=== PATIENT | female | born 1945 | race Caucasian/White ===

== ENCOUNTER 2016-04-11 16:00 | Outpatient (CLI) | payer MEDICARE, MEDICAID | END 2016-04-11 16:01 | disposition home or self-care (01) | DX: J11.1 Influenza due to unidentified influenza virus with other respiratory manifestations (principal) ==

== ENCOUNTER 2016-06-29 13:26 | Outpatient (CLI) | payer MEDICARE, MEDICAID | END 2016-06-29 13:27 | disposition home or self-care (01) | DX: R94.6 Abnormal results of thyroid function studies (principal); R73.09 Other abnormal glucose ==

== ENCOUNTER 2016-12-01 08:00 | Outpatient (CLI) | payer MEDICARE, MEDICAID ==
[2016-12-02 00:13] LABS: HEMOGLOBIN A1C 0.77 g/dL
== END 2016-12-01 08:01 | disposition home or self-care (01) ==
LOC: LAB.R 08:00
DX: E11.9 Type 2 diabetes mellitus without complications (principal)
CPT/HCPCS: 83036

== ENCOUNTER 2016-12-13 06:20 | Outpatient (CLI) | payer MEDICARE, MEDICAID ==
[2016-12-13 19:57] LABS: CALCIUM 9.2 mg/dL (8.5-10.3); CREATININE 1.3 mg/dL (0.4-1.0); POTASSIUM 4.3 mmol/L (3.5-5.0)
== END 2016-12-13 06:21 | disposition home or self-care (01) ==
LOC: LAB.R 06:20
DX: E88.9 Metabolic disorder, unspecified (principal)
CPT/HCPCS: 80048

== ENCOUNTER 2017-04-06 09:50 | Outpatient (CLI) | payer MEDICARE, MEDICAID ==
[2017-04-06 10:34] LABS: CALCIUM 9.5 mg/dL (8.5-10.3); CREATININE 1.2 mg/dL (0.4-1.0)
[2017-04-06 10:51] LABS: HB2 TOTAL 10.7 g/dL; HEMOGLOBIN A1C 0.63 g/dL; HEMOGLOBIN A1C % 7.5 % (4.6-6.2)
== END 2017-04-06 09:51 | disposition home or self-care (01) ==
LOC: LAB.R 09:50
DX: E11.9 Type 2 diabetes mellitus without complications (principal); I43 Cardiomyopathy in diseases classified elsewhere; E03.9 Hypothyroidism, unspecified
CPT/HCPCS: 80048; 83036; 84443

== ENCOUNTER 2017-05-15 11:15 | Outpatient (CLI) | payer MEDICARE, MEDICAID ==
[2017-05-15 16:29] LABS: BILIRUBIN,URINE NEGATIVE (NEGATIVE); GLUCOSE, URINE (UA) NEGATIVE (NEGATIVE); KETONES,URINE (UA) NEGATIVE (NEGATIVE); LEUKOCYTE ESTERASE, URINE TRACE (NEGATIVE); NITRITE,URINE NEGATIVE (NEGATIVE); OCCULT BLOOD,URINE NEGATIVE (NEGATIVE); PROTEIN,URINE NEGATIVE (NEGATIVE); UROBILINOGEN,URINE 0.2 (NORMAL) E.U./dL (NORMAL)
[2017-05-15 16:30] LABS: CLARITY,URINE CLEAR (CLEAR)
[2017-05-15 16:47] LABS: BACTERIA,URINE Rare /HPF (None Seen); RBC,URINE None Seen /HPF (0-5); SQUAMOUS EPITHELIAL CELL,UR MOD Squamous (<= Few)
== END 2017-05-15 11:16 | disposition home or self-care (01) ==
LOC: LAB.R 11:15
DX: R30.0 Dysuria (principal)
CPT/HCPCS: 81001; 81003; 87086

== ENCOUNTER 2017-10-02 20:00 | Outpatient (CLI) | payer MEDICARE, MEDICAID ==
[2017-10-03 00:27] LABS: BASOPHILS # (AUTO) 0.2 10^3/uL (0.0-0.1); BASOPHILS % (AUTO) 1.9 %; EOSINOPHILS # (AUTO) 0.2 10^3/uL (0.0-0.7); EOSINOPHILS % (AUTO) 2.7 %; HGB - HEMOGLOBIN 11.5 g/dL (12.0-16.0); LYMPHOCYTES # (AUTO) 2.8 10^3/uL (1.5-3.5); LYMPHOCYTES % (AUTO) 34.3 %; MEAN CORPUSCULAR HGB CONC 33.7 g/dL (32.0-36.0); MEAN CORPUSCULAR VOLUME 91.8 fL (81.0-99.0); MEAN PLATELET VOLUME 8.5 fL (7.9-10.8); MONOCYTES # (AUTO) 0.4 10^3/uL (0.0-1.0); MONOCYTES % (AUTO) 5.3 %; NEUTROPHILS # (AUTO) 4.5 10^3/uL (1.5-6.6); NEUTROPHILS % (AUTO) 55.8 %; PLT - PLATELET COUNT 247 10^3/uL (130-450); RED CELL DISTRIBUTION WIDTH 14.3 % (12.0-15.0); WHITE BLOOD COUNT 8.1 x10^3/uL (4.8-10.8)
[2017-10-03 01:06] LABS: ALBUMIN 3.5 g/dL (3.2-5.5); ALBUMIN/GLOBULIN RATIO 1.1 (1.0-2.2); BILIRUBIN,TOTAL 0.3 mg/dL (0.2-1.0); CALCIUM 9.3 mg/dL (8.5-10.3); CREATININE 1.1 mg/dL (0.4-1.0); MAGNESIUM 1.7 mg/dL (1.7-2.8); TOTAL PROTEIN 6.7 g/dL (6.7-8.2)
[2017-10-03 02:06] LABS: HB2 TOTAL 12.3 g/dL; HEMOGLOBIN A1C 0.68 g/dL; HEMOGLOBIN A1C % 7.2 % (4.6-6.2)
== END 2017-10-02 20:01 | disposition home or self-care (01) ==
LOC: LAB.R 20:00
DX: R79.89 Other specified abnormal findings of blood chemistry (principal); R73.09 Other abnormal glucose; E61.2 Magnesium deficiency; R94.6 Abnormal results of thyroid function studies
CPT/HCPCS: 80053; 83036; 83735; 84443; 85025

== ENCOUNTER 2018-03-13 19:25 | Outpatient (CLI) | payer MEDICARE, MEDICAID ==
[2018-03-13 17:12] LABS: BASOPHILS % (AUTO) 0.4 %; EOSINOPHILS # (AUTO) 0.1 10^3/uL (0.0-0.7); EOSINOPHILS % (AUTO) 1.6 %; HGB - HEMOGLOBIN 11.5 g/dL (12.0-16.0); LYMPHOCYTES # (AUTO) 2.6 10^3/uL (1.5-3.5); LYMPHOCYTES % (AUTO) 31.4 %; MEAN CORPUSCULAR HEMOGLOBIN 29.9 pg (27.0-31.0); MEAN CORPUSCULAR HGB CONC 33.2 g/dL (32.0-36.0); MEAN PLATELET VOLUME 8.3 fL (7.9-10.8); MONOCYTES # (AUTO) 0.7 10^3/uL (0.0-1.0); MONOCYTES % (AUTO) 8.1 %; NEUTROPHILS # (AUTO) 4.8 10^3/uL (1.5-6.6); NEUTROPHILS % (AUTO) 58.5 %; PLT - PLATELET COUNT 264 10^3/uL (130-450); RED BLOOD COUNT 3.86 10^6/uL (4.20-5.40); WHITE BLOOD COUNT 8.3 x10^3/uL (4.8-10.8)
[2018-03-13 17:16] LABS: CALCIUM 9.3 mg/dL (8.5-10.3); CREATININE 1.1 mg/dL (0.4-1.0)
[2018-03-13 18:19] LABS: HEMOGLOBIN A1C 0.54 g/dL; HEMOGLOBIN A1C % 6.3 % (4.6-6.2)
== END 2018-03-13 23:59 | disposition home or self-care (01) ==
LOC: LAB.R 19:25
DX: D64.9 Anemia, unspecified (principal); E11.9 Type 2 diabetes mellitus without complications
CPT/HCPCS: 80048; 82728; 83036; 85025

== ENCOUNTER 2018-04-23 08:00 | Outpatient (CLI) | payer MEDICARE, MEDICAID ==
[2018-04-23 13:59] LABS: BILIRUBIN,URINE NEGATIVE (NEGATIVE); GLUCOSE, URINE (UA) NEGATIVE (NEGATIVE); KETONES,URINE (UA) NEGATIVE (NEGATIVE); LEUKOCYTE ESTERASE, URINE NEGATIVE (NEGATIVE); NITRITE,URINE NEGATIVE (NEGATIVE); OCCULT BLOOD,URINE NEGATIVE (NEGATIVE); PH,URINE 5.5 PH (5.0-7.5); PROTEIN,URINE NEGATIVE (NEGATIVE); UROBILINOGEN,URINE 0.2 (NORMAL) E.U./dL (NORMAL)
[2018-04-23 14:14] LABS: BACTERIA,URINE Rare /HPF (None Seen); CLARITY,URINE CLEAR (CLEAR); RBC,URINE 0-5 /HPF (0-5); SQUAMOUS EPITHELIAL CELL,UR FEW Squamous (<= Few)
== END 2018-04-23 23:59 | disposition home or self-care (01) ==
LOC: LAB.R 08:00
DX: E11.9 Type 2 diabetes mellitus without complications (principal)
CPT/HCPCS: 81001

== ENCOUNTER 2018-06-05 08:00 | Outpatient (CLI) | payer MEDICARE, MEDICAID ==
[2018-06-05 22:37] LABS: CALCIUM 9.6 mg/dL (8.5-10.3); CREATININE 1.1 mg/dL (0.4-1.0)
[2018-06-05 22:57] LABS: HB2 TOTAL 11.4 g/dL; HEMOGLOBIN A1C 0.66 g/dL; HEMOGLOBIN A1C % 7.4 % (4.6-6.2)
== END 2018-06-05 23:59 | disposition home or self-care (01) ==
LOC: LAB.R 08:00
PROVIDERS: ATTEND Family Medicine
DX: E11.9 Type 2 diabetes mellitus without complications (principal)
CPT/HCPCS: 80048; 83036

== ENCOUNTER 2018-06-19 20:30 | Outpatient (CLI) | payer MEDICARE, MEDICAID ==
[2018-06-19 21:27] LABS: BASOPHILS % (AUTO) 0.4 %; EOSINOPHILS # (AUTO) 0.2 10^3/uL (0.0-0.7); EOSINOPHILS % (AUTO) 1.7 %; HGB - HEMOGLOBIN 10.3 g/dL (12.0-16.0); LYMPHOCYTES # (AUTO) 3.3 10^3/uL (1.5-3.5); LYMPHOCYTES % (AUTO) 32.6 %; MEAN CORPUSCULAR HEMOGLOBIN 29.3 pg (27.0-31.0); MEAN CORPUSCULAR HGB CONC 32.6 g/dL (32.0-36.0); MONOCYTES # (AUTO) 0.9 10^3/uL (0.0-1.0); MONOCYTES % (AUTO) 8.4 %; NEUTROPHILS # (AUTO) 5.8 10^3/uL (1.5-6.6); NEUTROPHILS % (AUTO) 56.9 %; PLT - PLATELET COUNT 261 10^3/uL (130-450); RED BLOOD COUNT 3.52 10^6/uL (4.20-5.40); WHITE BLOOD COUNT 10.2 x10^3/uL (4.8-10.8)
== END 2018-06-19 23:59 | disposition home or self-care (01) ==
LOC: LAB.R 20:30
PROVIDERS: ATTEND Family Medicine
DX: E11.9 Type 2 diabetes mellitus without complications (principal)
CPT/HCPCS: 82728; 85025

== ENCOUNTER 2018-12-13 15:15 | Outpatient (CLI) | payer MEDICARE, MEDICAID ==
[2018-12-13 16:20] LABS: BASOPHILS % (AUTO) 0.4 %; EOSINOPHILS # (AUTO) 0.1 10^3/uL (0.0-0.7); EOSINOPHILS % (AUTO) 1.3 %; HGB - HEMOGLOBIN 10.9 g/dL (12.0-16.0); LYMPHOCYTES % (AUTO) 32.8 %; MEAN CORPUSCULAR HEMOGLOBIN 29.5 pg (27.0-31.0); MEAN CORPUSCULAR HGB CONC 32.7 g/dL (32.0-36.0); MEAN CORPUSCULAR VOLUME 90.2 fL (81.0-99.0); MONOCYTES # (AUTO) 0.7 10^3/uL (0.0-1.0); NEUTROPHILS # (AUTO) 5.3 10^3/uL (1.5-6.6); PLT - PLATELET COUNT 281 10^3/uL (130-450); RED BLOOD COUNT 3.69 10^6/uL (4.20-5.40); RED CELL DISTRIBUTION WIDTH 13.9 % (12.0-15.0); WHITE BLOOD COUNT 9.2 x10^3/uL (4.8-10.8)
[2018-12-13 16:25] LABS: ALBUMIN 3.8 g/dL (3.2-5.5); ALBUMIN/GLOBULIN RATIO 1.3 (1.0-2.2); BILIRUBIN,TOTAL 0.6 mg/dL (0.2-1.0); CALCIUM 9.8 mg/dL (8.5-10.3); CREATININE 1.4 mg/dL (0.4-1.0); TOTAL PROTEIN 6.8 g/dL (6.7-8.2)
== END 2018-12-13 23:59 | disposition home or self-care (01) ==
LOC: LAB.R 15:15
DX: E11.9 Type 2 diabetes mellitus without complications (principal); E03.9 Hypothyroidism, unspecified
CPT/HCPCS: 80053; 84443; 85025

== ENCOUNTER 2019-03-02 19:40 | Outpatient (CLI) | payer MEDICARE, MEDICAID ==
[2019-03-02 20:40] LABS: BASOPHILS # (AUTO) 0.1 10^3/uL (0.0-0.1); BASOPHILS % (AUTO) 0.7 %; EOSINOPHILS # (AUTO) 0.2 10^3/uL (0.0-0.7); EOSINOPHILS % (AUTO) 2.4 %; HGB - HEMOGLOBIN 10.4 g/dL (12.0-16.0); LYMPHOCYTES # (AUTO) 3.6 10^3/uL (1.5-3.5); LYMPHOCYTES % (AUTO) 40.9 %; MEAN CORPUSCULAR HGB CONC 31.8 g/dL (32.0-36.0); MEAN CORPUSCULAR VOLUME 91.1 fL (81.0-99.0); MONOCYTES # (AUTO) 0.7 10^3/uL (0.0-1.0); MONOCYTES % (AUTO) 8.2 %; NEUTROPHILS # (AUTO) 4.1 10^3/uL (1.5-6.6); NEUTROPHILS % (AUTO) 47.2 %; PLT - PLATELET COUNT 257 10^3/uL (130-450); RED BLOOD COUNT 3.59 10^6/uL (4.20-5.40); RED CELL DISTRIBUTION WIDTH 13.9 % (12.0-15.0); WHITE BLOOD COUNT 8.7 x10^3/uL (4.8-10.8)
[2019-03-02 20:50] LABS: CALCIUM 9.9 mg/dL (8.5-10.3); CREATININE 1.3 mg/dL (0.4-1.0)
== END 2019-03-02 23:59 | disposition home or self-care (01) ==
LOC: LAB.R 19:40
PROVIDERS: ATTEND Family Medicine
DX: D50.9 Iron deficiency anemia, unspecified (principal); E11.9 Type 2 diabetes mellitus without complications
CPT/HCPCS: 80048; 82728; 85025

== ENCOUNTER 2019-04-25 08:00 | Outpatient (CLI) | payer MEDICARE, MEDICAID | END 2019-04-25 23:59 | disposition home or self-care (01) | LOC: LAB.R 08:00 | DX: D50.9 Iron deficiency anemia, unspecified (principal) | CPT/HCPCS: 82728; 85025 ==

== ENCOUNTER 2019-04-27 08:00 | Outpatient (CLI) | payer MEDICARE, MEDICAID ==
[2019-04-27 18:33] LABS: BASOPHILS # (AUTO) 0.1 10^3/uL (0.0-0.1); BASOPHILS % (AUTO) 0.9 %; EOSINOPHILS # (AUTO) 0.1 10^3/uL (0.0-0.7); EOSINOPHILS % (AUTO) 1.8 %; HGB - HEMOGLOBIN 11.6 g/dL (12.0-16.0); LYMPHOCYTES # (AUTO) 2.4 10^3/uL (1.5-3.5); LYMPHOCYTES % (AUTO) 30.3 %; MEAN CORPUSCULAR HEMOGLOBIN 29.6 pg (27.0-31.0); MEAN CORPUSCULAR HGB CONC 32.2 g/dL (32.0-36.0); MEAN CORPUSCULAR VOLUME 91.8 fL (81.0-99.0); MEAN PLATELET VOLUME 10.7 fL (7.9-10.8); MONOCYTES # (AUTO) 0.6 10^3/uL (0.0-1.0); MONOCYTES % (AUTO) 7.8 %; NEUTROPHILS # (AUTO) 4.6 10^3/uL (1.5-6.6); NEUTROPHILS % (AUTO) 58.4 %; PLT - PLATELET COUNT 238 10^3/uL (130-450); RED BLOOD COUNT 3.92 10^6/uL (4.20-5.40); RED CELL DISTRIBUTION WIDTH 13.8 % (12.0-15.0); WHITE BLOOD COUNT 7.9 x10^3/uL (4.8-10.8)
== END 2019-04-27 23:59 | disposition home or self-care (01) ==
LOC: LAB.R 08:00
PROVIDERS: ATTEND Family Medicine
DX: I43 Cardiomyopathy in diseases classified elsewhere (principal); E56.9 Vitamin deficiency, unspecified
CPT/HCPCS: 85025

== ENCOUNTER 2019-05-12 08:00 | Outpatient (CLI) | payer MEDICARE, MEDICAID ==
[2019-05-12 17:15] LABS: BASOPHILS # (AUTO) 0.1 10^3/uL (0.0-0.1); BASOPHILS % (AUTO) 0.5 %; EOSINOPHILS # (AUTO) 0.2 10^3/uL (0.0-0.7); EOSINOPHILS % (AUTO) 1.3 %; HGB - HEMOGLOBIN 10.8 g/dL (12.0-16.0); LYMPHOCYTES # (AUTO) 2.5 10^3/uL (1.5-3.5); LYMPHOCYTES % (AUTO) 21.9 %; MEAN CORPUSCULAR HEMOGLOBIN 29.8 pg (27.0-31.0); MEAN CORPUSCULAR HGB CONC 32.9 g/dL (32.0-36.0); MEAN CORPUSCULAR VOLUME 90.6 fL (81.0-99.0); MEAN PLATELET VOLUME 10.3 fL (7.9-10.8); MONOCYTES # (AUTO) 0.7 10^3/uL (0.0-1.0); MONOCYTES % (AUTO) 6.4 %; NEUTROPHILS # (AUTO) 7.8 10^3/uL (1.5-6.6); NEUTROPHILS % (AUTO) 69.4 %; PLT - PLATELET COUNT 246 10^3/uL (130-450); RED BLOOD COUNT 3.62 10^6/uL (4.20-5.40); RED CELL DISTRIBUTION WIDTH 13.5 % (12.0-15.0); WHITE BLOOD COUNT 11.2 x10^3/uL (4.8-10.8)
[2019-05-12 17:33] LABS: ALBUMIN 3.5 g/dL (3.2-5.5); ALBUMIN/GLOBULIN RATIO 1.2 (1.0-2.2); BILIRUBIN,TOTAL 0.4 mg/dL (0.2-1.0); CALCIUM 9.3 mg/dL (8.5-10.3); CREATININE 1.2 mg/dL (0.4-1.0); TOTAL PROTEIN 6.4 g/dL (6.7-8.2)
[2019-05-12 17:44] LABS: HEMOGLOBIN A1C 0.84 g/dL; HEMOGLOBIN A1C % 9.1 % (4.6-6.2)
== END 2019-05-12 23:59 | disposition home or self-care (01) ==
LOC: LAB.R 08:00
DX: I43 Cardiomyopathy in diseases classified elsewhere (principal); D50.9 Iron deficiency anemia, unspecified; I73.9 Peripheral vascular disease, unspecified; E56.9 Vitamin deficiency, unspecified; E11.9 Type 2 diabetes mellitus without complications
CPT/HCPCS: 80053; 83036; 85025

== ENCOUNTER 2019-06-17 10:43 | Outpatient (CLI) | payer MEDICARE, MEDICAID | END 2019-06-17 23:59 | disposition critical access hospital (66) | LOC: EMS 10:43 | PROVIDERS: ATTEND Surgery | DX: R06.00 Dyspnea, unspecified (principal); R03.1 Nonspecific low blood-pressure reading; M54.9 Dorsalgia, unspecified | CPT/HCPCS: A0425; A0429 ==

== ENCOUNTER 2019-06-17 11:12 | Inpatient (IN) | payer MEDICARE, MEDICAID ==
--- NOTE | 2019-06-17 11:17 | ED Physician Documentation ---
PD HPI DYSPNEA - Stated complaint Stated Complaint: C+ SOA - History obtained from History obtained from: Patient - History of Present Illness Timing - onset: How many days ago (She has been ill for about 5 or 6 days with cough fevers and some trouble breathing. She has had oxygen requirement of 3 L nasal cannula for adequate oxygenation. Today she seemed to have lower saturations in the upper 80s on the same oxygen amount but also of concern was hypotension. She had also had decreased oral intake and appeared presumably dehydrated.) Timing - onset during: Rest Timing - duration: Days (5-6) Timing - details: Gradual onset, Still present (Worsening today with increased work of breathing and also hypotension and decreased oral intake.) Inciting event(s): URI (COVID positive) Improved by: O2 Worsened by: Exertion, Coughing Associated symptoms: Fever, Cough, Wheezing. No: Hemoptysis, Chest pain / discomfort, Bilateral edema Similar symptoms before: Has not had sx before Recently seen: Other (. She was assessed by nursing staff at [facility]. I do not believe she had a physician evaluation was found to have low saturation in the upper 80s and hypotension in the 80s systolic.) Review of Systems Constitutional: reports: Fever, Chills Nose: reports: Congestion. denies: Rhinorrhea / runny nose Throat: denies: Sore throat Cardiac: denies: Chest pain / pressure, Palpitations, Pedal edema Respiratory: reports: Dyspnea, Cough, Wheezing. denies: Hemoptysis GI: reports: Nausea, Vomiting. denies: Abdominal Pain, Diarrhea : denies: Dysuria (Less urine output) Skin: denies: Rash, Lesions Neurologic: reports: Generalized weakness, Confused (baseline). denies: Focal weakness, Numbness Immunocompromised: denies: Immunocompromised PD PAST MEDICAL HISTORY - Past Medical History Cardiovascular: Hypertension, High cholesterol Respiratory: CPAP use Endocrine/Autoimmune: Type 2 diabetes, HyPOthyroidism GI: None : Incontinence HEENT: Chronic vision loss, Glaucoma Psych: Anxiety, Bipolar disorder Musculoskeletal: Osteopenia, Chronic back pain Derm: Herpes zoster - Past Surgical History Past Surgical History: Yes General: Appendectomy HEENT: Cataracts Derm: Skin cancer surgery - Present Medications Home Medications: Ambulatory Orders Medication Instructions Recorded Confirmed Clonazepam 0.25 mg PO DAILY PRN 03/14/13 06/17/19 Gabapentin [Neurontin] 300 mg PO QID 03/14/13 06/17/19 Metoprolol Tartrate [Lopressor] 25 mg PO BIDWM 03/14/13 06/17/19 OLANZapine [ZyPREXA] 15 mg PO QPM 03/14/13 06/17/19 Travoprost 0.004% Ophth Drops 1 drops EACHEYE QPM 03/14/13 06/17/19 [Travatan Z] Ascorbic Acid [Vitamin C] 500 mg PO BID 04/25/14 06/17/19 Ipratropium/Albuterol [Combivent 1 puffs INH QID 05/27/14 06/17/19 Respimat] Acetaminophen [Tylenol] 650 mg PO DAILY 06/17/19 06/17/19 Acetaminophen [Tylenol] 650 mg PO Q4H PRN 06/17/19 06/17/19 Aspirin Chewable [St [place] 81 mg PO DAILY 06/17/19 06/17/19 Aspirin] Brimonidine Tartrate 1 drops EACHEYE BID 06/17/19 06/17/19 Enalapril Maleate 10 mg PO DAILY 06/17/19 06/17/19 Ferrous Gluconate [Iron] 240 mg PO DAILY 06/17/19 06/17/19 Insulin Glargine [Lantus Solostar] 38 unit SUBQ QPM 06/17/19 06/17/19 Levothyroxine [Synthroid] 75 mcg PO QDAC 06/17/19 06/17/19 Magnesium 250 mg PO DAILY 06/17/19 06/17/19 Metformin HCl 1,000 mg PO BIDWM 06/17/19 06/17/19 Multivitamin [Theragran] 1 tab PO DAILY 06/17/19 06/17/19 Simvastatin 40 mg PO QPM 06/17/19 06/17/19 clonazePAM [Clonazepam] 0.5 mg PO DAILY 06/17/19 06/17/19 oxyCODONE/ACET 5/325 [Percocet 5 0.5 tab PO 0800,1200 06/17/19 06/17/19 mg/325 mg] oxyCODONE/ACET 5/325 [Percocet 5 1 tab PO QPM 06/17/19 06/17/19 mg/325 mg] oxyCODONE/ACET 5/325 [Percocet 5 2 tab PO Q6H PRN 06/17/19 06/17/19 mg/325 mg] - Allergies Allergies/Adverse Reactions: Allergies Allergy/AdvReac Type Severity Reaction Status Date / Time No Known Drug Allergies Allergy Verified 06/17/19 11:20 - Living Situation Living Situation: reports: With caregiver(s) Living Arrangement: reports: detention - Social History Does the pt smoke?: No Smoking Status: Former smoker Does the pt drink ETOH?: No Does the pt have substance abuse?: No - Family History Family history: reports: Non contributory - POLST Patient has POLST: Yes POLST Status: She had been DNR/DNI that was changed by the family just yesterday in response to discussion by somebody at [facility] but not sure if Dr. Rosas. PD ED PE NORMAL - Vitals Vital signs reviewed: Yes - General General: No acute distress, Well developed/nourished, Other (Somewhat forgetful with poor short-term memory. She is oriented to person and place) - HEENT HEENT: Atraumatic, Ears normal, Pharynx benign. No: Moist mucous membranes - Neck Neck: Supple, no meningeal sign, No adenopathy - Cardiac Cardiac: RRR, No murmur - Respiratory Respiratory: No: Clear bilaterally (There is diffuse expiratory wheezing type sounds and crackles diffusely. No coarse sounds per se.) - Abdomen Abdomen: Normal bowel sounds, Soft, Non tender, Non distended, No organomegaly - Female Female : Deferred - Rectal Rectal: Deferred - Back Back: No CVA TTP - Derm Derm: Normal color, Warm and dry - Extremities Extremities: No tenderness to palpate, Normal ROM s pain, No edema, No calf tenderness / cord - Neuro Neuro: Alert and oriented X 3, No motor deficit, Normal speech Results - Vitals Vitals: Vital Signs - 24 hr 06/17/19 06/17/19 06/17/19 11:21 11:32 12:13 Temperature 37.5 C Heart Rate 80 84 75 Respiratory 26 H 23 18 Rate Blood Pressure 97/68 99/52 L 96/50 L O2 Saturation 98 97 100 06/17/19 12:30 Temperature 36.8 C Heart Rate 80 Respiratory 20 Rate Blood Pressure 118/67 O2 Saturation 100 Oxygen O2 Source Nasal cannula Oxygen Flow Rate 3 - Labs Labs: Laboratory Tests 06/17/19 06/17/19 06/17/19 11:29 11:29 11:29 WBC 8.2 RBC 3.43 L Hgb 10.0 L Hct 31.9 L MCV 93.0 MCH 29.2 MCHC 31.3 L RDW 14.5 Plt Count 315 MPV 9.7 Neut # (Auto) 5.5 Lymph # (Auto) 1.8 [place] # (Auto) 0.7 Eos # (Auto) 0.0 Baso # (Auto) 0.0 Absolute Nucleated RBC 0.00 Nucleated RBC % 0.0 Sodium 131 L Potassium 5.0 Chloride 97 L Carbon Dioxide 21 Anion Gap 13.0 BUN 47 H Creatinine 2.1 H Estimated GFR (MDRD) 23 L Glucose 167 H Lactic Acid Calcium 8.7 Magnesium 2.1 Total Bilirubin 0.3 AST 33 ALT 29 Alkaline Phosphatase 57 B-Natriuretic Peptide 47 Total Protein 6.6 L Albumin 3.0 L Globulin 3.6 Albumin/Globulin Ratio 0.8 L Lipase 53 H 06/17/19 11:29 WBC RBC Hgb Hct MCV MCH MCHC RDW Plt Count MPV Neut # (Auto) Lymph # (Auto) [place] # (Auto) Eos # (Auto) Baso # (Auto) Absolute Nucleated RBC Nucleated RBC % Sodium Potassium Chloride Carbon Dioxide Anion Gap BUN Creatinine Estimated GFR (MDRD) Glucose Lactic Acid 0.8 Calcium Magnesium Total Bilirubin AST ALT Alkaline Phosphatase B-Natriuretic Peptide Total Protein Albumin Globulin Albumin/Globulin Ratio Lipase - Rads (name of study) chest xray Radiology: Prelim report reviewed (Negative for pneumonic infiltrate), See rad report PD MEDICAL DECISION MAKING - ED course Complexity details: considered differential (She is known covered positive with pneumonic breath sounds and hypoxia. Her chest x-rays does not show obvious infiltrates. However clinically she is still sounding like she is getting worse. Issue would also be underperfusion leading to general weakness and some of her symptoms. Her blood pressure was a bit improved on route here and is in the 90s systolic so mildly hypotensive. She does appear clinically dehydrated. Will give IV fluids judiciously so as to not fluid overload her. Get a chest x- ray and look for signs of heart failure as well. There is no peripheral edema or such to suggest this. She is going to need gentle hydration because of the dehydration and acute elevated creatinine. Evaluate for oxygen needs. At this point I think she is at a higher level of care than would be appropriate back at the retirement and I talked with the hospitalist.), d/w patient Departure - Departure Disposition: [facility] DC/Xfer Clinical Impression: Transient hypotension, Dehydration, Viral pneumonitis, Hypoxemia, Acute kidney injury Condition: Stable Record reviewed to determine appropriate education?: Yes Discharge Date/Time: 06/17/19 14:55
[2019-06-17] MEDS ORDERED: ACETAMINOPHEN 1,000 MG/100 ML 100 ML IV STA (12:05)
[2019-06-17] MEDS ORDERED: SODIUM CHLORIDE 0.9% 1,000 ML IV ONE (12:06)
[2019-06-17 12:17] LABS: BASOPHILS % (AUTO) 0.2 %; EOSINOPHILS % (AUTO) 0.1 %; LYMPHOCYTES # (AUTO) 1.8 10^3/uL (1.5-3.5); LYMPHOCYTES % (AUTO) 21.6 %; MEAN CORPUSCULAR HEMOGLOBIN 29.2 pg (27.0-31.0); MEAN CORPUSCULAR HGB CONC 31.3 g/dL (32.0-36.0); MEAN PLATELET VOLUME 9.7 fL (7.9-10.8); MONOCYTES # (AUTO) 0.7 10^3/uL (0.0-1.0); MONOCYTES % (AUTO) 8.8 %; NEUTROPHILS # (AUTO) 5.5 10^3/uL (1.5-6.6); NEUTROPHILS % (AUTO) 68.1 %; PLT - PLATELET COUNT 315 10^3/uL (130-450); RED BLOOD COUNT 3.43 10^6/uL (4.20-5.40); RED CELL DISTRIBUTION WIDTH 14.5 % (12.0-15.0); WHITE BLOOD COUNT 8.2 x10^3/uL (4.8-10.8)
[2019-06-17 12:26] LABS: ALBUMIN/GLOBULIN RATIO 0.8 (1.0-2.2); BILIRUBIN,TOTAL 0.3 mg/dL (0.2-1.0); CALCIUM 8.7 mg/dL (8.5-10.3); CREATININE 2.1 mg/dL (0.4-1.0); MAGNESIUM 2.1 mg/dL (1.7-2.8); TOTAL PROTEIN 6.6 g/dL (6.7-8.2)
--- NOTE | 2019-06-17 12:43 | XRAY Report ---
Reason: dyspnea and cough Procedure Date: 06/17/2019 Accession Number: [id number] / [id number] Procedure: XR - Chest 1 View X-Ray CPT Code: 33211 Final Report FULL RESULT: EXAM: CHEST RADIOGRAPHY EXAM DATE: 06/17/2019 12:32 PM. CLINICAL HISTORY: Dyspnea and cough. COMPARISON: CHEST 2 VIEW PA/LAT 04/25/2014 12:43 PM. TECHNIQUE: Portable upright AP view of the chest taken 1208 hrs. 06/17/2019. FINDINGS: Lungs/Pleura: Lungs are without consolidation. Negative for pleural fluid. Mediastinum: Heart size is normal. Patient is rotated. Other: None. IMPRESSION: Negative for pneumonic infiltrate. RADIA
[2019-06-17] MEDS ORDERED: ACETAMINOPHEN 325 MG TABLET PO PRN (12:54)
--- NOTE | 2019-06-17 14:54 | PHARMACY PROGRESS NOTE ---
- Best Possible Medication History Admit Date and Time: 06/17/19 0164 Processed by: Pharmacy Medication History completed: Yes Secondary Source(s): Facility MAR as ONLY source As the person ultimately responsible for medication therapy, providers are able to order a medication from an existing home medication list in [facility] via the "Reconcile Routine" prior to Confirmation of that medication by support representative. Such practice is discouraged except when the physician, in their clinical judgment, deems that a medical need exists for a medication without regard to previous use.
[2019-06-17 15:30] LABS: BILIRUBIN,URINE NEGATIVE (NEGATIVE); GLUCOSE, URINE (UA) NEGATIVE (NEGATIVE); KETONES,URINE (UA) NEGATIVE (NEGATIVE); LEUKOCYTE ESTERASE, URINE NEGATIVE (NEGATIVE); NITRITE,URINE NEGATIVE (NEGATIVE); OCCULT BLOOD,URINE NEGATIVE (NEGATIVE); PH,URINE 5.5 PH (5.0-7.5); PROTEIN,URINE TRACE mg/dL (NEGATIVE); UROBILINOGEN,URINE 0.2 (NORMAL) E.U./dL (NORMAL)
[2019-06-17 15:31] LABS: CLARITY,URINE CLEAR (CLEAR)
[2019-06-17] MEDS: DEXTROSE 5%-0.9% NACL 1,000 ML IV SCH (15:46)
[2019-06-17] MEDS: IPRATROPIUM/ALBUTEROL 3 ML NEB INH SCH (17:50)
--- NOTE | 2019-06-17 18:04 | HISTORY & PHYSICAL EXAMINATION ---
DATE OF SERVICE: 06/17/2019 Physician: Mirela Summers MD HISTORY OF PRESENT ILLNESS: This is a 73-year-old white female who resides at [facility]. She has a history of COPD, hypertension, anemia, diabetes, bipolar disorder, hypothyroidism and glaucoma. The patient developed low blood pressure, noticed by the staff there and a fever. They were continuing to give the blood pressure medications over the past several days despite a low-grade fever. She was brought to the Emergency Room by ambulance. The patient has tested COVID positive while residing at [facility] within this last week. The patient denies any cough. The patient was hypoxic on room air at 87% on presentation. She received a liter of fluid and blood pressure improved to 98 systolic in the Emergency Room. Chest x-ray showed no infiltrates but she was started on supplemental oxygen for the desaturation. The patient denies any wheezing or air hunger. She cannot give me a past detailed history as she is somewhat lethargic, awakening from being very somnolent when she was hypotensive. PAST MEDICAL HISTORY: Diabetes, anemia, hypertension, bipolar disorder, hypothyroidism, glaucoma, COPD. ALLERGIES: NONE. MEDICATIONS: 1. Tylenol p.r.n. 2. Vitamin C 500 mg daily. 3. Several eye drops. 4. Simvastatin 40 mg every night. 5. Oxycodone, half tablet in the morning and 1 tablet in the evening. 6. Zyprexa 15 mg every night. 7. Metoprolol tartrate 25 mg b.i.d. 8. Metformin 1000 mg b.i.d. 9. Magnesium 250 mg daily. 10. Synthroid 75 mcg daily. 11. Insulin Lantus 38 units daily. 12. Gabapentin 300 mg q.i.d. 13. Iron gluconate 240 mg daily. 14. Enalapril 10 mg daily. 15. Clonazepam 0.5 mg daily. 16. Multivitamin daily. 17. Combivent inhaler q.i.d. 18. Clonazepam 0.25 mg daily p.r.n. anxiety. 19. Aspirin 81 mg daily. FAMILY HISTORY: No inherited diseases. SOCIAL HISTORY: She is currently not a smoker. There is no current alcohol abuse history. REVIEW OF SYSTEMS: She takes Oxycodone for chronic low back pain and wanted it to be dosed now. A comprehensive review of systems was done by chart review of old records and this ER report and some questioning with the patient. The pertinent positives are listed above and the rest are negative. PHYSICAL EXAMINATION: GENERAL: Elderly white female. She is lethargic but awake and answers very slowly but appropriately. She is not in respiratory distress. VITAL SIGNS: Blood pressure is now 121/54, heart rate 80 in sinus rhythm, afebrile, oxygen saturation is 96% on 3 liters oxygen by nasal cannula. HEENT: Reveals dry oral mucosa and she has marked pallor of her skin. NECK: No JVD in a vertical position. CHEST: Has scattered wheezes and rales. HEART: Distant heart sounds. No audible murmur. ABDOMEN: Soft. EXTREMITIES: No clubbing, cyanosis or edema. NEUROLOGIC: Grossly intact but currently somewhat weak and sleepy. LABORATORY DATA: Sodium 131, potassium 5.0, BUN 47, creatinine 2.1. Her usual creatinine is 1.2, glucose 167. Lactic acid normal at 0.8. Normal liver tests. BNP normal at 47, albumin low at 3, lipase high at 53. White blood count 8.2, hemoglobin 10, MCV 93, platelet count 315. Urinalysis unremarkable. CHEST X-RAY: Negative for any infiltrate and normal heart size. EKG: Sinus rhythm at a rate of 80. Right atrial enlargement, QS-waves are present in V1 and V2, prolonged QT-interval of 511 milliseconds. There is no old EKG available for comparison. IMPRESSION/DIAGNOSES: 1. Hypotension, which is likely on the basis of dehydration. 2. Acute kidney injury on top of chronic kidney disease. 3. COVID positive infection. 4. Chronic obstructive pulmonary disease with hypoxia. 5. Hyponatremia. 6. Anemia. 7. History of hypertension. 8. Diabetes, on Insulin and oral agent. 9. Bipolar disorder. 10. Hypothyroidism. 11. Glaucoma. PLAN: Admit the patient to Med/Surg inpatient status. Begin IV fluids for rehydration and follow her vital signs. Begin isolation precautions because of her COVID positive status. Recheck a CXR in the morning, as an infiltrate may blossom after rehydration. Resume her medications for low back painb, bipolar disorder, hypothyroidism and glaucoma. Hold her blood pressure medications until blood pressure is in the hypertensive range. Begin a diabetic diet. We will liberalize salt intake currently because of the dehydration and hyponatremia. Hold the Metformin due to renal failure, use sliding scale insulin for coverage of POC glucose checks. As BP improves and if she is able, start PT, to prevent deconditioning. CODE STATUS: FULL CODE. DEEP VENOUS THROMBOSIS PROPHYLAXIS: SCDs. ATTESTATION: The patient is expected to be discharged or transferred to another facility within 96 hours: Yes. cc: Tate Rosas DO TD: 06/17/2019 17:31 MTDD
[2019-06-17] MEDS: SODIUM CHLORIDE FLUSH 0.9% 10 ML SYRINGE IVP SCH (18:15)
[2019-06-17] MEDS: oxyCODONE 5 MG TABLET PO PRN (18:17)
[2019-06-17] MEDS ORDERED: BRIMONIDINE 0.2% OPHTH DROPS 5 ML EACHEYE SCH (21:00)
[2019-06-17] MEDS: GABAPENTIN 300 MG CAPSULE PO SCH (22:28)
[2019-06-17] MEDS: ASCORBIC ACID CHEW 500 MG TABLET PO SCH (22:28)
[2019-06-17] MEDS: oxyCODONE 5 MG TABLET PO SCH (22:28)
[2019-06-17] MEDS: INSULIN ASPART 300 UNIT/3 ML PEN SUBQ SCH (22:29)
[2019-06-17] MEDS: OLANZapine ODT 5 MG TABLET TL SCH (22:29)
[2019-06-17] MEDS: LATANOPROST 0.005% OPHTH DROPS EACHEYE SCH ×2 (22:30→22:39)
[2019-06-17] MEDS: BRIMONIDINE 0.15% OPHTH DROPS 5 ML EACHEYE SCH (22:39)
[2019-06-18] MEDS: ZOLPIDEM 5 MG TABLET PO PRN (00:13)
[2019-06-18] MEDS: clonazePAM 0.5 MG TABLET PO PRN ×2 (00:13→17:43)
[2019-06-18] MEDS: DEXTROSE 5%-0.9% NACL 1,000 ML IV SCH ×3 (00:14→19:44)
[2019-06-18] MEDS: SODIUM CHLORIDE FLUSH 0.9% 10 ML SYRINGE IVP SCH ×3 (00:15→17:02)
[2019-06-18] MEDS: PANTOPRAZOLE 40 MG TABLET PO SCH ×2 (06:17→06:20)
[2019-06-18] MEDS: LEVOTHYROXINE 75 MCG TABLET PO SCH ×2 (06:18→06:20)
[2019-06-18 06:53] LABS: BASOPHILS % (AUTO) 0.2 %; EOSINOPHILS % (AUTO) 0.2 %; HGB - HEMOGLOBIN 10.1 g/dL (12.0-16.0); LYMPHOCYTES # (AUTO) 1.3 10^3/uL (1.5-3.5); LYMPHOCYTES % (AUTO) 21.5 %; MEAN CORPUSCULAR HEMOGLOBIN 29.4 pg (27.0-31.0); MEAN CORPUSCULAR HGB CONC 31.9 g/dL (32.0-36.0); MEAN CORPUSCULAR VOLUME 92.4 fL (81.0-99.0); MEAN PLATELET VOLUME 9.5 fL (7.9-10.8); MONOCYTES # (AUTO) 0.6 10^3/uL (0.0-1.0); MONOCYTES % (AUTO) 8.9 %; NEUTROPHILS # (AUTO) 4.2 10^3/uL (1.5-6.6); NEUTROPHILS % (AUTO) 68.1 %; PLT - PLATELET COUNT 360 10^3/uL (130-450); RED BLOOD COUNT 3.43 10^6/uL (4.20-5.40); RED CELL DISTRIBUTION WIDTH 14.1 % (12.0-15.0); WHITE BLOOD COUNT 6.2 x10^3/uL (4.8-10.8)
[2019-06-18] MEDS ORDERED: LEVOTHYROXINE 75 MCG TABLET PO SCH ×2 (07:00→21:00)
[2019-06-18 07:10] LABS: CALCIUM 8.6 mg/dL (8.5-10.3); CREATININE 1.2 mg/dL (0.4-1.0)
[2019-06-18 07:18] LABS: HB2 TOTAL 9.5 g/dL; HEMOGLOBIN A1C 0.76 g/dL; HEMOGLOBIN A1C % 9.5 % (4.6-6.2)
--- NOTE | 2019-06-18 07:46 | XRAY Report ---
Reason: F/U Covid pos and SOB Procedure Date: 06/18/2019 Accession Number: [id number] / [id number] Procedure: XR - Chest 1 View X-Ray CPT Code: 57858 Final Report FULL RESULT: EXAM: CHEST RADIOGRAPHY EXAM DATE: 06/18/2019 06:05 AM. CLINICAL HISTORY: F/U Covid pos and shortness of breath. COMPARISON: CHEST 1 VIEW 06/17/2019 12:08 PM CHEST 2 VIEW PA/LAT 04/25/2014 12:43 PM. TECHNIQUE: 1 view. FINDINGS: Lungs/Pleura: The patient is mildly rotated. Lung volumes are low. There are new bilateral perihilar and basilar interstitial and airspace opacities. No large pleural effusion or pneumothorax. Mediastinum: Within exam limitations, the cardiomediastinal contour is normal. There is moderate atherosclerotic calcification of the aortic arch. Other: No acute osseous abnormality. IMPRESSION: New interstitial and airspace opacities in the bilateral perihilar and basilar regions. Findings may represent edema, multifocal pneumonia, or atypical infection including viral infection. Subsegmental atelectasis probably also contributes to basilar opacities in this patient with low lung volumes. RADIA
[2019-06-18] MEDS ORDERED: ASPIRIN EC 81 MG TABLET PO SCH (09:00)
--- NOTE | 2019-06-18 09:21 | PROVIDER PROGRESS NOTE ---
Assessment/Plan - Problem List (1) Pneumonia due to 2019 novel coronavirus Assessment/Plan: Yesterday her chest x-ray was completely clear. It was suspected that she might "blossom" and get multiple infiltrates after she got hydrated. Today's chest x-ray shows a multifocal pneumonia. She is covered positive which was known [facility]. Will order hydroxychloroquine. Continue with isolation. (2) HCAP (healthcare-associated pneumonia) Assessment/Plan: She is on empiric antibx Await culture results to focus po antibx (3) Respiratory failure with hypoxia Assessment/Plan: Desaturations were significant at admission, despiute no cough and clear lungs on CXR yesterday. She has no resp distress. Will order her own inhaler to use while here Continue suppl O2, wean as poss (4) COPD without exacerbation Assessment/Plan: Her lung exam is not consistent with an exacerbation: She is not tight or wheezing excessively, has good air movement. We will order her home MDI, in order to not use the nebulizer to try to limit aerosolization since she is COVID positive. We will not use IV steroids since this is not exacerbation and since that could worsen the COVID pneumonia. (5) Transient hypotension Assessment/Plan: BP improved since iv fluids started yesterday. Continue iv hydration. (6) Dehydration Assessment/Plan: Improved mentation and improved labs with iv hydration started aggressively inb ER at presentation. Continue iv hydration. Follow BMP daily. (7) Acute kidney injury Assessment/Plan: Improved creat from 2.1 to 1.2 with iv hydration. Follow BMP daily. (8) Anemia Assessment/Plan: Partly hemodilutional but she has know iron deficiency anemia as well. Continue po Iron replacement. (9) DM type 2 (diabetes mellitus, type 2) Assessment/Plan: A1c is 9.3, indicating poor glu control. Her metformin is on hold due to renal failure. Continue a cc diet and glu checks and ss Insulin coverage. (10) Low back pain Assessment/Plan: Continue pain meds as before admission. (11) Bipolar 1 disorder Assessment/Plan: Continue psych meds as before admission. (12) Hypothyroidism Assessment/Plan: Continue thyroid meds as before admission (13) Constipation Assessment/Plan: Advance hospital bowel protocol - Current Meds Current Meds: Current Medications Generic Name Dose Route Start Last Admin Trade Name Freq PRN Reason Stop Dose Admin Acetaminophen 650 mg 06/17/19 12:54 06/18/19 00:14 Tylenol PO 650 mg Q4HR PRN Administration Pain or Fever > 38C (100.4F) Albuterol/Ipratropium 3 ml 06/17/19 18:00 06/17/19 17:50 Duoneb INH 3 ml RTQID LIDIA Administration Ascorbic Acid 500 mg 06/17/19 21:00 06/17/19 22:28 Vitamin C PO 500 mg BID LIDIA Administration Brimonidine Tartrate 1 drops 06/17/19 21:00 06/17/19 22:39 Alphagan P 0.15% Ophth Drops EACHEYE Not Given BID LIDIA Clonazepam 0.25 mg 06/17/19 17:41 06/18/19 00:13 Klonopin PO 0.25 mg DAILY PRN Administration Anxiety Gabapentin 600 mg 06/17/19 21:00 06/17/19 22:28 Neurontin PO 600 mg BID LIDIA Administration Dextrose/Sodium Chloride 1,000 mls @ 100 mls/hr 06/17/19 13:00 06/18/19 00:14 D5ns IV 100 mls/hr .Q10H LIDIA Administration Insulin Aspart 1 - 5 unit 06/17/19 21:00 06/17/19 22:29 Novolog SUBQ 4 unit 0800,1200,1700,2100 LIDIA Administration Protocol Latanoprost 1 drops 06/17/19 21:00 06/17/19 22:39 Xalatan Ophth Drops EACHEYE Not Given QPM LIDIA Olanzapine 15 mg 06/17/19 21:00 06/17/19 22:29 Zyprexa Odt TL 15 mg QPM LIDIA Administration Oxycodone HCl 5 mg 06/17/19 21:00 06/17/19 22:28 Roxicodone PO 5 mg QPM LIDIA Administration Oxycodone HCl 10 mg 06/17/19 17:43 06/17/19 18:17 Roxicodone PO 10 mg Q6H PRN Administration Severe Pain Sodium Chloride 10 ml 06/17/19 17:00 06/18/19 00:15 Normal Saline Flush 0.9% IVP Not Given 0100,0900,1700 LIDIA Zolpidem Tartrate 5 mg 06/17/19 12:59 06/18/19 00:13 Ambien PO 5 mg QPM PRN Administration Insomnia - Lab Result Fish Bone Diagrams: 06/18/19 06:40 06/18/19 06:40 - Additional Planning My Orders: My Active Orders 06/17/19 12:54 Activity Orders [RC] Q2HR IO [RC] IOSHIFT Initiate Bowel Care Protocol [RC] .protocol Initiate Bronchodialator Idalmis [RC] .PROTOCOL Initiate Flu Vaccine Screening [RC] ONCE Initiate Personal Care Protoco [RC] .protocol Initiate Pneumonia Vaccine Scr [RC] ONCE Oxygen Therapy [RC] Routine Vital Signs [RC] 0800,1600,0000 Acetaminophen [Tylenol] 650 mg PO Q4HR PRN Sodium Chloride Flush 0.9% [Normal Saline Flush 0.9%] 10 ml IVP PRN PRN Condition of Patient [OTHERS] Routine DVT Prophylaxis [OTHERS] Routine 06/17/19 12:57 SCDs [RC] QSHIFT 06/17/19 12:58 Initiate Line Care Protocol [RC] QSHIFT 06/17/19 12:59 Zolpidem [Ambien] 5 mg PO QPM PRN 06/17/19 13:00 Dextrose 5%-0.9% NaCl [D5ns] 1,000 ml IV 100 mls/hr 06/17/19 17:00 Sodium Chloride Flush 0.9% [Normal Saline Flush 0.9%] 10 ml IVP 0100,0900,1700 06/17/19 17:11 Nebulizer/MDI Tx. [RC] .qid 06/17/19 17:41 clonazePAM [KlonoPIN] 0.25 mg PO DAILY PRN 06/17/19 17:43 oxyCODONE [Roxicodone] 10 mg PO Q6H PRN 06/17/19 18:00 Ipratropium/Albuterol [Duoneb] 3 ml INH RTQID 06/17/19 18:20 Blood Glucose Checks - Eating [RC] 0800,1200,1700,2100 Initiate Hypoglycemia Protocol [RC] .protocol 06/17/19 21:00 Ascorbic Acid Chew [Vitamin C] 500 mg PO BID Brimonidine 0.15% Ophth Drops [Alphagan P 0.15% Ophth Drops] 1 drops EACHEYE BID Gabapentin [Neurontin] 600 mg PO BID Insulin Aspart [NovoLOG] 1 - 5 unit SUBQ 0800,1200,1700,2100 Latanoprost 0.005% Ophth Drops [Xalatan Ophth Drops] 1 drops EACHEYE QPM OLANZapine ODT [ZyPREXA ODT] 15 mg TL QPM oxyCODONE [Roxicodone] 5 mg PO QPM 06/17/19 Dinner Soft Mechanical Diet [DIET] 06/18/19 08:00 Ferrous Gluconate [Fergon] 324 mg PO DAILYWM Metoprolol Tartrate [Lopressor] 25 mg PO BIDWM oxyCODONE [Roxicodone] 2.5 mg PO 0800,1200 06/18/19 09:00 Aspirin Chewable [[place] Aspirin] 81 mg PO DAILY Multivitamin [Theragran] 1 tab PO DAILY clonazePAM [KlonoPIN] 0.5 mg PO DAILY lisinopriL [Zestril] 20 mg PO DAILY 06/18/19 21:00 Levothyroxine [Synthroid] 75 mcg PO HS Pantoprazole [Protonix] 40 mg PO HS 06/19/19 05:00 BMP - BASIC METABOLIC PANEL [CHEM] DAILYLAB CBC - COMP BLD CT W/AUTO DIFF [HEME] DAILYLAB 06/20/19 05:00 BMP - BASIC METABOLIC PANEL [CHEM] DAILYLAB CBC - COMP BLD CT W/AUTO DIFF [HEME] DAILYLAB Subjective - Subjective Patient Reports: Other (Reminds me she wants her oxycodone. She has no cough) Nursing Reports: Constipation, Other (Tried a supp for constipation with no relief) Objective Vital Signs: Vital Signs - 24 hr 06/17/19 06/17/19 06/17/19 11:21 11:32 12:13 Temperature 37.5 C Heart Rate 80 84 75 Heart Rate [ Brachial] Heart Rate [ Radial] Respiratory 26 H 23 18 Rate Blood Pressure 97/68 99/52 L 96/50 L Blood Pressure [Left Brachial artery] Blood Pressure [Right Brachial artery] O2 Saturation 98 97 100 06/17/19 06/17/19 06/17/19 12:30 14:00 15:00 Temperature 36.8 C 36.7 C Heart Rate 80 80 Heart Rate [ Brachial] Heart Rate [ 76 Radial] Respiratory 20 20 20 Rate Blood Pressure 118/67 121/54 L Blood Pressure [Left Brachial artery] Blood Pressure 129/74 [Right Brachial artery] O2 Saturation 100 99 96 06/17/19 06/17/19 06/17/19 15:57 17:12 17:52 Temperature 36.9 C 36.9 C Heart Rate 77 78 Heart Rate [ Brachial] Heart Rate [ 77 Radial] Respiratory 17 18 20 Rate Blood Pressure Blood Pressure [Left Brachial artery] Blood Pressure 149/63 H [Right Brachial artery] O2 Saturation 97 97 06/17/19 06/18/19 23:40 08:00 Temperature 36.7 C 36.5 C Heart Rate Heart Rate [ 96 113 H Brachial] Heart Rate [ Radial] Respiratory 16 24 Rate Blood Pressure Blood Pressure 150/65 H [Left Brachial artery] Blood Pressure 172/83 H [Right Brachial artery] O2 Saturation 95 94 Oxygen O2 Source Nasal cannula Oxygen Flow Rate 3 I&O (Last 24 Hrs): Intake and Output Totals x24h 06/16/19 06/17/19 06/18/19 23:59 23:59 23:59 Intake Total 1680 846.667 Output Total 1500 300 Balance 180 546.667 General: Alert, Oriented x3 HEENT: Mucous membr. moist/pink Neck: Supple Neuro: Alert, Non Focal Cardiovascular: Regular rate Respiratory: No respiratory distress, Other (Cement Or Concrete Finishing Supervisor stethascope available for examining breath sounds) Abdomen: Soft, Other (Mildly distended lower quadrants) Extremities: No edema - Results Results: Laboratory Results WBC 6.2 x10^3/uL (4.8-10.8) 06/18/19 06:40 RBC 3.43 10^6/uL (4.20-5.40) L 06/18/19 06:40 Hgb 10.1 g/dL (12.0-16.0) L 06/18/19 06:40 Hct 31.7 % (37.0-47.0) L 06/18/19 06:40 MCV 92.4 fL (81.0-99.0) 06/18/19 06:40 MCH 29.4 pg (27.0-31.0) 06/18/19 06:40 MCHC 31.9 g/dL (32.0-36.0) L 06/18/19 06:40 RDW 14.1 % (12.0-15.0) 06/18/19 06:40 Plt Count 360 10^3/uL (130-450) 06/18/19 06:40 MPV 9.5 fL (7.9-10.8) 06/18/19 06:40 Neut # (Auto) 4.2 10^3/uL (1.5-6.6) 06/18/19 06:40 Lymph # (Auto) 1.3 10^3/uL (1.5-3.5) L 06/18/19 06:40 [place] # (Auto) 0.6 10^3/uL (0.0-1.0) 06/18/19 06:40 Eos # (Auto) 0.0 10^3/uL (0.0-0.7) 06/18/19 06:40 Baso # (Auto) 0.0 10^3/uL (0.0-0.1) 06/18/19 06:40 Absolute Nucleated RBC 0.00 x10^3/uL 06/18/19 06:40 Nucleated RBC % 0.0 /100WBC 06/18/19 06:40 Sodium 135 mmol/L (135-145) 06/18/19 06:40 Potassium 4.9 mmol/L (3.5-5.0) 06/18/19 06:40 Chloride 105 mmol/L (101-111) 06/18/19 06:40 Carbon Dioxide 22 mmol/L (21-32) 06/18/19 06:40 Anion Gap 8.0 (6-13) 06/18/19 06:40 BUN 29 mg/dL (6-20) H 06/18/19 06:40 Creatinine 1.2 mg/dL (0.4-1.0) H 06/18/19 06:40 Estimated GFR (MDRD) 44 (>89) L 06/18/19 06:40 Glucose 281 mg/dL (70-100) H 06/18/19 06:40 Glycated Hemoglobin 9.5 % (4.6-6.2) H 06/18/19 06:40 Estim Average Glucose 226 (70-100) H 06/18/19 06:40 Lactic Acid 0.8 mmol/L (0.5-2.2) 06/17/19 11:29 Calcium 8.6 mg/dL (8.5-10.3) 06/18/19 06:40 Magnesium 2.0 mg/dL (1.7-2.8) 06/18/19 06:40 Total Bilirubin 0.3 mg/dL (0.2-1.0) 06/17/19 11:29 AST 33 IU/L (10-42) 06/17/19 11:29 ALT 29 IU/L (10-60) 06/17/19 11:29 Alkaline Phosphatase 57 IU/L (42-121) 06/17/19 11:29 B-Natriuretic Peptide 47 pg/mL (5-100) 06/17/19 11:29 Total Protein 6.6 g/dL (6.7-8.2) L 06/17/19 11:29 Albumin 3.0 g/dL (3.2-5.5) L 06/17/19 11:29 Globulin 3.6 g/dL (2.1-4.2) 06/17/19 11:29 Albumin/Globulin Ratio 0.8 (1.0-2.2) L 06/17/19 11:29 Lipase 53 U/L (22-51) H 06/17/19 11:29 Urine Color YELLOW 06/17/19 15:20 Urine Clarity CLEAR (CLEAR) 06/17/19 15:20 Urine pH 5.5 PH (5.0-7.5) 06/17/19 15:20 Ur Specific [place] 1.010 (1.002-1.030) 06/17/19 15:20 Urine Protein TRACE mg/dL (NEGATIVE) 06/17/19 15:20 Urine Glucose (UA) NEGATIVE mg/dL (NEGATIVE) 06/17/19 15:20 Urine Ketones NEGATIVE mg/dL (NEGATIVE) 06/17/19 15:20 Urine Occult Blood NEGATIVE (NEGATIVE) 06/17/19 15:20 Urine Nitrite NEGATIVE (NEGATIVE) 06/17/19 15:20 Urine Bilirubin NEGATIVE (NEGATIVE) 06/17/19 15:20 Urine Urobilinogen 0.2 (NORMAL) E.U./dL (NORMAL) 06/17/19 15:20 Ur Leukocyte Esterase NEGATIVE (NEGATIVE) 06/17/19 15:20 Ur Microscopic Review NOT INDICATED 06/17/19 15:20 Urine Culture Comments NOT INDICATED 06/17/19 15:20
[2019-06-18] MEDS: IPRATROPIUM/ALBUTEROL 3 ML NEB INH SCH (10:07)
[2019-06-18] MEDS: FERROUS GLUCONATE 324 MG TABLET PO SCH (10:32)
[2019-06-18] MEDS: lisinopriL 20 MG TABLET PO SCH (10:33)
[2019-06-18] MEDS: MULTIVITAMIN TABLET PO SCH (10:33)
[2019-06-18] MEDS: GABAPENTIN 300 MG CAPSULE PO SCH ×2 (10:33→20:46)
[2019-06-18] MEDS: ASCORBIC ACID CHEW 500 MG TABLET PO SCH ×2 (10:33→20:47)
[2019-06-18] MEDS: oxyCODONE 5 MG TABLET PO SCH ×3 (10:34→20:45)
[2019-06-18] MEDS: INSULIN ASPART 300 UNIT/3 ML PEN SUBQ SCH ×5 (10:34→20:55)
[2019-06-18] MEDS: ASPIRIN CHEW 81 MG TABLET PO SCH (10:34)
[2019-06-18] MEDS: METOPROLOL TARTRATE 25 MG TABLET PO SCH ×2 (10:37→17:04)
[2019-06-18] MEDS: BRIMONIDINE 0.15% OPHTH DROPS 5 ML EACHEYE SCH ×3 (10:38→20:48)
[2019-06-18] MEDS: clonazePAM 0.5 MG TABLET PO SCH (10:51)
[2019-06-18] MEDS: oxyCODONE 5 MG TABLET PO PRN (13:58)
[2019-06-18] MEDS: OLANZapine ODT 5 MG TABLET TL SCH (20:43)
[2019-06-18] MEDS: LATANOPROST 0.005% OPHTH DROPS EACHEYE SCH (20:53)
[2019-06-18] MEDS ORDERED: PANTOPRAZOLE 40 MG TABLET PO SCH (21:00)
[2019-06-18] MEDS: HYDROXYCHLOROQUINE 200 MG TABLET PO SCH (22:21)
[2019-06-18] MEDS ORDERED: METOPROLOL 5 MG/5 ML VIAL IVP STA (22:43)
[2019-06-18] MEDS: SODIUM CHLORIDE 0.9% 1,000 ML IV SCH (23:09)
[2019-06-18] MEDS: ALBUTEROL INH SCH (23:56)
[2019-06-18] MEDS: IPRATROPIUM INH SCH (23:56)
[2019-06-19] MEDS: clonazePAM 0.5 MG TABLET PO PRN (00:15)
[2019-06-19] MEDS: ZOLPIDEM 5 MG TABLET PO PRN (00:15)
[2019-06-19] MEDS: SODIUM CHLORIDE FLUSH 0.9% 10 ML SYRINGE IVP SCH ×3 (00:16→17:12)
[2019-06-19 06:24] LABS: BASOPHILS # (AUTO) 0.1 10^3/uL (0.0-0.1); BASOPHILS % (AUTO) 0.4 %; HGB - HEMOGLOBIN 11.7 g/dL (12.0-16.0); LYMPHOCYTES # (AUTO) 0.9 10^3/uL (1.5-3.5); LYMPHOCYTES % (AUTO) 6.2 %; MEAN CORPUSCULAR HEMOGLOBIN 29.4 pg (27.0-31.0); MEAN CORPUSCULAR HGB CONC 32.6 g/dL (32.0-36.0); MEAN CORPUSCULAR VOLUME 90.2 fL (81.0-99.0); MEAN PLATELET VOLUME 9.1 fL (7.9-10.8); MONOCYTES # (AUTO) 0.9 10^3/uL (0.0-1.0); MONOCYTES % (AUTO) 6.7 %; NEUTROPHILS # (AUTO) 11.6 10^3/uL (1.5-6.6); NEUTROPHILS % (AUTO) 85.1 %; PLT - PLATELET COUNT 445 10^3/uL (130-450); RED BLOOD COUNT 3.98 10^6/uL (4.20-5.40); RED CELL DISTRIBUTION WIDTH 14.1 % (12.0-15.0); WHITE BLOOD COUNT 13.6 x10^3/uL (4.8-10.8)
[2019-06-19 06:35] LABS: CALCIUM 8.5 mg/dL (8.5-10.3); CREATININE 1.5 mg/dL (0.4-1.0)
[2019-06-19] MEDS: hydrALAZINE INJ 20 MG/ML VIAL IVP PRN (07:39)
[2019-06-19] MEDS: SODIUM CHLORIDE 0.9% 1,000 ML IV SCH (07:40)
[2019-06-19] MEDS: oxyCODONE 5 MG TABLET PO SCH ×2 (08:28→12:15)
[2019-06-19] MEDS: ASCORBIC ACID CHEW 500 MG TABLET PO SCH (08:28)
[2019-06-19] MEDS: ASPIRIN CHEW 81 MG TABLET PO SCH (08:28)
[2019-06-19] MEDS: MULTIVITAMIN TABLET PO SCH (08:29)
[2019-06-19] MEDS: lisinopriL 20 MG TABLET PO SCH (08:29)
[2019-06-19] MEDS: FERROUS GLUCONATE 324 MG TABLET PO SCH (08:29)
[2019-06-19] MEDS: METOPROLOL TARTRATE 25 MG TABLET PO SCH (08:29)
[2019-06-19] MEDS: clonazePAM 0.5 MG TABLET PO SCH (08:29)
[2019-06-19] MEDS: GABAPENTIN 300 MG CAPSULE PO SCH (08:29)
[2019-06-19] MEDS: BRIMONIDINE 0.15% OPHTH DROPS 5 ML EACHEYE SCH ×2 (08:30→21:58)
[2019-06-19] MEDS: INSULIN ASPART 300 UNIT/3 ML PEN SUBQ SCH ×2 (08:30→12:05)
[2019-06-19] MEDS: HYDROXYCHLOROQUINE 200 MG TABLET PO SCH (08:33)
[2019-06-19] MEDS ORDERED: polyethylene glycoL 3350 17 GM PACKET PO SCH (09:00)
[2019-06-19] MEDS ORDERED: DOCUSATE SODIUM 250 MG CAPSULE PO SCH (09:00)
--- NOTE | 2019-06-19 12:53 | PROVIDER PROGRESS NOTE ---
Assessment/Plan - Problem List (1) Shock Assessment/Plan: She got worse this afternoon: less communicative, then skin mottled and BP dropped to 78 systolic. Suspect septic shock. Will check Lactic Acid level and give saline bolus, move to ICU, start Levophed. Check troponin as well for poss Cardiogenic shock. Obtain EKG. Albarado. CVP. Possible intubation and vent management (as per POLST which was obtained from [facility], was signed 2 days ago). (2) Abnormal EKG Assessment/Plan: Despite her hypotension, EKG shows sinus rhythm at a rate of 78, prolonged QT interval, new deeply inverted T waves in leads II, III, aVF and V2 through V6. Troponin level was ordered but the aoc operations intelligence chief could not get any blood despite 3 IV sticks. Will check her troponins when the CVP line is in for access. I suspect she has diffuse ischemia, possibly secondary to hypoperfusion from her shock. The It Infrastructure Engineer reached the patient's sister who is listed as the next of kin in the chart. The sister confirmed that currently she is a full code, wants aggressive treatment, intubation and all aggressive medical management should be undertaken. There is a [facility] Ethics committee who will determine if this patient meets criteria for being on the ventilator. I will reach out to the coordinating nurse, Candice Ybarra, and to the CNO, Vandana Ryan, to get the Ethics committee input DESHAWN. (3) Pneumonia due to 2019 novel coronavirus Assessment/Plan: Hydroxychloroquin ordered. She appears to be worsening this afternoon and may be devloping ARDS with septic shock. (4) HCAP (healthcare-associated pneumonia) Assessment/Plan: Continue empiric iv antibx. (5) Respiratory failure with hypoxia Assessment/Plan: Will check BNP, as the iv hydration may have been excessive>> BNP 1300. Stop iv NS hydration. May need Lasix (6) Acute kidney injury Assessment/Plan: The creat was improving after 1st day hydration, from 2.1 to 1.2. But today creat imcreased to 1.5 and sodium has dropped. She is >2L pos in fluid balance and has an old Hx of diastolic dysfunction by Echo done about 5 years ago here. Will check BNP, as the iv hydration may have been excessive. Stop iv NS hydration. May need Lasix. Will check urine electrolytes and a spot urine protein. (7) COPD without exacerbation Assessment/Plan: No wheezing No nebs ordered, her own MDI may be used, unless intubation needed. (8) Dehydration Assessment/Plan: Resolved with >2L (+) volume status since admission (9) Anemia Assessment/Plan: Iron replacement po was continued at admission (10) DM type 2 (diabetes mellitus, type 2) Assessment/Plan: cc diet and ss Insulin. Will chnage to ss Insulin for NPO if moved to ICU. (11) Low back pain Assessment/Plan: Oxycodone was her management, on hold due to low BPs. (12) Bipolar 1 disorder Assessment/Plan: her home meds had been restarted. Today's anxiety may be air hunger or due to being in "isolation". Will order prn Ativan, small dose (13) Hypothyroidism Assessment/Plan: Her home thyroid meds ordered here (14) Constipation Assessment/Plan: Continue bowel protocols - Current Meds Current Meds: Current Medications Generic Name Dose Route Start Last Admin Trade Name Rudi PRN Reason Stop Dose Admin Acetaminophen 650 mg 06/17/19 12:54 06/18/19 00:14 Tylenol PO 650 mg Q4HR PRN Administration Pain or Fever > 38C (100.4F) Ascorbic Acid 500 mg 06/17/19 21:00 06/19/19 08:28 Vitamin C PO 500 mg BID LIDIA Administration Aspirin 81 mg 06/18/19 09:00 06/19/19 08:28 [facility] Aspirin PO 81 mg DAILY LIDIA Administration Brimonidine Tartrate 1 drops 06/17/19 21:00 06/19/19 08:30 Alphagan P 0.15% Ophth Drops EACHEYE 1 drops BID LIDIA Administration Clonazepam 0.25 mg 06/17/19 17:41 06/19/19 00:15 Klonopin PO 0.25 mg DAILY PRN Administration Anxiety Clonazepam 0.5 mg 06/18/19 09:00 06/19/19 08:29 Klonopin PO 0.5 mg DAILY LIDIA Administration Docusate Sodium 250 - 500 mg 06/19/19 09:00 06/19/19 08:28 Colace 250mg Capsule PO 250 mg DAILY LIDIA Administration Ferrous Gluconate 324 mg 06/18/19 08:00 06/19/19 08:29 Fergon PO 324 mg DAILYWM LIDIA Administration Gabapentin 600 mg 06/17/19 21:00 06/19/19 08:29 Neurontin PO 600 mg BID LIDIA Administration Hydralazine HCl 10 mg 06/19/19 06:43 06/19/19 07:39 Apresoline Inj IVP 10 mg Q4H PRN Administration PER PHYSICIAN ORDER Latanoprost 1 drops 06/17/19 21:00 06/18/19 20:53 Xalatan Ophth Drops EACHEYE 1 drops QPM LIDIA Administration Levothyroxine Sodium 75 mcg 06/18/19 21:00 06/18/19 20:45 Synthroid PO 75 mcg HS LIDIA Administration Multivitamins 1 tab 06/18/19 09:00 06/19/19 08:29 Theragran PO 1 tab DAILY LIDIA Administration (Ipratropium/ 1 puffs 06/18/19 09:45 06/18/19 23:56 Albuterol [Combivent INH Not Given Respimat] 1 Puffs) QID LIDIA Olanzapine 15 mg 06/17/19 21:00 06/18/19 20:43 Zyprexa Odt TL 15 mg QPM LIDIA Administration Oxycodone HCl 2.5 mg 06/18/19 08:00 06/19/19 12:15 Roxicodone PO Not Given 0800,1200 LIDIA Oxycodone HCl 5 mg 06/17/19 21:00 06/18/19 20:45 Roxicodone PO 5 mg QPM LIDIA Administration Oxycodone HCl 10 mg 06/17/19 17:43 06/18/19 13:58 Roxicodone PO 10 mg Q6H PRN Administration Severe Pain Pantoprazole Sodium 40 mg 06/18/19 21:00 06/18/19 20:47 Protonix PO 40 mg HS LIDIA Administration Polyethylene Glycol 17 gm 06/19/19 09:00 06/19/19 08:26 Miralax PO 17 gm DAILY LIDIA Administration Sodium Chloride 10 ml 06/17/19 17:00 06/19/19 08:39 Normal Saline Flush 0.9% IVP Not Given 0100,0900,1700 LIDIA Zolpidem Tartrate 5 mg 06/17/19 12:59 06/19/19 00:15 Ambien PO 5 mg QPM PRN Administration Insomnia - Lab Result Fish Bone Diagrams: 06/19/19 06:15 06/19/19 06:15 - EKG Results EKG Interpreted Independently: Yes EKG Comparison: Changed from prior EKG EKG Findings: Sinus rhythm, rate 78, prolonged QT interval, deeply symmetrically inverted T waves in leads II, III, aVF and V2 through V6 consistent with diffuse global ischemia. - Additional Planning My Orders: My Active Orders 06/18/19 21:00 Levothyroxine [Synthroid] 75 mcg PO HS Pantoprazole [Protonix] 40 mg PO HS 06/19/19 05:00 BNP - B-NATRIURETIC PEPTIDE [IAI] Stat 06/19/19 09:00 Docusate Sodium 250Mg Capsule [Colace 250Mg Capsule] 250 - 500 mg PO DAILY polyethylene glycoL 3350 [Miralax] 17 gm PO DAILY 06/19/19 17:00 Insulin Aspart [NovoLOG] 3 - 11 unit SUBQ 0800,1200,1700,2100 hydrALAZINE [Apresoline] 25 mg PO TIDWM 06/20/19 05:00 BMP - BASIC METABOLIC PANEL [CHEM] DAILYLAB BNP - B-NATRIURETIC PEPTIDE [IAI] DAILYLAB CBC - COMP BLD CT W/AUTO DIFF [HEME] DAILYLAB 06/20/19 09:00 Metoprolol Succinate [Toprol Xl] 25 mg PO DAILY Subjective - Subjective Patient Reports: Other (Obtunded, grimaces to sternal rub, not answering to her name.) Nursing Reports: Other (BP was very elevated and she seemed very anxious, extra iv Lopressor and BP meds were given early) Objective Vital Signs: Vital Signs - 24 hr 06/18/19 06/18/19 06/18/19 16:00 17:04 20:38 Temperature 36.8 C Heart Rate [ 101 H Brachial] Heart Rate [ Radial] Respiratory 20 Rate Blood Pressure 188/88 H Blood Pressure [Left Brachial artery] Blood Pressure 188/88 H 184/88 H [Right Brachial artery] O2 Saturation 94 06/18/19 06/18/19 06/18/19 21:26 22:19 23:10 Temperature 36.4 C L Heart Rate [ 101 H Brachial] Heart Rate [ 101 H Radial] Respiratory 22 Rate Blood Pressure Blood Pressure 175/88 H [Left Brachial artery] Blood Pressure 184/88 H 170/90 H [Right Brachial artery] O2 Saturation 92 0306/18/19 06/18/19 23:11 23:15 23:20 Temperature Heart Rate [ Brachial] Heart Rate [ 97 91 Radial] Respiratory Rate Blood Pressure 175/88 H Blood Pressure 169/85 H 166/84 H [Left Brachial artery] Blood Pressure [Right Brachial artery] O2 Saturation 06/19/19 06/19/19 06/19/19 00:31 05:00 07:39 Temperature 36.4 C L 36.8 C Heart Rate [ 98 102 H Brachial] Heart Rate [ Radial] Respiratory 20 16 Rate Blood Pressure 165/90 H Blood Pressure 154/88 H 165/90 H [Left Brachial artery] Blood Pressure [Right Brachial artery] O2 Saturation 96 94 06/19/19 06/19/19 06/19/19 07:44 07:55 08:00 Temperature 37.0 C Heart Rate [ 99 101 H 99 Brachial] Heart Rate [ Radial] Respiratory 30 H Rate Blood Pressure Blood Pressure [Left Brachial artery] Blood Pressure 173/86 H 151/76 H 149/67 H [Right Brachial artery] O2 Saturation 95 06/19/19 06/19/19 06/19/19 08:05 08:09 08:10 Temperature Heart Rate [ 98 104 H Brachial] Heart Rate [ Radial] Respiratory Rate Blood Pressure 149/87 H Blood Pressure [Left Brachial artery] Blood Pressure 151/67 H 140/70 H [Right Brachial artery] O2 Saturation 06/19/19 06/19/19 06/19/19 08:15 08:20 08:25 Temperature Heart Rate [ 101 H 98 98 Brachial] Heart Rate [ Radial] Respiratory Rate Blood Pressure Blood Pressure [Left Brachial artery] Blood Pressure 150/72 H 148/73 H 149/87 H [Right Brachial artery] O2 Saturation 06/19/19 06/19/19 08:29 08:40 Temperature Heart Rate [ 94 Brachial] Heart Rate [ Radial] Respiratory 24 Rate Blood Pressure 149/87 H Blood Pressure [Left Brachial artery] Blood Pressure 153/74 H [Right Brachial artery] O2 Saturation Oxygen O2 Source Nasal cannula Oxygen Flow Rate 3 I&O (Last 24 Hrs): Intake and Output Totals x24h 06/17/19 06/18/19 06/19/19 23:59 23:59 23:59 Intake Total 1680 3776.667 1451.667 Output Total 1500 850 300 Balance 180 2926.667 1151.667 General: Other (Obtunded, pale, skin of legs is mottling.) HEENT: Mucous membr. moist/pink Neuro: Other (Obtunded, grimaces to pain, inimal spintaneous movement.) Cardiovascular: No murmurs Respiratory: Other (Tachypneic) Abdomen: Soft Extremities: No edema Skin: No rashes (Mottled skin of legs, warm and dry.) - Results Results: Laboratory Results WBC 13.6 x10^3/uL (4.8-10.8) H 06/19/19 06:15 RBC 3.98 10^6/uL (4.20-5.40) L 06/19/19 06:15 Hgb 11.7 g/dL (12.0-16.0) L 06/19/19 06:15 Hct 35.9 % (37.0-47.0) L 06/19/19 06:15 MCV 90.2 fL (81.0-99.0) 06/19/19 06:15 MCH 29.4 pg (27.0-31.0) 06/19/19 06:15 MCHC 32.6 g/dL (32.0-36.0) 06/19/19 06:15 RDW 14.1 % (12.0-15.0) 06/19/19 06:15 Plt Count 445 10^3/uL (130-450) 06/19/19 06:15 MPV 9.1 fL (7.9-10.8) 06/19/19 06:15 Neut # (Auto) 11.6 10^3/uL (1.5-6.6) H 06/19/19 06:15 Lymph # (Auto) 0.9 10^3/uL (1.5-3.5) L 06/19/19 06:15 [place] # (Auto) 0.9 10^3/uL (0.0-1.0) 06/19/19 06:15 Eos # (Auto) 0.0 10^3/uL (0.0-0.7) 06/19/19 06:15 Baso # (Auto) 0.1 10^3/uL (0.0-0.1) 06/19/19 06:15 Absolute Nucleated RBC 0.00 x10^3/uL 06/19/19 06:15 Nucleated RBC % 0.0 /100WBC 06/19/19 06:15 Sodium 134 mmol/L (135-145) L 06/19/19 06:15 Potassium 5.2 mmol/L (3.5-5.0) H 06/19/19 06:15 Chloride 110 mmol/L (101-111) 06/19/19 06:15 Carbon Dioxide 16 mmol/L (21-32) L 06/19/19 06:15 Anion Gap 8.0 (6-13) 06/19/19 06:15 BUN 28 mg/dL (6-20) H 06/19/19 06:15 Creatinine 1.5 mg/dL (0.4-1.0) H 06/19/19 06:15 Estimated GFR (MDRD) 34 (>89) L 06/19/19 06:15 Glucose 274 mg/dL (70-100) H 06/19/19 06:15 POC Whole Bld Glucose 321 mg/dL (70 - 100) H 06/19/19 11:57 Glycated Hemoglobin 9.5 % (4.6-6.2) H 06/18/19 06:40 Estim Average Glucose 226 (70-100) H 06/18/19 06:40 Lactic Acid 0.8 mmol/L (0.5-2.2) 06/17/19 11:29 Calcium 8.5 mg/dL (8.5-10.3) 06/19/19 06:15 Magnesium 2.0 mg/dL (1.7-2.8) 06/18/19 06:40 Total Bilirubin 0.3 mg/dL (0.2-1.0) 06/17/19 11:29 AST 33 IU/L (10-42) 06/17/19 11:29 ALT 29 IU/L (10-60) 06/17/19 11:29 Alkaline Phosphatase 57 IU/L (42-121) 06/17/19 11:29 B-Natriuretic Peptide 47 pg/mL (5-100) 06/17/19 11:29 Total Protein 6.6 g/dL (6.7-8.2) L 06/17/19 11:29 Albumin 3.0 g/dL (3.2-5.5) L 06/17/19 11:29 Globulin 3.6 g/dL (2.1-4.2) 06/17/19 11:29 Albumin/Globulin Ratio 0.8 (1.0-2.2) L 06/17/19 11:29 Lipase 53 U/L (22-51) H 06/17/19 11:29 Urine Color YELLOW 06/17/19 15:20 Urine Clarity CLEAR (CLEAR) 06/17/19 15:20 Urine pH 5.5 PH (5.0-7.5) 06/17/19 15:20 Ur Specific [place] 1.010 (1.002-1.030) 06/17/19 15:20 Urine Protein TRACE mg/dL (NEGATIVE) 06/17/19 15:20 Urine Glucose (UA) NEGATIVE mg/dL (NEGATIVE) 06/17/19 15:20 Urine Ketones NEGATIVE mg/dL (NEGATIVE) 06/17/19 15:20 Urine Occult Blood NEGATIVE (NEGATIVE) 06/17/19 15:20 Urine Nitrite NEGATIVE (NEGATIVE) 06/17/19 15:20 Urine Bilirubin NEGATIVE (NEGATIVE) 06/17/19 15:20 Urine Urobilinogen 0.2 (NORMAL) E.U./dL (NORMAL) 06/17/19 15:20 Ur Leukocyte Esterase NEGATIVE (NEGATIVE) 06/17/19 15:20 Ur Microscopic Review NOT INDICATED 06/17/19 15:20 Urine Culture Comments NOT INDICATED 06/17/19 15:20
[2019-06-19 14:23] LABS: BILIRUBIN,URINE NEGATIVE (NEGATIVE); GLUCOSE, URINE (UA) 250 mg/dL (NEGATIVE); KETONES,URINE (UA) NEGATIVE (NEGATIVE); LEUKOCYTE ESTERASE, URINE NEGATIVE (NEGATIVE); NITRITE,URINE NEGATIVE (NEGATIVE); OCCULT BLOOD,URINE LARGE (NEGATIVE); PROTEIN,URINE TRACE mg/dL (NEGATIVE); UROBILINOGEN,URINE 0.2 (NORMAL) E.U./dL (NORMAL)
[2019-06-19 14:24] LABS: CLARITY,URINE HAZY (CLEAR)
[2019-06-19] MEDS ORDERED: MORPHINE 2 MG/ML CARPUJECT IVP PRN (14:28)
[2019-06-19] MEDS ORDERED: FUROSEMIDE 20 MG/2 ML VIAL IVP SCH (14:29)
[2019-06-19 14:34] LABS: CREATININE,URINE 33.9 mg/dL
[2019-06-19] MEDS ORDERED: SODIUM CHLORIDE 0.9% 500 ML IV ONE (14:43)
[2019-06-19] MEDS: IPRATROPIUM INH SCH ×2 (16:04→16:26)
[2019-06-19] MEDS: ALBUTEROL INH SCH ×2 (16:04→16:26)
--- NOTE | 2019-06-19 16:50 | OPERATIVE REPORT ---
Operative Report - General Admit Date: 06/17/19 Pre-Op Diagnosis: COVID positive with hypotension requiring pressors Procedure Performed: Central Venous Catheter Placement Post Op Diagnosis: same - Procedure Note Primary Surgeon: Irma Irby MD Anesthesia Technique: Local Indications: 73 yo female who is COVID positive who is clinically deteriorating and needs pressors support and lab has been unable to draw blood. The hospitalist requested placement for c-line. Consent was obtained by the hospitalist from the family and confirmed. - Other Other Information/Narrative: Informed consent was obtained by the hospitalist from the family for emergent c- line placement. The area of the left subclavian was then prepped and drapped in a sterile. A formal time out was held according to hospital regulations. Local was then infused into the area and along the subclavian. Access into the subclavian was then obtained on first attempt in the usual fashion. The wire passed without issue and the needle was removed. Small skin incision was then made and dilator was inserted over the wire without difficulty. The triple lumen catheter was then inserted over the wire and the wire was removed. The cap was placed and the three lumens were flashed and flushed without difficulty. The catheter was then suture with 3.0 silk and a sterile dressing placed. The drapes were removed. All sponge, sharp and instrument counts were correct. A post procedure CXR was ordered. The patient tolerated the procedure without difficulty.
[2019-06-19] MEDS ORDERED: INSULIN ASPART 300 UNIT/3 ML PEN SUBQ SCH (17:00)
[2019-06-19] MEDS ORDERED: hydrALAZINE 25 MG TABLET PO SCH (17:00)
[2019-06-19] MEDS ORDERED: MIDAZOLAM DRIP 50 MG/100 ML BAG IV SCH (18:00)
[2019-06-19] MEDS ORDERED: DEXMEDETOMIDINE 400 MCG/100 ML 100 ML IV SCH (18:00)
[2019-06-19] MEDS ORDERED: LIDOCAINE PATCH 5% TOP PRN (18:22)
[2019-06-19] MEDS ORDERED: METOPROLOL 5 MG/5 ML VIAL IVP PRN (18:34)
--- NOTE | 2019-06-19 19:36 | CT Report ---
Reason: New unrespinsiveness Procedure Date: 06/19/2019 Accession Number: [id number] / [id number] Procedure: CT - Head W/O Stroke Protocol CPT Code: Addended Final Report FULL RESULT: EXAM: CT HEAD EXAM DATE: 06/19/2019 06:55 PM. CLINICAL HISTORY: 73-year-old female. New unresponsiveness. COMPARISON: None. TECHNIQUE: Multiaxial CT images were obtained from the foramen magnum to the vertex. Reformats: Sagittal and coronal. IV contrast: None. In accordance with CT protocol optimization, one or more of the following dose reduction techniques were utilized for this exam: automated exposure control, adjustment of mA and/or KV based on patient size, or use of iterative reconstructive technique. FINDINGS: Parenchyma: No intraparenchymal hemorrhage. No evidence of mass, midline shift, or CT findings of acute infarction. Miles-white differentiation is distinct. Diffuse chronic microangiopathic white matter changes are evident. Extraaxial Spaces: Normal for age. No subdural or epidural collections identified. Ventricles: The ventricles and cortical sulci are enlarged, consistent with age-related tissue loss. Sinuses and orbits: Imaged paranasal sinuses, orbits, and mastoids show no significant abnormality. Bones: No evidence of fracture or calvarial defect. Other: Densely calcified 17 x 17 mm extra-axial lesion along anterior falx, nonspecific for densely calcified meningioma versus prominent parafalcine calcification. Moderate atherosclerosis intracranial arteries. IMPRESSION: 1. Generalized age-related cortical atrophic changes without evidence of acute intracranial abnormality. ASPECTS 10. 2. Densely calcified 17 x 17 mm extra-axial lesion along anterior falx, nonspecific for densely calcified meningioma versus prominent parafalcine calcification. RADIA The critical test notification system was initiated by Dr. Julia Barahona at 07:33 PM on 06/19/2019. ADDENDUM: 06/19/19 19:42 The above critical test findings were discussed with Dr. Yeung by Dr. Julia Barahona at 07:42 PM on 06/19/2019.
[2019-06-19] MEDS ORDERED: HYDROXYCHLOROQUINE 200 MG TABLET PO SCH (21:00)
[2019-06-19] MEDS ORDERED: AZITHROMYCIN 250 MG TABLET PO SCH (21:04)
[2019-06-19] MEDS: LATANOPROST 0.005% OPHTH DROPS EACHEYE SCH (21:57)
--- NOTE | 2019-06-20 00:32 | XRAY Report ---
Reason: ng tube placement Procedure Date: 06/19/2019 Accession Number: [id number] / [id number] Procedure: XR - Chest for Line Placement CPT Code: Final Report FULL RESULT: EXAM: CHEST RADIOGRAPHY EXAM DATE: 06/19/2019 11:53 PM CLINICAL HISTORY: NG tube placement. COMPARISON: CHEST FOR LINE PLACEMENT 06/19/2019 4:45 PM CHEST 1 VIEW 06/18/2019 5:21 AM. TECHNIQUE: 1 view. FINDINGS: Lungs/Pleura: Similar appearance of the multifocal subsegmental opacities in both lungs. No pleural effusion. No pneumothorax. Mediastinum: Within exam limitations, the cardiomediastinal contour is normal. Other: None. IMPRESSION: Enteric tube courses below the diaphragm into the region of the stomach with tip off the confines of the film. Left subclavian catheter with tip located at the mid right atrium. Similar appearance of the multifocal subsegmental airspace opacities in both lungs. RADIA
[2019-06-20] MEDS: HYDROXYCHLOROQUINE 200 MG TABLET NG SCH ×3 (01:03→20:47)
[2019-06-20] MEDS: INSULIN REGULAR HUMAN 300 UNIT/3 ML VIAL SUBQ SCH ×3 (01:04→06:48)
[2019-06-20] MEDS: SODIUM CHLORIDE FLUSH 0.9% 10 ML SYRINGE IVP PRN ×5 (05:18→13:22)
[2019-06-20] MEDS: SODIUM CHLORIDE FLUSH 0.9% 10 ML SYRINGE IVP SCH ×4 (05:18→23:43)
[2019-06-20 06:18] LABS: BASOPHILS % (AUTO) 0.1 %; HGB - HEMOGLOBIN 9.1 g/dL (12.0-16.0); LYMPHOCYTES # (AUTO) 1.1 10^3/uL (1.5-3.5); LYMPHOCYTES % (AUTO) 7.2 %; MEAN CORPUSCULAR HEMOGLOBIN 29.8 pg (27.0-31.0); MEAN CORPUSCULAR HGB CONC 32.9 g/dL (32.0-36.0); MEAN CORPUSCULAR VOLUME 90.8 fL (81.0-99.0); MEAN PLATELET VOLUME 9.5 fL (7.9-10.8); MONOCYTES # (AUTO) 1.2 10^3/uL (0.0-1.0); MONOCYTES % (AUTO) 7.8 %; NEUTROPHILS # (AUTO) 12.2 10^3/uL (1.5-6.6); NEUTROPHILS % (AUTO) 83.3 %; PLT - PLATELET COUNT 287 10^3/uL (130-450); RED BLOOD COUNT 3.05 10^6/uL (4.20-5.40); RED CELL DISTRIBUTION WIDTH 14.6 % (12.0-15.0); WHITE BLOOD COUNT 14.7 x10^3/uL (4.8-10.8)
[2019-06-20 06:28] LABS: CREATININE 1.3 mg/dL (0.4-1.0)
[2019-06-20] MEDS ORDERED: PHENOL THROAT SPRAY 177 ML MM PRN (08:12)
[2019-06-20] MEDS ORDERED: SODIUM CHLORIDE 0.9% 500 ML IV PRN (08:13)
[2019-06-20] MEDS: BRIMONIDINE 0.15% OPHTH DROPS 5 ML EACHEYE SCH ×2 (08:40→21:00)
[2019-06-20] MEDS ORDERED: METOPROLOL SUCCINATE 25 MG TABLET PO SCH (09:00)
[2019-06-20] MEDS ORDERED: MORPHINE 2 MG/ML CARPUJECT IVP PRN (10:54)
[2019-06-20] MEDS ORDERED: AZITHROMYCIN INJ 500 MG in SODIUM CHLORIDE 0.9% 250 ML IV SCH (11:00)
[2019-06-20] MEDS: ACETAMINOPHEN 325 MG TABLET PO PRN ×2 (11:36→16:02)
--- NOTE | 2019-06-20 12:12 | XRAY Report ---
Reason: central line placement Procedure Date: 06/19/2019 Accession Number: [id number] / [id number] Procedure: XR - Chest for Line Placement CPT Code: Final Report FULL RESULT: EXAM: CHEST RADIOGRAPHY EXAM DATE: 06/19/2019 04:45 PM. CLINICAL HISTORY: Central line placement. COMPARISON: None. TECHNIQUE: 1 view. FINDINGS: Lungs/Pleura: Normal in the supine view. No focal consolidation or pleural Mediastinum: Within exam limitations, the cardiomediastinal contour is normal. Other: Right-sided CVC terminates in the right atrium. IMPRESSION: CVC terminates in the right atrium. RADIA
[2019-06-20] MEDS: INSULIN ASPART 300 UNIT/3 ML PEN SUBQ SCH ×3 (12:37→21:01)
[2019-06-20] MEDS: INSULIN GLARGINE 300 UNIT/3 ML PEN SUBQ SCH ×2 (12:40→21:02)
[2019-06-20] MEDS: DOXYCYCLINE 100 MG TABLET PO SCH ×2 (13:11→20:46)
[2019-06-20] MEDS: CEFEPIME 2 GM in SODIUM CHLORIDE 0.9% MINIBAG 100 ML IV SCH ×2 (13:15→14:13)
[2019-06-20] MEDS ORDERED: CEFEPIME 1 GM in SODIUM CHLORIDE 0.9% MINIBAG 100 ML IV SCH (14:00)
--- NOTE | 2019-06-20 15:37 | PROVIDER PROGRESS NOTE ---
Assessment/Plan - Problem List (1) Shock Assessment/Plan: It appears she had septic and/or cardiogenic shock yesterday, was in the ICU for a day, needed Levophed support, which was weaned to off this morning. Her comatose mental status also improved, as the BP improved and she requested food of the Lab Support Service Tech. Will continue empiric antibiotics and await cultures. She will be transferred out of the ICU today. (2) Abnormal EKG Assessment/Plan: Tne EKG done yesterday during hypotension showed new, symmetric, deep T wave inversions in leads II, III, AVF and V2-V6, consistent with diffuse ischemia The troponin was 149 then dropped, so it may have peaked before the first value (done at 0500). No Echo has yet been ordered, since her medical management would not chgange substantially, and would put staff and equipment in a COVID environment. (3) Acute non-ST elevation myocardial infarction (NSTEMI) Assessment/Plan: As above. Will continue oral medical management (4) Pneumonia due to 2019 novel coronavirus Assessment/Plan: She did not need to be intubated despite being in a coma in shock. Continue O2 supplemental, empiric Hydroxychloroquin and isolation. (5) HCAP (healthcare-associated pneumonia) Assessment/Plan: Her first full day here, she had a clean chest x-ray. By the following day after IV hydration for MALCOLM, she blossomed with bilateral opacities. She was ordered to start Zithromax then, but on the day of planned dosing, she became somnolent then comatose and yesterday's events occurred and she never got a po dose of Zithromax. Because of her QT of 511 msec, will not use Zithromax. We will plan oral doxycycline for atypical bacteria plus cefepime to cover Pseudomonas. (6) Respiratory failure with hypoxia Assessment/Plan: She presented with a clean chest x-ray on the first day but she was desaturating into the 70% range on room air, at presentation. She has required supplemental oxygen since that time. (7) Acute kidney injury superimposed on CKD Assessment/Plan: Improved with iv rehydration. Follow BMP daily. (8) COPD without exacerbation Assessment/Plan: Her own MDI inhaler was ordered to be used, then RT noticed that it was not present in her room. She has not had wheezing and nebs and iv steroids are not advised to be used during a COVID pneumonia. If her home puffer can be brought in, would order its use. (9) Anemia Qualifiers: Anemia type: iron deficiency Assessment/Plan: She had a diagnosis of iron deficiency anemia, at admission, documented in the [facility] notes. Oral iron replacement can be started again. (10) DM type 2 (diabetes mellitus, type 2) Assessment/Plan: Now that she can restart a diet, will resume her carb controlled diet and a low dose of Lantus twice daily and sliding scale insulin coverage, for glu running in 200's and A1c of 9. (11) Low back pain Assessment/Plan: Oxycodone was her treatment, was on hold while comatose yesterday. (12) Bipolar 1 disorder Assessment/Plan: Her oral psych meds can be resumed. She focuses only on asking me when she can get oxycodone, I do not know if this is from mild dementia or her psychiatric disorder. (13) Hypothyroidism Assessment/Plan: Her thyroid meds can be resumed. (14) Dehydration Assessment/Plan: Resolved - Current Meds Current Meds: Current Medications Generic Name Dose Route Start Last Admin Trade Name Freq PRN Reason Stop Dose Admin Acetaminophen 650 mg 06/20/19 10:53 06/20/19 11:36 Tylenol PO 650 mg Q4HR PRN Administration Pain or Fever > 38C (100.4F) Brimonidine Tartrate 1 drops 06/17/19 21:00 06/20/19 08:40 Alphagan P 0.15% Ophth Drops EACHEYE 1 drops BID LIDIA Administration Doxycycline Hyclate 100 mg 06/20/19 12:01 06/20/19 13:11 Vibramycin PO 100 mg BID LIDIA Administration Hydralazine HCl 10 mg 06/19/19 06:43 06/19/19 07:39 Apresoline Inj IVP 10 mg Q4H PRN Administration PER PHYSICIAN ORDER Norepinephrine Bitartrate 8 mg 250 mls @ 15 mls/hr 06/19/19 18:18 06/20/19 12:23 / Dextrose IV Infused .[id number] LIDIA Titration Protocol 8 MCG/MIN Sodium Chloride 500 mls @ 0 mls/hr 06/20/19 08:13 06/20/19 14:43 Normal Saline 0.9% IV 20 mls/hr Q24H PRN Infusion TKO RATE TKO Cefepime HCl 2 gm/ Sodium 100 mls @ 200 mls/hr 06/20/19 14:00 06/20/19 14:43 Chloride IV Infused Q12H LIDIA Infusion Insulin Aspart 2 - 10 unit 06/20/19 12:00 06/20/19 12:37 Novolog SUBQ 10 unit 0800,1200,1700,2100 LIDIA Administration Protocol Insulin Glargine 8 unit 06/20/19 12:00 06/20/19 12:40 Lantus Solostar SUBQ 8 unit BID LIDIA Administration Latanoprost 1 drops 06/17/19 21:00 06/19/19 21:57 Xalatan Ophth Drops EACHEYE 1 drops QPM LIDIA Administration Lidocaine 1 patch 06/19/19 18:22 06/20/19 11:43 Lidoderm Patch TOP 1 patch DAILY PRN Administration PAIN Metoprolol Succinate 25 mg 06/20/19 09:00 06/20/19 09:46 Toprol Xl PO Not Given DAILY [facility] Morphine Sulfate 2 mg 06/20/19 10:54 06/20/19 13:20 Morphine (Carpuject) IVP 2 mg Q2HR PRN Administration Dyspnea Phenol/Menthol 2 sprays 06/20/19 08:12 06/20/19 08:38 Chloraseptic MM 2 sprays Q2HR PRN Administration Throat Pain Sodium Chloride 10 ml 06/17/19 12:54 06/20/19 13:22 Normal Saline Flush 0.9% IVP 10 ml PRN PRN Administration NEEDED PER PROVIDER ORDERS Sodium Chloride 10 ml 06/17/19 17:00 06/20/19 11:40 Normal Saline Flush 0.9% IVP 10 ml 0100,0900,1700 LIDIA Administration Sodium Chloride 20 ml 06/19/19 19:14 06/20/19 05:18 Normal Saline Flush 0.9% IVP 20 ml PRN PRN Administration After Blood Draw - Lab Result Fish Bone Diagrams: 06/20/19 05:25 06/20/19 05:25 - Additional Planning My Orders: My Active Orders 06/19/19 17:43 Code Status [OTHERS] Routine 06/19/19 18:18 Dextrose 5% [D5w] 242 ml NORepinephrine [Levophed] 8 mg IV 8 mcg/min 06/19/19 18:22 Lidocaine Patch 5% [Lidoderm Patch] 1 patch TOP DAILY PRN 06/19/19 19:14 Sodium Chloride Flush 0.9% [Normal Saline Flush 0.9%] 20 ml IVP PRN PRN 06/20/19 08:12 Phenol [Chloraseptic] 2 sprays MM Q2HR PRN 06/20/19 08:13 Sodium Chloride 0.9% [Normal Saline 0.9%] 500 ml IV Q24H 06/20/19 09:00 Metoprolol Succinate [Toprol Xl] 25 mg PO DAILY 06/20/19 12:00 Insulin Aspart [NovoLOG] 2 - 10 unit SUBQ 0800,1200,1700,2100 Insulin Glargine [Lantus Solostar] 8 unit SUBQ BID 06/20/19 12:01 Doxycycline [Vibramycin] 100 mg PO BID 06/20/19 14:00 Cefepime 2 gm Sodium Chloride 0.9% Minibag [Normal Saline 0.9% Minibag] 100 ml IV Q12H 06/20/19 21:00 Hydroxychloroquine [Plaquenil] 200 mg NG BID 06/20/19 Dinner Carb-controlled Diet [DIET] Dysphagia Puree Diet [DIET] Subjective - Subjective Patient Reports: Feeling Better Objective Vital Signs: Vital Signs - 24 hr 06/19/19 06/19/19 06/19/19 15:40 15:45 15:55 Temperature 36.5 C Heart Rate [ 81 Brachial] Heart Rate [ 78 78 Monitoring electrodes] Respiratory 15 Rate Blood Pressure 83/46 L 90/44 L [Left Brachial artery] Blood Pressure 98/52 L [Right Brachial artery] O2 Saturation 96 06/19/19 06/19/19 06/19/19 15:58 16:00 16:05 Temperature 36.7 C Heart Rate [ Brachial] Heart Rate [ 77 74 76 Monitoring electrodes] Respiratory 16 17 Rate Blood Pressure 86/48 L 98/55 L 82/47 L [Left Brachial artery] Blood Pressure [Right Brachial artery] O2 Saturation 96 97 06/19/19 06/19/19 06/19/19 16:10 16:15 16:20 Temperature Heart Rate [ Brachial] Heart Rate [ 76 75 76 Monitoring electrodes] Respiratory Rate Blood Pressure 98/55 L 98/50 L 98/50 L [Left Brachial artery] Blood Pressure [Right Brachial artery] O2 Saturation 06/19/19 06/19/19 06/19/19 16:25 16:30 16:35 Temperature Heart Rate [ Brachial] Heart Rate [ 75 76 75 Monitoring electrodes] Respiratory Rate Blood Pressure 98/52 L 101/60 92/50 L [Left Brachial artery] Blood Pressure [Right Brachial artery] O2 Saturation 06/19/19 06/19/19 06/19/19 16:40 16:45 16:50 Temperature Heart Rate [ Brachial] Heart Rate [ 74 76 73 Monitoring electrodes] Respiratory Rate Blood Pressure 98/48 L 95/46 L 92/46 L [Left Brachial artery] Blood Pressure [Right Brachial artery] O2 Saturation 06/19/19 06/19/19 06/19/19 17:00 17:10 17:15 Temperature Heart Rate [ Brachial] Heart Rate [ 73 72 71 Monitoring electrodes] Respiratory 16 Rate Blood Pressure 96/45 L 92/46 L 102/52 L [Left Brachial artery] Blood Pressure [Right Brachial artery] O2 Saturation 97 06/19/19 06/19/19 06/19/19 17:20 17:25 17:30 Temperature Heart Rate [ Brachial] Heart Rate [ 68 79 80 Monitoring electrodes] Respiratory Rate Blood Pressure 107/54 L 120/60 110/59 L [Left Brachial artery] Blood Pressure [Right Brachial artery] O2 Saturation 06/19/19 06/19/19 06/19/19 17:35 17:40 17:45 Temperature Heart Rate [ Brachial] Heart Rate [ 76 73 74 Monitoring electrodes] Respiratory Rate Blood Pressure 119/56 L 110/57 L 120/58 L [Left Brachial artery] Blood Pressure [Right Brachial artery] O2 Saturation 06/19/19 06/19/19 06/19/19 17:50 17:55 18:00 Temperature Heart Rate [ Brachial] Heart Rate [ 84 88 85 Monitoring electrodes] Respiratory 18 Rate Blood Pressure 126/59 L 133/66 H 129/65 [Left Brachial artery] Blood Pressure [Right Brachial artery] O2 Saturation 97 06/19/19 06/19/19 06/19/19 18:05 19:00 20:00 Temperature 36 C L Heart Rate [ Brachial] Heart Rate [ 82 115 H 105 H Monitoring electrodes] Respiratory 28 H 17 Rate Blood Pressure 133/59 H 117/71 106/58 L [Left Brachial artery] Blood Pressure [Right Brachial artery] O2 Saturation 98 100 06/19/19 06/19/19 06/19/19 21:00 22:00 23:00 Temperature 36 C L 36.4 C L 36.4 C L Heart Rate [ Brachial] Heart Rate [ 114 H 113 H 102 H Monitoring electrodes] Respiratory 16 22 17 Rate Blood Pressure 88/54 L 104/66 110/58 L [Left Brachial artery] Blood Pressure [Right Brachial artery] O2 Saturation 93 99 100 06/20/19 06/20/19 06/20/19 00:00 00:59 01:40 Temperature 36.5 C 36.3 C L Heart Rate [ Brachial] Heart Rate [ 110 H 108 H 102 H Monitoring electrodes] Respiratory 18 20 19 Rate Blood Pressure 145/76 H 145/76 H 103/62 [Left Brachial artery] Blood Pressure [Right Brachial artery] O2 Saturation 100 100 06/20/19 06/20/19 06/20/19 01:45 01:50 02:00 Temperature 37 C Heart Rate [ Brachial] Heart Rate [ 102 H 103 H 102 H Monitoring electrodes] Respiratory 16 19 19 Rate Blood Pressure 107/49 L 94/55 L 95/48 L [Left Brachial artery] Blood Pressure [Right Brachial artery] O2 Saturation 100 06/20/19 06/20/19 06/20/19 02:34 02:36 02:55 Temperature Heart Rate [ Brachial] Heart Rate [ 104 H 101 H 98 Monitoring electrodes] Respiratory 19 19 18 Rate Blood Pressure 89/46 L 83/49 L 83/46 L [Left Brachial artery] Blood Pressure [Right Brachial artery] O2 Saturation 06/20/19 06/20/19 06/20/19 03:00 03:05 04:00 Temperature 37.1 C Heart Rate [ Brachial] Heart Rate [ 95 95 94 Monitoring electrodes] Respiratory 16 18 18 Rate Blood Pressure 86/52 L 89/54 L 99/57 L [Left Brachial artery] Blood Pressure [Right Brachial artery] O2 Saturation 96 99 06/20/19 06/20/19 06/20/19 05:00 06:00 07:00 Temperature Heart Rate [ Brachial] Heart Rate [ 95 104 H 100 Monitoring electrodes] Respiratory 19 20 21 Rate Blood Pressure 101/52 L 133/72 H 139/67 H [Left Brachial artery] Blood Pressure [Right Brachial artery] O2 Saturation 99 99 99 06/20/19 06/20/19 06/20/19 08:00 08:30 09:00 Temperature 36.8 C Heart Rate [ Brachial] Heart Rate [ 107 H 112 H 108 H Monitoring electrodes] Respiratory 18 24 Rate Blood Pressure 144/82 H 118/70 136/59 H [Left Brachial artery] Blood Pressure [Right Brachial artery] O2 Saturation 99 99 06/20/19 06/20/19 06/20/19 09:30 09:57 09:58 Temperature Heart Rate [ Brachial] Heart Rate [ 109 H 103 H Monitoring electrodes] Respiratory 22 Rate Blood Pressure 128/69 125/71 [Left Brachial artery] Blood Pressure [Right Brachial artery] O2 Saturation 100 06/20/19 06/20/19 06/20/19 10:02 10:15 10:30 Temperature Heart Rate [ Brachial] Heart Rate [ 99 Monitoring electrodes] Respiratory Rate Blood Pressure 135/62 H 134/86 H 144/70 H [Left Brachial artery] Blood Pressure [Right Brachial artery] O2 Saturation 06/20/19 06/20/19 06/20/19 11:00 11:09 11:47 Temperature 36.6 C Heart Rate [ Brachial] Heart Rate [ 110 H 110 H Monitoring electrodes] Respiratory 24 28 H Rate Blood Pressure 126/77 144/77 H 124/78 [Left Brachial artery] Blood Pressure [Right Brachial artery] O2 Saturation 99 100 06/20/19 06/20/19 06/20/19 13:00 14:00 14:41 Temperature 36.5 C 36.5 C Heart Rate [ Brachial] Heart Rate [ 112 H 111 H 109 H Monitoring electrodes] Respiratory 23 26 H 28 H Rate Blood Pressure 105/60 124/69 133/59 H [Left Brachial artery] Blood Pressure [Right Brachial artery] O2 Saturation 98 99 97 Oxygen O2 Source Nasal cannula Oxygen Flow Rate 3 I&O (Last 24 Hrs): Intake and Output Totals x24h 06/18/19 06/19/19 06/20/19 23:59 23:59 23:59 Intake Total 3776.667 2057.042 3591.569 Output Total 850 4855 1590 Balance 3676.667 -952.028 7122.569 General: Alert HEENT: Mucous membr. moist/pink Neck: Supple Neuro: Alert Cardiovascular: Regular rate Respiratory: No respiratory distress Abdomen: Soft Extremities: No edema - Results Results: Laboratory Results WBC 14.7 x10^3/uL (4.8-10.8) H 06/20/19 05:25 RBC 3.05 10^6/uL (4.20-5.40) L 06/20/19 05:25 Hgb 9.1 g/dL (12.0-16.0) L 06/20/19 05:25 Hct 27.7 % (37.0-47.0) L 06/20/19 05:25 MCV 90.8 fL (81.0-99.0) 06/20/19 05:25 MCH 29.8 pg (27.0-31.0) 06/20/19 05:25 MCHC 32.9 g/dL (32.0-36.0) 06/20/19 05:25 RDW 14.6 % (12.0-15.0) 06/20/19 05:25 Plt Count 287 10^3/uL (130-450) 06/20/19 05:25 MPV 9.5 fL (7.9-10.8) 06/20/19 05:25 Neut # (Auto) 12.2 10^3/uL (1.5-6.6) H 06/20/19 05:25 Lymph # (Auto) 1.1 10^3/uL (1.5-3.5) L 06/20/19 05:25 [place] # (Auto) 1.2 10^3/uL (0.0-1.0) H 06/20/19 05:25 Eos # (Auto) 0.0 10^3/uL (0.0-0.7) 06/20/19 05:25 Baso # (Auto) 0.0 10^3/uL (0.0-0.1) 06/20/19 05:25 Absolute Nucleated RBC 0.00 x10^3/uL 06/20/19 05:25 Nucleated RBC % 0.0 /100WBC 06/20/19 05:25 Sodium 137 mmol/L (135-145) 06/20/19 05:25 Potassium 4.7 mmol/L (3.5-5.0) 06/20/19 05:25 Chloride 110 mmol/L (101-111) 06/20/19 05:25 Carbon Dioxide 19 mmol/L (21-32) L 06/20/19 05:25 Anion Gap 8.0 (6-13) 06/20/19 05:25 BUN 36 mg/dL (6-20) H 06/20/19 05:25 Creatinine 1.3 mg/dL (0.4-1.0) H 06/20/19 05:25 Estimated GFR (MDRD) 40 (>89) L 06/20/19 05:25 Glucose 262 mg/dL (70-100) H 06/20/19 05:25 POC Whole Bld Glucose 328 mg/dL (70 - 100) H 06/20/19 12:06 Glycated Hemoglobin 9.5 % (4.6-6.2) H 06/18/19 06:40 Estim Average Glucose 226 (70-100) H 06/18/19 06:40 Lactic Acid 1.3 mmol/L (0.5-2.2) 06/19/19 16:25 Calcium 8.0 mg/dL (8.5-10.3) L 06/20/19 05:25 Magnesium 2.0 mg/dL (1.7-2.8) 06/18/19 06:40 Total Bilirubin 0.3 mg/dL (0.2-1.0) 06/17/19 11:29 AST 33 IU/L (10-42) 06/17/19 11:29 ALT 29 IU/L (10-60) 06/17/19 11:29 Alkaline Phosphatase 57 IU/L (42-121) 06/17/19 11:29 Troponin I High Sens 103.8 ng/L (2.3-14.8) H* 06/19/19 18:41 B-Natriuretic Peptide 361 pg/mL (5-100) H 06/20/19 05:25 Total Protein 6.6 g/dL (6.7-8.2) L 06/17/19 11:29 Albumin 3.0 g/dL (3.2-5.5) L 06/17/19 11:29 Globulin 3.6 g/dL (2.1-4.2) 06/17/19 11:29 Albumin/Globulin Ratio 0.8 (1.0-2.2) L 06/17/19 11:29 Lipase 53 U/L (22-51) H 06/17/19 11:29 Urine Color YELLOW 06/19/19 14:13 Urine Clarity HAZY (CLEAR) 06/19/19 14:13 Urine pH 6.0 PH (5.0-7.5) 06/19/19 14:13 Ur Specific Oral 1.010 (1.002-1.030) 06/19/19 14:13 Urine Protein TRACE mg/dL (NEGATIVE) 06/19/19 14:13 Urine Glucose (UA) 250 mg/dL (NEGATIVE) H 06/19/19 14:13 Urine Ketones NEGATIVE mg/dL (NEGATIVE) 06/19/19 14:13 Urine Occult Blood LARGE (NEGATIVE) H 06/19/19 14:13 Urine Nitrite NEGATIVE (NEGATIVE) 06/19/19 14:13 Urine Bilirubin NEGATIVE (NEGATIVE) 06/19/19 14:13 Urine Urobilinogen 0.2 (NORMAL) E.U./dL (NORMAL) 06/19/19 14:13 Ur Leukocyte Esterase NEGATIVE (NEGATIVE) 06/19/19 14:13 Ur Microscopic Review NOT INDICATED 06/17/19 15:20 Urine Culture Comments NOT INDICATED 06/17/19 15:20 Urine Creatinine 33.9 mg/dL 06/19/19 14:13 Urine Sodium 47.0 mmol/L 06/19/19 14:13 Urine Potassium 17.8 mmol/L 06/19/19 14:13 Nasal Screen MRSA (PCR) NEGATIVE (NEGATIVE) 06/19/19 16:45
[2019-06-20] MEDS: ATORVASTATIN 10 MG TABLET PO SCH (20:45)
[2019-06-20] MEDS: OLANZapine ODT 5 MG TABLET TL SCH (20:46)
[2019-06-20] MEDS ORDERED: oxyCODONE 5 MG TABLET PO SCH (21:00)
[2019-06-20] MEDS: LATANOPROST 0.005% OPHTH DROPS EACHEYE SCH (21:00)
[2019-06-20] MEDS ORDERED: INSULIN GLARGINE 300 UNIT/3 ML PEN SUBQ SCH (21:00)
[2019-06-20] MEDS: GABAPENTIN 300 MG CAPSULE PO SCH (21:07)
[2019-06-21] MEDS: CEFEPIME 2 GM in SODIUM CHLORIDE 0.9% MINIBAG 100 ML IV SCH ×2 (01:40→14:15)
[2019-06-21] MEDS: LEVOTHYROXINE 75 MCG TABLET PO SCH (06:10)
[2019-06-21] MEDS: ACETAMINOPHEN 325 MG TABLET PO PRN ×3 (06:10→21:07)
[2019-06-21] MEDS: GABAPENTIN 300 MG CAPSULE PO SCH ×3 (06:11→21:07)
[2019-06-21] MEDS ORDERED: ALBUTEROL NEB 2.5 MG/3 ML INH PRN (07:55)
[2019-06-21] MEDS ORDERED: SODIUM CHLORIDE 0.9% 1,000 ML IV SCH (08:00)
[2019-06-21] MEDS ORDERED: oxyCODONE 5 MG TABLET PO SCH (08:00)
[2019-06-21] MEDS: DOXYCYCLINE 100 MG TABLET PO SCH (08:05)
[2019-06-21] MEDS: FERROUS GLUCONATE 324 MG TABLET PO SCH (08:05)
[2019-06-21] MEDS: lisinopriL 5 MG TABLET PO SCH (08:07)
[2019-06-21] MEDS: HYDROXYCHLOROQUINE 200 MG TABLET NG SCH ×2 (08:07→21:06)
[2019-06-21] MEDS: clonazePAM 0.5 MG TABLET PO SCH (08:07)
[2019-06-21] MEDS: SODIUM CHLORIDE FLUSH 0.9% 10 ML SYRINGE IVP SCH ×2 (08:08→17:02)
[2019-06-21] MEDS: INSULIN GLARGINE 300 UNIT/3 ML PEN SUBQ SCH (08:11)
[2019-06-21] MEDS: INSULIN ASPART 300 UNIT/3 ML PEN SUBQ SCH ×4 (08:13→21:08)
[2019-06-21] MEDS: BRIMONIDINE 0.15% OPHTH DROPS 5 ML EACHEYE SCH ×2 (08:13→21:09)
[2019-06-21 08:43] LABS: BASOPHILS % (AUTO) 0.2 %; EOSINOPHILS % (AUTO) 0.2 %; HGB - HEMOGLOBIN 8.6 g/dL (12.0-16.0); LYMPHOCYTES # (AUTO) 1.3 10^3/uL (1.5-3.5); LYMPHOCYTES % (AUTO) 10.8 %; MEAN CORPUSCULAR HEMOGLOBIN 29.3 pg (27.0-31.0); MEAN CORPUSCULAR HGB CONC 32.3 g/dL (32.0-36.0); MEAN CORPUSCULAR VOLUME 90.5 fL (81.0-99.0); MEAN PLATELET VOLUME 9.1 fL (7.9-10.8); MONOCYTES # (AUTO) 1.1 10^3/uL (0.0-1.0); MONOCYTES % (AUTO) 9.3 %; NEUTROPHILS # (AUTO) 9.4 10^3/uL (1.5-6.6); NEUTROPHILS % (AUTO) 77.4 %; PLT - PLATELET COUNT 275 10^3/uL (130-450); RED BLOOD COUNT 2.94 10^6/uL (4.20-5.40); RED CELL DISTRIBUTION WIDTH 14.6 % (12.0-15.0); WHITE BLOOD COUNT 12.2 x10^3/uL (4.8-10.8)
[2019-06-21] MEDS ORDERED: ASPIRIN CHEW 81 MG TABLET PO SCH (09:00)
[2019-06-21] MEDS ORDERED: METOPROLOL SUCCINATE 25 MG TABLET PO SCH (09:00)
[2019-06-21] MEDS ORDERED: HYDROXYCHLOROQUINE 200 MG TABLET NG SCH (09:00)
[2019-06-21 09:07] LABS: ALBUMIN 2.2 g/dL (3.2-5.5); ALBUMIN/GLOBULIN RATIO 0.6 (1.0-2.2); BILIRUBIN,TOTAL 0.5 mg/dL (0.2-1.0); CALCIUM 8.1 mg/dL (8.5-10.3); CREATININE 1.1 mg/dL (0.4-1.0); TOTAL PROTEIN 5.8 g/dL (6.7-8.2)
[2019-06-21] MEDS ORDERED: VANCOMYCIN PER PHARMACY 1 GM in SODIUM CHLORIDE 0.9% 250 ML IV SCH (10:00)
[2019-06-21] MEDS ORDERED: ASPIRIN CHEW 81 MG TABLET PO ONE (10:00)
[2019-06-21] MEDS: ENOXAPARIN 60 MG/0.6 ML SYRINGE SUBQ SCH ×2 (10:19→21:10)
[2019-06-21] MEDS: VANCOMYCIN INJ 1 GM, VANCOMYCIN INJ 500 MG in SODIUM CHLORIDE 0.9% 500 ML IV SCH (11:46)
--- NOTE | 2019-06-21 13:50 | PROVIDER PROGRESS NOTE ---
Subjective - Prog Note Date Prog Note Date: 06/21/19 - Subjective Pt reports feeling: Worse Subjective: pt is still weak and need nurse feeding. pt is alert and answered two simple questions, denies chest pain, then easy to fall into sleep. I called pt's wong rabago, per Linda Rao's request, at [phone], reported pt has no fever, has O2 sats of 93% on room air but pt's NSTEMI is worsening, elevated troponin to 1039, still present tachycardia, elevated WBC and elevated lactic acid. pt was out of ICU on yesterday, we will transfer pt to ICU as medical condition needed. Linda understood and still requested full code and do anything we can to help pt. Current Medications - Current Medications Current Medications: Active Medications Acetaminophen (Tylenol) 650 mg PO Q4HR PRN PRN Reason: Pain or Fever > 38C (100.4F) Last Admin: 06/21/19 12:57 Dose: 650 mg Aspirin (Sandra) 325 mg PO DAILYWM [facility] Atorvastatin Calcium (Lipitor) 20 mg PO QPM [facility] Last Admin: 06/20/19 20:45 Dose: 20 mg Brimonidine Tartrate (Alphagan P 0.15% Ophth Drops) 1 drops EACHEYE BID [facility] Last Admin: 06/21/19 08:13 Dose: 1 drops Clonazepam (Klonopin) 0.5 mg PO DAILY [facility] Last Admin: 06/21/19 08:07 Dose: 0.5 mg Enoxaparin Sodium (Lovenox) 60 mg SUBQ BID [facility] Last Admin: 06/21/19 10:19 Dose: 60 mg Ferrous Gluconate (Fergon) 324 mg PO DAILYWM [facility] Last Admin: 06/21/19 08:05 Dose: 324 mg Gabapentin (Neurontin) 300 mg PO TID [facility] Last Admin: 06/21/19 06:11 Dose: 300 mg Hydralazine HCl (Apresoline Inj) 10 mg IVP Q4H PRN PRN Reason: PER PHYSICIAN ORDER Last Admin: 06/19/19 07:39 Dose: 10 mg Hydroxychloroquine Sulfate (Plaquenil) 200 mg NG BID [facility] Stop: 06/23/19 21:01 Last Admin: 06/21/19 08:07 Dose: 200 mg Sodium Chloride (Normal Saline 0.9%) 500 mls @ 0 mls/hr IV Q24H PRN PRN Reason: TKO RATE Last Infusion: 06/21/19 13:30 Dose: Infused Cefepime HCl 2 gm/ Sodium (Chloride) 100 mls @ 200 mls/hr IV Q12H [facility] Last Infusion: 06/21/19 03:15 Dose: Infused Vancomycin HCl 1 gm/Vancomycin HCl 500 mg/ Sodium Chloride 500 mls @ 250 mls/hr IV Q24H [facility] Last Infusion: 06/21/19 13:49 Dose: Infused Vancomycin HCl 1 gm/ Sodium (Chloride) 250 mls @ 167 mls/hr IV Q24H [facility] Insulin Aspart (Novolog) 3 - 11 unit SUBQ 0800,1200,1700,2100 [facility]; Protocol Insulin Glargine (Lantus Solostar) 30 unit SUBQ QDBREAKFAST [facility] Last Admin: 06/21/19 08:11 Dose: 30 unit Latanoprost (Xalatan Ophth Drops) 1 drops EACHEYE QPM [facility] Last Admin: 06/20/19 21:00 Dose: 1 drops Levothyroxine Sodium (Synthroid) 75 mcg PO QDAC [facility] Last Admin: 06/21/19 06:10 Dose: 75 mcg Lidocaine (Lidoderm Patch) 1 patch TOP DAILY PRN PRN Reason: PAIN Last Admin: 06/20/19 11:43 Dose: 1 patch Lisinopril (Zestril) 10 mg PO DAILY [facility] Last Admin: 06/21/19 08:07 Dose: 10 mg Metoprolol Succinate (Toprol Xl) 37.5 mg PO DAILY [facility] Last Admin: 06/21/19 08:14 Dose: 37.5 mg Metoprolol Tartrate (Lopressor Inj) 5 mg IVP Q6H PRN PRN Reason: Tachycardia Last Admin: 06/20/19 20:53 Dose: 5 mg Morphine Sulfate (Morphine (Carpuject)) 2 mg IVP Q2HR PRN PRN Reason: Dyspnea Last Admin: 06/20/19 13:20 Dose: 2 mg Olanzapine (Zyprexa Odt) 15 mg TL QPM [facility] Last Admin: 06/20/19 20:46 Dose: 15 mg Phenol/Menthol (Chloraseptic) 2 sprays MM Q2HR PRN PRN Reason: Throat Pain Last Admin: 06/20/19 08:38 Dose: 2 sprays Polyethylene Glycol (Miralax) 17 gm PO DAILY [facility] Sodium Chloride (Normal Saline Flush 0.9%) 10 ml IVP PRN PRN PRN Reason: NEEDED PER PROVIDER ORDERS Last Admin: 06/20/19 13:22 Dose: 10 ml Sodium Chloride (Normal Saline Flush 0.9%) 10 ml IVP 0100,0900,1700 [facility] Last Admin: 06/21/19 08:08 Dose: 10 ml Sodium Chloride (Normal Saline Flush 0.9%) 20 ml IVP PRN PRN PRN Reason: After Blood Draw Last Admin: 06/20/19 05:18 Dose: 20 ml Clonazepam 0.25 mg PO DAILY PRN 03/14/13 Gabapentin [Neurontin] 300 mg PO QID 03/14/13 Metoprolol Tartrate [Lopressor] 25 mg PO BIDWM 03/14/13 OLANZapine [ZyPREXA] 15 mg PO QPM 03/14/13 Travoprost 0.004% Ophth Drops [Travatan Z] 1 drops EACHEYE QPM 03/14/13 Ascorbic Acid [Vitamin C] 500 mg PO BID 04/25/14 Ipratropium/Albuterol [Combivent Respimat] 1 puffs INH QID 05/27/14 Acetaminophen [Tylenol] 650 mg PO DAILY 06/17/19 Acetaminophen [Tylenol] 650 mg PO Q4H PRN 06/17/19 Aspirin Chewable [[place] Aspirin] 81 mg PO DAILY 06/17/19 Brimonidine Tartrate 1 drops EACHEYE BID 06/17/19 Enalapril Maleate 10 mg PO DAILY 06/17/19 Ferrous Gluconate [Iron] 240 mg PO DAILY 06/17/19 Insulin Glargine [Lantus Solostar] 38 unit SUBQ QPM 06/17/19 Levothyroxine [Synthroid] 75 mcg PO QDAC 06/17/19 Magnesium 250 mg PO DAILY 06/17/19 Metformin HCl 1,000 mg PO BIDWM 06/17/19 Multivitamin [Theragran] 1 tab PO DAILY 06/17/19 Simvastatin 40 mg PO QPM 06/17/19 clonazePAM [Clonazepam] 0.5 mg PO DAILY 06/17/19 oxyCODONE/ACET 5/325 [Percocet 5 mg/325 mg] 0.5 tab PO 0800,1200 06/17/19 oxyCODONE/ACET 5/325 [Percocet 5 mg/325 mg] 1 tab PO QPM 06/17/19 oxyCODONE/ACET 5/325 [Percocet 5 mg/325 mg] 2 tab PO Q6H PRN 06/17/19 Objective - Vital Signs/Intake & Output Vital Signs: Vital Signs x48h Temp Pulse Pulse Resp BP Pulse Ox 06/21/19 11:36 36.9 C 102 H 24 135/60 H 93 06/21/19 08:01 37.3 C 111 H 24 143/68 H 95 Intake & Output: Intake & Output 06/18/19 06/19/19 06/20/19 06/21/19 23:59 23:59 23:59 23:59 Intake Total 3776.667 2057.042 3949.074 1540 Output Total 850 2725 2790 675 Balance 2926.667 -936.134 8811.074 865 - Objective General Appearance: positive: No acute distress, Alert. negative: Lethargic Eyes Bilateral: positive: Normal inspection, PERRL, No lid inflammation ENT: positive: ENT inspection nml, Pharynx nml, No signs of dehydration. negative: Purulent nasal drainage Neck: positive: Nml inspection, Thyroid nml, No JVD, Trachea midline. negative: Stiff neck, Tracheal deviation Respiratory: positive: Chest non-tender, No respiratory distress, Rhonchi. negative: Wheezes, Rales Cardiovascular: positive: Regular rate & rhythm, No murmur, No gallop, Tachycardia. negative: Irregularly irregular, Extrasystoles, Bradycardia, JVD present, Systolic murmur, Diastolic murmur Peripheral Pulses: 2+ Radial (R), 2+ Radial (L), 2+ Dorsalis pedis (R), 2+ Dorsalis pedis (L) Abdomen: positive: Non-tender, No organomegaly, Nml bowel sounds, No distention. negative: Tenderness, Guarding, Rebound Back: positive: Nml inspection Skin: positive: Color nml, No rash, Warm, Dry. negative: Cyanosis, Diaphoresis, Pallor Extremities: positive: Non-tender. negative: Calf tenderness, Vipul's sign/cords Neurologic/Psychiatric: positive: Sensation nml. negative: Weakness, Sensory loss, Facial droop, Slurred/abnml speech - Lab Results Fish Bones: 06/21/19 08:30 06/21/19 08:30 Other Labs: Lab Results x24hrs 06/21/19 06/21/19 06/21/19 Range/Units 11:32 08:30 08:30 WBC (4.8-10.8) x10^3/uL RBC (4.20-5.40) 10^6/uL Hgb (12.0-16.0) g/dL Hct (37.0-47.0) % MCV (81.0-99.0) fL MCH (27.0-31.0) pg MCHC (32.0-36.0) g/dL RDW (12.0-15.0) % Plt Count (130-450) 10^3/uL MPV (7.9-10.8) fL Neut # (Auto) (1.5-6.6) 10^3/uL Lymph # (Auto) (1.5-3.5) 10^3/uL [place] # (Auto) (0.0-1.0) 10^3/uL Eos # (Auto) (0.0-0.7) 10^3/uL Baso # (Auto) (0.0-0.1) 10^3/uL Absolute Nucleated RBC x10^3/uL Nucleated RBC % /100WBC Sodium (135-145) mmol/L Potassium (3.5-5.0) mmol/L Chloride (101-111) mmol/L Carbon Dioxide (21-32) mmol/L Anion Gap (6-13) BUN (6-20) mg/dL Creatinine (0.4-1.0) mg/dL Estimated GFR (MDRD) (>89) Glucose (70-100) mg/dL POC Whole Bld Glucose 306 H (70 - 100) mg/dL Lactic Acid 2.3 H (0.5-2.2) mmol/L Calcium (8.5-10.3) mg/dL Total Bilirubin (0.2-1.0) mg/dL AST (10-42) IU/L ALT (10-60) IU/L Alkaline Phosphatase (42-121) IU/L Troponin I High Sens (2.3-14.8) ng/L C-Reactive Protein 13.0 H (0-1.0) mg/dL B-Natriuretic Peptide (5-100) pg/mL Total Protein (6.7-8.2) g/dL Albumin (3.2-5.5) g/dL Globulin (2.1-4.2) g/dL Albumin/Globulin Ratio (1.0-2.2) 06/21/19 06/21/19 06/21/19 Range/Units 08:30 08:30 08:30 WBC (4.8-10.8) x10^3/uL RBC (4.20-5.40) 10^6/uL Hgb (12.0-16.0) g/dL Hct (37.0-47.0) % MCV (81.0-99.0) fL MCH (27.0-31.0) pg MCHC (32.0-36.0) g/dL RDW (12.0-15.0) % Plt Count (130-450) 10^3/uL MPV (7.9-10.8) fL Neut # (Auto) (1.5-6.6) 10^3/uL Lymph # (Auto) (1.5-3.5) 10^3/uL [place] # (Auto) (0.0-1.0) 10^3/uL Eos # (Auto) (0.0-0.7) 10^3/uL Baso # (Auto) (0.0-0.1) 10^3/uL Absolute Nucleated RBC x10^3/uL Nucleated RBC % /100WBC Sodium 134 L (135-145) mmol/L Potassium 4.7 (3.5-5.0) mmol/L Chloride 108 (101-111) mmol/L Carbon Dioxide 19 L (21-32) mmol/L Anion Gap 7.0 (6-13) BUN 26 H (6-20) mg/dL Creatinine 1.1 H (0.4-1.0) mg/dL Estimated GFR (MDRD) 49 L (>89) Glucose 279 H (70-100) mg/dL POC Whole Bld Glucose (70 - 100) mg/dL Lactic Acid (0.5-2.2) mmol/L Calcium 8.1 L (8.5-10.3) mg/dL Total Bilirubin 0.5 (0.2-1.0) mg/dL AST 24 (10-42) IU/L ALT 32 (10-60) IU/L Alkaline Phosphatase 55 (42-121) IU/L Troponin I High Sens 1039.1 H* (2.3-14.8) ng/L C-Reactive Protein (0-1.0) mg/dL B-Natriuretic Peptide 538 H (5-100) pg/mL Total Protein 5.8 L (6.7-8.2) g/dL Albumin 2.2 L (3.2-5.5) g/dL Globulin 3.6 (2.1-4.2) g/dL Albumin/Globulin Ratio 0.6 L (1.0-2.2) 06/21/19 06/21/19 06/20/19 Range/Units 08:30 08:03 20:37 WBC 12.2 H (4.8-10.8) x10^3/uL RBC 2.94 L (4.20-5.40) 10^6/uL Hgb 8.6 L (12.0-16.0) g/dL Hct 26.6 L (37.0-47.0) % MCV 90.5 (81.0-99.0) fL MCH 29.3 (27.0-31.0) pg MCHC 32.3 (32.0-36.0) g/dL RDW 14.6 (12.0-15.0) % Plt Count 275 (130-450) 10^3/uL MPV 9.1 (7.9-10.8) fL Neut # (Auto) 9.4 H (1.5-6.6) 10^3/uL Lymph # (Auto) 1.3 L (1.5-3.5) 10^3/uL [place] # (Auto) 1.1 H (0.0-1.0) 10^3/uL Eos # (Auto) 0.0 (0.0-0.7) 10^3/uL Baso # (Auto) 0.0 (0.0-0.1) 10^3/uL Absolute Nucleated RBC 0.00 x10^3/uL Nucleated RBC % 0.0 /100WBC Sodium (135-145) mmol/L Potassium (3.5-5.0) mmol/L Chloride (101-111) mmol/L Carbon Dioxide (21-32) mmol/L Anion Gap (6-13) BUN (6-20) mg/dL Creatinine (0.4-1.0) mg/dL Estimated GFR (MDRD) (>89) Glucose (70-100) mg/dL POC Whole Bld Glucose 211 H 278 H (70 - 100) mg/dL Lactic Acid (0.5-2.2) mmol/L Calcium (8.5-10.3) mg/dL Total Bilirubin (0.2-1.0) mg/dL AST (10-42) IU/L ALT (10-60) IU/L Alkaline Phosphatase (42-121) IU/L Troponin I High Sens (2.3-14.8) ng/L C-Reactive Protein (0-1.0) mg/dL B-Natriuretic Peptide (5-100) pg/mL Total Protein (6.7-8.2) g/dL Albumin (3.2-5.5) g/dL Globulin (2.1-4.2) g/dL Albumin/Globulin Ratio (1.0-2.2) 06/20/19 Range/Units 17:18 WBC (4.8-10.8) x10^3/uL RBC (4.20-5.40) 10^6/uL Hgb (12.0-16.0) g/dL Hct (37.0-47.0) % MCV (81.0-99.0) fL MCH (27.0-31.0) pg MCHC (32.0-36.0) g/dL RDW (12.0-15.0) % Plt Count (130-450) 10^3/uL MPV (7.9-10.8) fL Neut # (Auto) (1.5-6.6) 10^3/uL Lymph # (Auto) (1.5-3.5) 10^3/uL [place] # (Auto) (0.0-1.0) 10^3/uL Eos # (Auto) (0.0-0.7) 10^3/uL Baso # (Auto) (0.0-0.1) 10^3/uL Absolute Nucleated RBC x10^3/uL Nucleated RBC % /100WBC Sodium (135-145) mmol/L Potassium (3.5-5.0) mmol/L Chloride (101-111) mmol/L Carbon Dioxide (21-32) mmol/L Anion Gap (6-13) BUN (6-20) mg/dL Creatinine (0.4-1.0) mg/dL Estimated GFR (MDRD) (>89) Glucose (70-100) mg/dL POC Whole Bld Glucose 281 H (70 - 100) mg/dL Lactic Acid (0.5-2.2) mmol/L Calcium (8.5-10.3) mg/dL Total Bilirubin (0.2-1.0) mg/dL AST (10-42) IU/L ALT (10-60) IU/L Alkaline Phosphatase (42-121) IU/L Troponin I High Sens (2.3-14.8) ng/L C-Reactive Protein (0-1.0) mg/dL B-Natriuretic Peptide (5-100) pg/mL Total Protein (6.7-8.2) g/dL Albumin (3.2-5.5) g/dL Globulin (2.1-4.2) g/dL Albumin/Globulin Ratio (1.0-2.2) ABX Reporting Has patient been on IV antibiotics over the past 48 hours?: Yes Assessment/Plan - Problem List (1) Acute non-ST elevation myocardial infarction (NSTEMI) Impression: 06/20 pt's troponin increase to 1039. pt had NSTEMI and shock, and she was sent to ICU, then she was d/c from ICU on yesterday. pt's shock was likely from over- medicated per previous provider's documentation. order Aspirin and Lovenox, order serial troponin continue tele, vital monitor closely, will transfer to ICU for high level care as medical condition needed (2) Pneumonia due to 2019 novel coronavirus Assessment/Plan: 06/20 improved. pt has no fever, has 93% sats on room air, RR is 24, tachycardia is improving to HR 103 Continue O2 supplemental, empiric Hydroxychloroquin and isolation. (3) HCAP (healthcare-associated pneumonia) Assessment/Plan: 06/20 pt has elevated WBC, and elevated lactic acid, pt had Covid 19 positive, HCAP secondary to virus lung infection is consideration. D/C doxycycle and Vancomycin continue Cefepime (4) Respiratory failure with hypoxia Assessment/Plan: 06/20 pt is improved. has 93% sats on room air, HR is down 103. continue supplement of O2, continue anti-bacteremia and Hydroxychloroquin (5) Acute kidney injury superimposed on CKD Assessment/Plan: 06/20 Improved with iv rehydration. Follow BMP daily. (6) COPD without exacerbation Assessment/Plan: 06/20 pt has not had wheezing and nebs and iv steroids are not advised to be used during a COVID pneumonia. If her home puffer can be brought in, would order its use. (7) Anemia pt had a diagnosis of iron deficiency anemia, at admission, documented in the [facility] notes. Oral iron replacement can be started again. (8) DM type 2 (diabetes mellitus, type 2) Assessment/Plan: 06/20 pt has A1C 9.5, add pt's home Lantus in AM at 30 unit and increase SSI insulin dosage continue SSI, ACHS, and hypoglycemia protocol (9) Low back pain Assessment/Plan: Oxycodone was on hold because of her shock and over-medicated, PRN Irma or duyen. (10) Bipolar 1 disorder Assessment/Plan: continue pt's home meds (11) Hypothyroidism Assessment/Plan: will order TSH, continue Her thyroid meds can be resumed. (12) Dehydration Assessment/Plan: Resolved
[2019-06-21] MEDS: polyethylene glycoL 3350 17 GM PACKET PO SCH (14:14)
[2019-06-21 15:03] LABS: HB2 TOTAL 7.9 g/dL; HEMOGLOBIN A1C 0.66 g/dL; HEMOGLOBIN A1C % 9.8 % (4.6-6.2)
[2019-06-21] MEDS: HYDROcod/ACETAM 10 MG/325 MG TABLET PO PRN (16:57)
[2019-06-21] MEDS ORDERED: INSULIN GLARGINE 300 UNIT/3 ML PEN SUBQ SCH (21:00)
[2019-06-21] MEDS: ATORVASTATIN 10 MG TABLET PO SCH (21:07)
[2019-06-21] MEDS: OLANZapine ODT 5 MG TABLET TL SCH (21:07)
[2019-06-21] MEDS: LATANOPROST 0.005% OPHTH DROPS EACHEYE SCH (21:09)
[2019-06-22] MEDS: CEFEPIME 2 GM in SODIUM CHLORIDE 0.9% MINIBAG 100 ML IV SCH ×2 (01:24→14:41)
[2019-06-22] MEDS: SODIUM CHLORIDE FLUSH 0.9% 10 ML SYRINGE IVP SCH ×3 (01:26→16:39)
[2019-06-22] MEDS: HYDROcod/ACETAM 10 MG/325 MG TABLET PO PRN ×3 (03:28→16:39)
[2019-06-22] MEDS: hydrALAZINE INJ 20 MG/ML VIAL IVP PRN ×2 (03:28→21:18)
--- NOTE | 2019-06-22 05:04 | XRAY Report ---
Reason: Worsening dyspnea. Tachypnea. COVID+. Procedure Date: 06/22/2019 Accession Number: [id number] / [id number] Procedure: XR - Chest 1 View X-Ray CPT Code: 78253 Final Report FULL RESULT: EXAM: CHEST RADIOGRAPHY EXAM DATE: 06/22/2019 04:36 AM. CLINICAL HISTORY: Worsening dyspnea. Tachypnea. COVID+. COMPARISON: CHEST FOR LINE PLACEMENT 06/19/2019 11:25 PM. TECHNIQUE: 1 view. FINDINGS: The left subclavian approach central venous catheter tip overlies the right atrium. Atherosclerotic plaque calcifications are seen in the aorta. The heart size is normal. Lung volumes are decreased with bilaterally increased interstitial opacities and bibasilar airspace opacities. There is no pleural effusion or pneumothorax. IMPRESSION: Increased bilateral interstitial opacities and bibasilar airspace opacities. [facility]IA
[2019-06-22 05:21] LABS: BASOPHILS % (AUTO) 0.2 %; EOSINOPHILS # (AUTO) 0.1 10^3/uL (0.0-0.7); HGB - HEMOGLOBIN 8.3 g/dL (12.0-16.0); LYMPHOCYTES # (AUTO) 1.8 10^3/uL (1.5-3.5); MEAN CORPUSCULAR HEMOGLOBIN 27.9 pg (27.0-31.0); MEAN CORPUSCULAR HGB CONC 30.9 g/dL (32.0-36.0); MEAN CORPUSCULAR VOLUME 90.3 fL (81.0-99.0); MEAN PLATELET VOLUME 9.3 fL (7.9-10.8); MONOCYTES % (AUTO) 9.1 %; NEUTROPHILS # (AUTO) 7.2 10^3/uL (1.5-6.6); NEUTROPHILS % (AUTO) 68.1 %; PLT - PLATELET COUNT 301 10^3/uL (130-450); RED BLOOD COUNT 2.98 10^6/uL (4.20-5.40); RED CELL DISTRIBUTION WIDTH 14.7 % (12.0-15.0); WHITE BLOOD COUNT 10.5 x10^3/uL (4.8-10.8)
[2019-06-22 05:31] LABS: MAGNESIUM 1.8 mg/dL (1.7-2.8); PHOSPHORUS 1.7 mg/dL (2.5-4.6)
[2019-06-22 05:37] LABS: CALCIUM 8.3 mg/dL (8.5-10.3); CREATININE 0.9 mg/dL (0.4-1.0); CRP - C-REACTIVE PROTEIN 11.7 mg/dL (0-1.0)
[2019-06-22] MEDS: polyethylene glycoL 3350 17 GM PACKET PO SCH (09:18)
[2019-06-22] MEDS: ASPIRIN 325 MG TABLET PO SCH (09:19)
[2019-06-22] MEDS: clonazePAM 0.5 MG TABLET PO SCH (09:19)
[2019-06-22] MEDS: ENOXAPARIN 60 MG/0.6 ML SYRINGE SUBQ SCH ×2 (09:19→21:02)
[2019-06-22] MEDS: FERROUS GLUCONATE 324 MG TABLET PO SCH (09:19)
[2019-06-22] MEDS: HYDROXYCHLOROQUINE 200 MG TABLET NG SCH ×2 (09:19→21:03)
[2019-06-22] MEDS: METOPROLOL SUCCINATE 25 MG TABLET PO SCH (09:19)
[2019-06-22] MEDS: lisinopriL 5 MG TABLET PO SCH (09:19)
[2019-06-22] MEDS: INSULIN GLARGINE 300 UNIT/3 ML PEN SUBQ SCH (09:22)
[2019-06-22] MEDS: LEVOTHYROXINE 75 MCG TABLET PO SCH (09:27)
[2019-06-22] MEDS: GABAPENTIN 300 MG CAPSULE PO SCH ×3 (09:27→21:02)
[2019-06-22 09:31] LABS: ABSOLUTE RETICS # AUTO 0.032 10^6/uL (0.020-0.110); RED BLOOD COUNT 2.96 10^6/uL (4.20-5.40)
[2019-06-22] MEDS: INSULIN ASPART 300 UNIT/3 ML PEN SUBQ SCH ×4 (09:31→21:02)
[2019-06-22] MEDS: BRIMONIDINE 0.15% OPHTH DROPS 5 ML EACHEYE SCH ×2 (09:40→21:02)
[2019-06-22 09:46] LABS: % IRON SATURATION 12 % (20-50); IRON 24 ug/dL (28-170); TOTAL IRON BINDING CAPACITY 196 ug/dL (250-450); TRANSFERRIN 140 mg/dL (192-382)
[2019-06-22 10:12] LABS: FERRITIN 275.1 ng/mL (11.0-306.8)
[2019-06-22] MEDS ORDERED: FERROUS SULFATE 325 MG TABLET PO SCH (11:00)
[2019-06-22] MEDS ORDERED: VANCOMYCIN INJ 1 GM in SODIUM CHLORIDE 0.9% 250 ML IV SCH (12:00)
--- NOTE | 2019-06-22 12:05 | PROVIDER PROGRESS NOTE ---
Subjective - Prog Note Date Prog Note Date: 06/22/19 - Subjective Pt reports feeling: No change Subjective: pt is alert and oriented to person. she report she still has back pain. pt has hx of chronic back pain. pt has poor appetite today. she denies fever or chill or SOB. Last night pt required 2 liter of O2 but this morning pt does not require. now she has 98% sat on room air, and RR is 24. CXR reveals increased bilateral interstitial opacities and bibasilar airspace opacities. Pt's troponin is significant running down from over 1000 to 300, and HR is 102 now. pt denies chest pain. I called pt's sister Linda at [phone], no one black pickler the phone, a message is left. Current Medications - Current Medications Current Medications: Active Medications Acetaminophen (Tylenol) 650 mg PO Q4HR PRN PRN Reason: Pain or Fever > 38C (100.4F) Last Admin: 06/21/19 21:07 Dose: 650 mg Hydrocodone Bitart/Acetaminophen ([place] 10 Mg/325 Mg) 1 tab PO Q6HR PRN PRN Reason: PAIN Last Admin: 06/22/19 09:26 Dose: 1 tab Aspirin (Sandra) 325 mg PO DAILYWM [facility] Last Admin: 06/22/19 09:19 Dose: 325 mg Atorvastatin Calcium (Lipitor) 20 mg PO QPM [facility] Last Admin: 06/21/19 21:07 Dose: 20 mg Brimonidine Tartrate ([place]phagan P 0.15% Ophth Drops) 1 drops EACHEYE BID [facility] Last Admin: 06/22/19 09:40 Dose: 1 drops Clonazepam (Klonopin) 0.5 mg PO DAILY [facility] Last Admin: 06/22/19 09:19 Dose: 0.5 mg Enoxaparin Sodium (Lovenox) 60 mg SUBQ BID [facility] Last Admin: 06/22/19 09:19 Dose: 60 mg Ferrous Gluconate (Fergon) 324 mg PO DAILYWM [facility] Last Admin: 06/22/19 09:19 Dose: 324 mg Gabapentin (Neurontin) 300 mg PO TID [facility] Last Admin: 06/22/19 09:27 Dose: 300 mg Hydralazine HCl (Apresoline Inj) 10 mg IVP Q4H PRN PRN Reason: PER PHYSICIAN ORDER Last Admin: 06/22/19 03:28 Dose: 10 mg Hydroxychloroquine Sulfate (Plaquenil) 200 mg NG BID [facility] Stop: 06/23/19 21:01 Last Admin: 06/22/19 09:19 Dose: 200 mg Cefepime HCl 2 gm/ Sodium (Chloride) 100 mls @ 200 mls/hr IV Q12H [facility] Last Infusion: 06/22/19 07:35 Dose: Infused Vancomycin HCl 1 gm/Vancomycin HCl 500 mg/ Sodium Chloride 500 mls @ 250 mls/hr IV Q24H [facility] Last Infusion: 06/21/19 13:49 Dose: Infused Vancomycin HCl 1 gm/ Sodium (Chloride) 250 mls @ 167 mls/hr IV Q24H [facility] Insulin Aspart (Novolog) 3 - 11 unit SUBQ 0800,1200,1700,2100 [facility]; Protocol Last Admin: 06/22/19 09:31 Dose: 3 unit Insulin Glargine (Lantus Solostar) 30 unit SUBQ QDBREAKFAST [facility] Last Admin: 06/22/19 09:22 Dose: 30 unit Latanoprost (Xalatan Ophth Drops) 1 drops EACHEYE QPM [facility] Last Admin: 06/21/19 21:09 Dose: 1 drops Levothyroxine Sodium (Synthroid) 75 mcg PO QDAC [facility] Last Admin: 06/22/19 09:27 Dose: 75 mcg Lidocaine (Lidoderm Patch) 1 patch TOP DAILY PRN PRN Reason: PAIN Last Admin: 06/20/19 11:43 Dose: 1 patch Lisinopril (Zestril) 10 mg PO DAILY [facility] Last Admin: 06/22/19 09:19 Dose: 10 mg Metoprolol Succinate (Toprol Xl) 50 mg PO DAILY [facility] Last Admin: 06/22/19 09:19 Dose: 50 mg Metoprolol Tartrate (Lopressor Inj) 5 mg IVP Q6H PRN PRN Reason: Tachycardia Last Admin: 06/20/19 20:53 Dose: 5 mg Morphine Sulfate (Morphine (Carpuject)) 2 mg IVP Q2HR PRN PRN Reason: Dyspnea Last Admin: 06/20/19 13:20 Dose: 2 mg Olanzapine (Zyprexa Odt) 15 mg TL QPM [facility] Last Admin: 06/21/19 21:07 Dose: 15 mg Oxycodone HCl (Roxicodone) 2.5 mg PO BID [facility] Phenol/Menthol (Chloraseptic) 2 sprays MM Q2HR PRN PRN Reason: Throat Pain Last Admin: 06/20/19 08:38 Dose: 2 sprays Polyethylene Glycol (Miralax) 17 gm PO DAILY [facility] Last Admin: 06/22/19 09:18 Dose: 17 gm Saccharomyces Boulardii (Florastor) 250 mg PO BIDWM [facility] Sodium Chloride (Normal Saline Flush 0.9%) 10 ml IVP PRN PRN PRN Reason: NEEDED PER PROVIDER ORDERS Last Admin: 06/20/19 13:22 Dose: 10 ml Sodium Chloride (Normal Saline Flush 0.9%) 10 ml IVP 0100,0900,1700 [facility] Last Admin: 06/22/19 09:20 Dose: 10 ml Sodium Chloride (Normal Saline Flush 0.9%) 20 ml IVP PRN PRN PRN Reason: After Blood Draw Last Admin: 06/20/19 05:18 Dose: 20 ml Sodium Phosphate (K-Phos Neutral) 250 mg PO TIDWM [facility] Clonazepam 0.25 mg PO DAILY PRN 03/14/13 Gabapentin [Neurontin] 300 mg PO QID 03/14/13 Metoprolol Tartrate [Lopressor] 25 mg PO BIDWM 03/14/13 OLANZapine [ZyPREXA] 15 mg PO QPM 03/14/13 Travoprost 0.004% Ophth Drops [Travatan Z] 1 drops EACHEYE QPM 03/14/13 Ascorbic Acid [Vitamin C] 500 mg PO BID 04/25/14 Ipratropium/Albuterol [Combivent Respimat] 1 puffs INH QID 05/27/14 Acetaminophen [Tylenol] 650 mg PO DAILY 06/17/19 Acetaminophen [Tylenol] 650 mg PO Q4H PRN 06/17/19 Aspirin Chewable [[place] Aspirin] 81 mg PO DAILY 06/17/19 Brimonidine Tartrate 1 drops EACHEYE BID 06/17/19 Enalapril Maleate 10 mg PO DAILY 06/17/19 Ferrous Gluconate [Iron] 240 mg PO DAILY 06/17/19 Insulin Glargine [Lantus Solostar] 38 unit SUBQ QPM 06/17/19 Levothyroxine [Synthroid] 75 mcg PO QDAC 06/17/19 Magnesium 250 mg PO DAILY 06/17/19 Metformin HCl 1,000 mg PO BIDWM 06/17/19 Multivitamin [Theragran] 1 tab PO DAILY 06/17/19 Simvastatin 40 mg PO QPM 06/17/19 clonazePAM [Clonazepam] 0.5 mg PO DAILY 06/17/19 oxyCODONE/ACET 5/325 [Percocet 5 mg/325 mg] 0.5 tab PO 0800,1200 06/17/19 oxyCODONE/ACET 5/325 [Percocet 5 mg/325 mg] 1 tab PO QPM 06/17/19 oxyCODONE/ACET 5/325 [Percocet 5 mg/325 mg] 2 tab PO Q6H PRN 06/17/19 Objective - Vital Signs/Intake & Output Vital Signs: Vital Signs x48h Temp Pulse Resp BP Pulse Ox 06/22/19 09:39 98 06/22/19 07:58 36.7 C 102 H 24 169/68 H 96 Intake & Output: Intake & Output 06/19/19 06/20/19 06/21/19 06/22/19 23:59 23:59 23:59 23:59 Intake Total 2057.042 3949.074 2791 460 Output Total 2725 2790 2425 1775 Balance -924.662 0863.074 366 -1315 - Objective General Appearance: positive: No acute distress, Alert. negative: Lethargic Eyes Bilateral: positive: Normal inspection, PERRL, No lid inflammation ENT: positive: ENT inspection nml, Pharynx nml, No signs of dehydration. negative: Purulent nasal drainage Neck: positive: Nml inspection, Thyroid nml, No JVD, Trachea midline. negative: Thyromegaly, Lymphadenopathy (R), Lymphadenopathy (L), Stiff neck, Tracheal deviation Respiratory: positive: Chest non-tender, Rales, Rhonchi. negative: Wheezes Cardiovascular: positive: Regular rate & rhythm, No murmur, No gallop, Tachycardia. negative: Irregularly irregular, Extrasystoles, Bradycardia, JVD present, Systolic murmur, Diastolic murmur Peripheral Pulses: 2+ Radial (R), 2+ Radial (L) Abdomen: positive: Non-tender, No organomegaly, Nml bowel sounds, No distention. negative: Tenderness, Guarding, Rebound Back: positive: Nml inspection. negative: CVA tenderness (R), CVA tenderness ( L) Skin: positive: Color nml, No rash, Warm, Dry. negative: Cyanosis, Diaphoresis, Pallor, Skin rash Extremities: positive: Non-tender, Nml appearance. negative: Calf tenderness, Vipul's sign/cords Neurologic/Psychiatric: positive: Sensation nml. negative: Weakness, Sensory loss, Facial droop, Slurred/abnml speech, Depressed mood/affect - Lab Results Fish Bones: 06/22/19 04:25 06/22/19 04:25 Other Labs: Lab Results x24hrs 06/22/19 06/22/19 06/22/19 Range/Units 09:15 09:15 09:15 WBC (4.8-10.8) x10^3/uL RBC (4.20-5.40) 10^6/uL Hgb (12.0-16.0) g/dL Hct (37.0-47.0) % MCV (81.0-99.0) fL MCH (27.0-31.0) pg MCHC (32.0-36.0) g/dL RDW (12.0-15.0) % Plt Count (130-450) 10^3/uL MPV (7.9-10.8) fL Reticulocyte % (Auto) (0.5-2.3) % Neut # (Auto) (1.5-6.6) 10^3/uL Lymph # (Auto) (1.5-3.5) 10^3/uL [place] # (Auto) (0.0-1.0) 10^3/uL Eos # (Auto) (0.0-0.7) 10^3/uL Baso # (Auto) (0.0-0.1) 10^3/uL Absolute Nucleated RBC x10^3/uL Nucleated RBC % /100WBC Absolute Retic (0.020-0.110) 10^6/uL Sodium (135-145) mmol/L Potassium (3.5-5.0) mmol/L Chloride (101-111) mmol/L Carbon Dioxide (21-32) mmol/L Anion Gap (6-13) BUN (6-20) mg/dL Creatinine (0.4-1.0) mg/dL Estimated GFR (MDRD) (>89) Glucose (70-100) mg/dL POC Whole Bld Glucose (70 - 100) mg/dL Glycated Hemoglobin (4.6-6.2) % Estim Average Glucose (70-100) Lactic Acid (0.5-2.2) mmol/L Calcium (8.5-10.3) mg/dL Phosphorus (2.5-4.6) mg/dL Magnesium (1.7-2.8) mg/dL Iron 24 L (28-170) ug/dL TIBC 196 L (250-450) ug/dL % Saturation 12 L (20-50) % Transferrin 140 L (192-382) mg/dL Ferritin 275.1 (11.0-306.8) ng/mL Lactate Dehydrogenase 260 H (91-225) IU/L Troponin I High Sens (2.3-14.8) ng/L C-Reactive Protein (0-1.0) mg/dL B-Natriuretic Peptide (5-100) pg/mL Vitamin B12 766 (180-914) pg/mL TSH (0.34-5.60) uIU/mL 06/22/19 06/22/19 06/22/19 Range/Units 09:15 09:15 08:02 WBC (4.8-10.8) x10^3/uL RBC 2.96 L (4.20-5.40) 10^6/uL Hgb (12.0-16.0) g/dL Hct (37.0-47.0) % MCV (81.0-99.0) fL MCH (27.0-31.0) pg MCHC (32.0-36.0) g/dL RDW (12.0-15.0) % Plt Count (130-450) 10^3/uL MPV (7.9-10.8) fL Reticulocyte % (Auto) 1.08 (0.5-2.3) % Neut # (Auto) (1.5-6.6) 10^3/uL Lymph # (Auto) (1.5-3.5) 10^3/uL [place] # (Auto) (0.0-1.0) 10^3/uL Eos # (Auto) (0.0-0.7) 10^3/uL Baso # (Auto) (0.0-0.1) 10^3/uL Absolute Nucleated RBC x10^3/uL Nucleated RBC % /100WBC Absolute Retic 0.032 (0.020-0.110) 10^6/uL Sodium (135-145) mmol/L Potassium (3.5-5.0) mmol/L Chloride (101-111) mmol/L Carbon Dioxide (21-32) mmol/L Anion Gap (6-13) BUN (6-20) mg/dL Creatinine (0.4-1.0) mg/dL Estimated GFR (MDRD) (>89) Glucose (70-100) mg/dL POC Whole Bld Glucose 176 H (70 - 100) mg/dL Glycated Hemoglobin (4.6-6.2) % Estim Average Glucose (70-100) Lactic Acid (0.5-2.2) mmol/L Calcium (8.5-10.3) mg/dL Phosphorus (2.5-4.6) mg/dL Magnesium (1.7-2.8) mg/dL Iron (28-170) ug/dL TIBC (250-450) ug/dL % Saturation (20-50) % Transferrin (192-382) mg/dL Ferritin (11.0-306.8) ng/mL Lactate Dehydrogenase (91-225) IU/L Troponin I High Sens 347.9 H* (2.3-14.8) ng/L C-Reactive Protein (0-1.0) mg/dL B-Natriuretic Peptide (5-100) pg/mL Vitamin B12 (180-914) pg/mL TSH (0.34-5.60) uIU/mL 06/22/19 06/22/19 06/22/19 Range/Units 04:25 04:25 04:25 WBC (4.8-10.8) x10^3/uL RBC (4.20-5.40) 10^6/uL Hgb (12.0-16.0) g/dL Hct (37.0-47.0) % MCV (81.0-99.0) fL MCH (27.0-31.0) pg MCHC (32.0-36.0) g/dL RDW (12.0-15.0) % Plt Count (130-450) 10^3/uL MPV (7.9-10.8) fL Reticulocyte % (Auto) (0.5-2.3) % Neut # (Auto) (1.5-6.6) 10^3/uL Lymph # (Auto) (1.5-3.5) 10^3/uL [place] # (Auto) (0.0-1.0) 10^3/uL Eos # (Auto) (0.0-0.7) 10^3/uL Baso # (Auto) (0.0-0.1) 10^3/uL Absolute Nucleated RBC x10^3/uL Nucleated RBC % /100WBC Absolute Retic (0.020-0.110) 10^6/uL Sodium (135-145) mmol/L Potassium (3.5-5.0) mmol/L Chloride (101-111) mmol/L Carbon Dioxide (21-32) mmol/L Anion Gap (6-13) BUN (6-20) mg/dL Creatinine (0.4-1.0) mg/dL Estimated GFR (MDRD) (>89) Glucose (70-100) mg/dL POC Whole Bld Glucose (70 - 100) mg/dL Glycated Hemoglobin (4.6-6.2) % Estim Average Glucose (70-100) Lactic Acid (0.5-2.2) mmol/L Calcium (8.5-10.3) mg/dL Phosphorus 1.7 L (2.5-4.6) mg/dL Magnesium 1.8 (1.7-2.8) mg/dL Iron (28-170) ug/dL TIBC (250-450) ug/dL % Saturation (20-50) % Transferrin (192-382) mg/dL Ferritin (11.0-306.8) ng/mL Lactate Dehydrogenase (91-225) IU/L Troponin I High Sens (2.3-14.8) ng/L C-Reactive Protein (0-1.0) mg/dL B-Natriuretic Peptide 340 H (5-100) pg/mL Vitamin B12 (180-914) pg/mL TSH 4.40 (0.34-5.60) uIU/mL 06/22/19 06/22/19 06/21/19 Range/Units 04:25 04:25 21:15 WBC 10.5 (4.8-10.8) x10^3/uL RBC 2.98 L (4.20-5.40) 10^6/uL Hgb 8.3 L (12.0-16.0) g/dL Hct 26.9 L (37.0-47.0) % MCV 90.3 (81.0-99.0) fL MCH 27.9 (27.0-31.0) pg MCHC 30.9 L (32.0-36.0) g/dL RDW 14.7 (12.0-15.0) % Plt Count 301 (130-450) 10^3/uL MPV 9.3 (7.9-10.8) fL Reticulocyte % (Auto) (0.5-2.3) % Neut # (Auto) 7.2 H (1.5-6.6) 10^3/uL Lymph # (Auto) 1.8 (1.5-3.5) 10^3/uL [place] # (Auto) 1.0 (0.0-1.0) 10^3/uL Eos # (Auto) 0.1 (0.0-0.7) 10^3/uL Baso # (Auto) 0.0 (0.0-0.1) 10^3/uL Absolute Nucleated RBC 0.02 x10^3/uL Nucleated RBC % 0.2 /100WBC Absolute Retic (0.020-0.110) 10^6/uL Sodium 136 (135-145) mmol/L Potassium 3.9 (3.5-5.0) mmol/L Chloride 109 (101-111) mmol/L Carbon Dioxide 19 L (21-32) mmol/L Anion Gap 8.0 (6-13) BUN 22 H (6-20) mg/dL Creatinine 0.9 (0.4-1.0) mg/dL Estimated GFR (MDRD) 61 L (>89) Glucose 206 H (70-100) mg/dL POC Whole Bld Glucose (70 - 100) mg/dL Glycated Hemoglobin (4.6-6.2) % Estim Average Glucose (70-100) Lactic Acid (0.5-2.2) mmol/L Calcium 8.3 L (8.5-10.3) mg/dL Phosphorus (2.5-4.6) mg/dL Magnesium (1.7-2.8) mg/dL Iron (28-170) ug/dL TIBC (250-450) ug/dL % Saturation (20-50) % Transferrin (192-382) mg/dL Ferritin (11.0-306.8) ng/mL Lactate Dehydrogenase (91-225) IU/L Troponin I High Sens 348.6 H* (2.3-14.8) ng/L C-Reactive Protein 11.7 H (0-1.0) mg/dL B-Natriuretic Peptide (5-100) pg/mL Vitamin B12 (180-914) pg/mL TSH (0.34-5.60) uIU/mL 06/21/19 06/21/19 06/21/19 Range/Units 20:33 16:55 14:27 WBC (4.8-10.8) x10^3/uL RBC (4.20-5.40) 10^6/uL Hgb (12.0-16.0) g/dL Hct (37.0-47.0) % MCV (81.0-99.0) fL MCH (27.0-31.0) pg MCHC (32.0-36.0) g/dL RDW (12.0-15.0) % Plt Count (130-450) 10^3/uL MPV (7.9-10.8) fL Reticulocyte % (Auto) (0.5-2.3) % Neut # (Auto) (1.5-6.6) 10^3/uL Lymph # (Auto) (1.5-3.5) 10^3/uL [place] # (Auto) (0.0-1.0) 10^3/uL Eos # (Auto) (0.0-0.7) 10^3/uL Baso # (Auto) (0.0-0.1) 10^3/uL Absolute Nucleated RBC x10^3/uL Nucleated RBC % /100WBC Absolute Retic (0.020-0.110) 10^6/uL Sodium (135-145) mmol/L Potassium (3.5-5.0) mmol/L Chloride (101-111) mmol/L Carbon Dioxide (21-32) mmol/L Anion Gap (6-13) BUN (6-20) mg/dL Creatinine (0.4-1.0) mg/dL Estimated GFR (MDRD) (>89) Glucose (70-100) mg/dL POC Whole Bld Glucose 282 H 287 H (70 - 100) mg/dL Glycated Hemoglobin 9.8 H (4.6-6.2) % Estim Average Glucose 235 H (70-100) Lactic Acid (0.5-2.2) mmol/L Calcium (8.5-10.3) mg/dL Phosphorus (2.5-4.6) mg/dL Magnesium (1.7-2.8) mg/dL Iron (28-170) ug/dL TIBC (250-450) ug/dL % Saturation (20-50) % Transferrin (192-382) mg/dL Ferritin (11.0-306.8) ng/mL Lactate Dehydrogenase (91-225) IU/L Troponin I High Sens (2.3-14.8) ng/L C-Reactive Protein (0-1.0) mg/dL B-Natriuretic Peptide (5-100) pg/mL Vitamin B12 (180-914) pg/mL TSH (0.34-5.60) uIU/mL 06/21/19 06/21/19 Range/Units 14:27 14:27 WBC (4.8-10.8) x10^3/uL RBC (4.20-5.40) 10^6/uL Hgb (12.0-16.0) g/dL Hct (37.0-47.0) % MCV (81.0-99.0) fL MCH (27.0-31.0) pg MCHC (32.0-36.0) g/dL RDW (12.0-15.0) % Plt Count (130-450) 10^3/uL MPV (7.9-10.8) fL Reticulocyte % (Auto) (0.5-2.3) % Neut # (Auto) (1.5-6.6) 10^3/uL Lymph # (Auto) (1.5-3.5) 10^3/uL [place] # (Auto) (0.0-1.0) 10^3/uL Eos # (Auto) (0.0-0.7) 10^3/uL Baso # (Auto) (0.0-0.1) 10^3/uL Absolute Nucleated RBC x10^3/uL Nucleated RBC % /100WBC Absolute Retic (0.020-0.110) 10^6/uL Sodium (135-145) mmol/L Potassium (3.5-5.0) mmol/L Chloride (101-111) mmol/L Carbon Dioxide (21-32) mmol/L Anion Gap (6-13) BUN (6-20) mg/dL Creatinine (0.4-1.0) mg/dL Estimated GFR (MDRD) (>89) Glucose (70-100) mg/dL POC Whole Bld Glucose (70 - 100) mg/dL Glycated Hemoglobin (4.6-6.2) % Estim Average Glucose (70-100) Lactic Acid 1.4 (0.5-2.2) mmol/L Calcium (8.5-10.3) mg/dL Phosphorus (2.5-4.6) mg/dL Magnesium (1.7-2.8) mg/dL Iron (28-170) ug/dL TIBC (250-450) ug/dL % Saturation (20-50) % Transferrin (192-382) mg/dL Ferritin (11.0-306.8) ng/mL Lactate Dehydrogenase (91-225) IU/L Troponin I High Sens 506.5 H* (2.3-14.8) ng/L C-Reactive Protein (0-1.0) mg/dL B-Natriuretic Peptide (5-100) pg/mL Vitamin B12 (180-914) pg/mL TSH (0.34-5.60) uIU/mL ABX Reporting Has patient been on IV antibiotics over the past 48 hours?: Yes Assessment/Plan - Problem List (1) Acute non-ST elevation myocardial infarction (NSTEMI) Impression: 06/21 improved. Troponin is down to 300 from 1000 on yesterday. Ordered ECHO, and pt had previous EKG. continue Aspirin and Lovenox on today continue tele and vital monitor increase Metoprolol and lisinopril dosage since pt has elevated BP 06/20 pt's troponin increase to 1039. pt had NSTEMI and shock, and she was sent to ICU, then she was d/c from ICU on yesterday. pt's shock was likely from over- medicated per previous provider's documentation. order Aspirin and Lovenox, order serial troponin continue tele, vital monitor closely, will transfer to ICU for high level care as medical condition needed (2) Pneumonia due to 2019 novel coronavirus Assessment/Plan: 06/21 pt has no fever or chill. per night provider report pt required O2 supplement on last night. CXR reveals increased bilateral interstitial opacities and bibasilar airspace opacities. But in the morning, pt did not require supple ment of O2, pt has 97% sats on room air. I tried to update to pt's family, but no one black pickler the phone, a message was left on. Continue empiric Hydroxychloroquin and isolation, closely monitor pt's respiratory status, since pt is full code and family requested incubation. At this time, pt's respiratory condition is stable now. continue empiric Hydroxychloroquin and isolation. 06/20 improved. pt has no fever, has 93% sats on room air, RR is 24, tachycardia is improving to HR 103 Continue O2 supplemental, empiric Hydroxychloroquin and isolation. (3) HCAP (healthcare-associated pneumonia) Assessment/Plan: 06/21 pt's WBC is down to the normal, we will continue Cefepime and Vancomycin. 06/20 pt has elevated WBC, and elevated lactic acid, pt had Covid 19 positive, HCAP secondary to virus lung infection is consideration. D/C doxycycle, add Vancomycin continue Cefepime (4) Respiratory failure with hypoxia Assessment/Plan: 06/21 pt is still not required O2 supplement yet, will continue antibiotics and Hydroxychloroquin, continue closely monitor pt's respiratory status. 06/20 pt is improved. has 93% sats on room air, HR is down 103. continue supplement of O2, continue anti-bacteremia and Hydroxychloroquin (5) Acute kidney injury superimposed on CKD Assessment/Plan: 06/21 improved and stable 06/20 Improved with iv hydration. Follow BMP daily. (6) COPD without exacerbation Assessment/Plan: 06/20 pt has not had wheezing and nebs and iv steroids are not advised to be used during a COVID pneumonia. If her home puffer can be brought in, would order its use. (7) Anemia 06/21 pt's HGB is 8.3, worsening. pt denies GI bleed. pt has poor appetite. anemia study indicate pt has iron deficiency also. pt is order iron continue lab monitor pt had a diagnosis of iron deficiency anemia, at admission, documented in the [facility] notes. Oral iron replacement can be started again. (8) DM type 2 (diabetes mellitus, type 2) Assessment/Plan: 06/21 resume home Lantus, continue SSI, ACHS and hypoglycemia protocol 06/20 pt has A1C 9.5, add pt's home Lantus in AM at 30 unit and increase SSI insulin dosage continue SSI, ACHS, and hypoglycemia protocol (9) Low back pain Assessment/Plan: 06/21 pt complain of lower back pain, pt has hx of chronic lower back pain, add oxycodone scheduled plus PRN [place] Oxycodone was on hold because of her shock and over-medicated, PRN [place] ordered. (10) Bipolar 1 disorder Assessment/Plan: continue pt's home meds (11) Hypothyroidism Assessment/Plan: 06/21 normal TSH, continue home thyroid meds will order TSH, continue Her thyroid meds can be resumed. (12) Dehydration Assessment/Plan: Resolved (13) poor appetite 06/21 pt present poor appetite, encourage pt eat. discuss with pt: good nutrition is critical important for her to recover from Covid 19 infection. pt state she understood. consult with trampoline team coach as well. nurse continue to feed for pt
[2019-06-22] MEDS: NEUTRA-PHOS 250 MG TABLET PO SCH ×2 (12:20→16:39)
[2019-06-22] MEDS: oxyCODONE 5 MG TABLET PO SCH ×2 (12:20→21:01)
[2019-06-22] MEDS: VANCOMYCIN INJ 1 GM, VANCOMYCIN INJ 500 MG in SODIUM CHLORIDE 0.9% 500 ML IV SCH (12:23)
[2019-06-22] MEDS: ACETAMINOPHEN 325 MG TABLET PO PRN ×2 (14:42→21:01)
[2019-06-22] MEDS ORDERED: lisinopriL 5 MG TABLET PO ONE (15:00)
[2019-06-22] MEDS: SACCHAROMYCES BOULARDII 250 MG CAPSULE PO SCH (16:39)
[2019-06-22] MEDS ORDERED: INSULIN ASPART 300 UNIT/3 ML PEN SUBQ ONE (18:24)
[2019-06-22] MEDS ORDERED: INSULIN REGULAR HUMAN 300 UNIT/3 ML VIAL SUBQ ONE (20:52)
[2019-06-22] MEDS ORDERED: ATORVASTATIN 40 MG TABLET PO SCH (21:00)
[2019-06-22] MEDS: OLANZapine ODT 5 MG TABLET TL SCH (21:01)
[2019-06-22] MEDS: LATANOPROST 0.005% OPHTH DROPS EACHEYE SCH (21:02)
[2019-06-23] MEDS: SODIUM CHLORIDE FLUSH 0.9% 10 ML SYRINGE IVP PRN ×2 (01:16→05:20)
[2019-06-23] MEDS: SODIUM CHLORIDE FLUSH 0.9% 10 ML SYRINGE IVP SCH ×2 (01:38→09:24)
[2019-06-23] MEDS: HYDROcod/ACETAM 10 MG/325 MG TABLET PO PRN ×2 (04:55→14:16)
[2019-06-23 05:18] LABS: BASOPHILS % (AUTO) 0.2 %; EOSINOPHILS % (AUTO) 1.4 %; HGB - HEMOGLOBIN 8.4 g/dL (12.0-16.0); LYMPHOCYTES % (AUTO) 20.2 %; MEAN CORPUSCULAR HEMOGLOBIN 28.9 pg (27.0-31.0); MEAN CORPUSCULAR HGB CONC 32.1 g/dL (32.0-36.0); MEAN PLATELET VOLUME 9.1 fL (7.9-10.8); MONOCYTES % (AUTO) 9.6 %; NEUTROPHILS % (AUTO) 63.4 %; PLT - PLATELET COUNT 342 10^3/uL (130-450); RED BLOOD COUNT 2.91 10^6/uL (4.20-5.40); RED CELL DISTRIBUTION WIDTH 14.5 % (12.0-15.0); WHITE BLOOD COUNT 9.9 x10^3/uL (4.8-10.8)
[2019-06-23] MEDS: CEFEPIME 2 GM in SODIUM CHLORIDE 0.9% MINIBAG 100 ML IV SCH (05:18)
[2019-06-23 05:25] LABS: ABNORMAL LYMPHS % (MANUAL) 0 %
[2019-06-23 05:44] LABS: BAND NEUTROPHILS % (MANUAL) 5 %; CALCIUM 8.4 mg/dL (8.5-10.3); CREATININE 0.9 mg/dL (0.4-1.0); CRP - C-REACTIVE PROTEIN 8.7 mg/dL (0-1.0); DIFFERENTIAL COMMENT MANUAL DIFFERENTIAL; LYMPHOCYTES # (MANUAL) 0.6 10^3/uL (1.5-3.5); LYMPHOCYTES % (MANUAL) 6 %; MONOCYTES # (MANUAL) 0.6 10^3/uL (0.0-1.0); PHOSPHORUS 2.2 mg/dL (2.5-4.6); PLATELET ESTIMATE, MANUAL NORMAL (130-450,000) (NORMAL); RBC MORPHOLOGY (MULTIPLE) NORMAL APPEARANCE (NORMAL)
[2019-06-23] MEDS: LEVOTHYROXINE 75 MCG TABLET PO SCH (06:13)
[2019-06-23] MEDS: GABAPENTIN 300 MG CAPSULE PO SCH (06:14)
[2019-06-23] MEDS ORDERED: INSULIN GLARGINE 300 UNIT/3 ML PEN SUBQ SCH ×2 (08:00→09:00)
[2019-06-23] MEDS ORDERED: NITROGLYCERIN SL 0.4 MG TABLET SL PRN (08:58)
[2019-06-23] MEDS ORDERED: SPIRONOLACTONE 25 MG TABLET PO SCH (09:00)
[2019-06-23] MEDS ORDERED: lisinopriL 20 MG TABLET PO SCH (09:00)
[2019-06-23] MEDS ORDERED: DOCUSATE SODIUM 250 MG CAPSULE PO SCH (09:00)
[2019-06-23] MEDS ORDERED: SENNA 8.6 MG TABLET PO SCH (09:00)
[2019-06-23] MEDS: FERROUS GLUCONATE 324 MG TABLET PO SCH (09:13)
[2019-06-23] MEDS: NEUTRA-PHOS 250 MG TABLET PO SCH ×2 (09:13→12:10)
[2019-06-23] MEDS: polyethylene glycoL 3350 17 GM PACKET PO SCH (09:14)
[2019-06-23] MEDS: ASPIRIN 325 MG TABLET PO SCH (09:14)
[2019-06-23] MEDS: clonazePAM 0.5 MG TABLET PO SCH (09:14)
[2019-06-23] MEDS: HYDROXYCHLOROQUINE 200 MG TABLET NG SCH (09:14)
[2019-06-23] MEDS: ENOXAPARIN 60 MG/0.6 ML SYRINGE SUBQ SCH (09:15)
[2019-06-23] MEDS: SACCHAROMYCES BOULARDII 250 MG CAPSULE PO SCH (09:15)
[2019-06-23] MEDS: LATANOPROST 0.005% OPHTH DROPS EACHEYE SCH (09:15)
[2019-06-23] MEDS: INSULIN ASPART 300 UNIT/3 ML PEN SUBQ SCH ×2 (09:23→11:59)
[2019-06-23] MEDS: BRIMONIDINE 0.15% OPHTH DROPS 5 ML EACHEYE SCH (09:23)
[2019-06-23 09:55] LABS: INR 1.3 (0.8-1.2); PT - PROTHROMBIN TIME 14.4 secs (9.9-12.6)
[2019-06-23] MEDS: oxyCODONE 5 MG TABLET PO SCH (09:58)
[2019-06-23] MEDS: METOPROLOL SUCCINATE 25 MG TABLET PO SCH (09:58)
--- NOTE | 2019-06-23 11:54 | DISCHARGE SUMMARY ---
Discharge Summary Admit Date: 06/17/19 Discharge Date: 06/23/19 Discharging Provider: Larry Davies Primary Care Provider: Tate Blackman Condition at Discharge: Stable Discharge Facility Name: [facility] - DIAGNOSES Admission Diagnoses: (1) Pneumonia due to 2019 novel coronavirus (2) HCAP (healthcare-associated pneumonia) (3) Respiratory failure with hypoxia (4) COPD without exacerbation (5) Transient hypotension (6) Dehydration (7) Acute kidney injury (8) Anemia (9) DM type 2 (diabetes mellitus, type 2) (10) Low back pain (11) Bipolar 1 disorder (12) Hypothyroidism (13) Constipation Discharge Diagnoses with Status of Each Condition: (1) Acute non-ST elevation myocardial infarction (NSTEMI) pt complaint chest pain in morning, now she is better. EKG reveals novel multiple leads ST depressions and elevated Troponin. pt was given Lovenox and Aspirin. ECHO reveals 30-35% EF. Called Dr. Sun Freight And Passenger Agent and Dr. Vera, hospitalist, both accepted in [facility] in [place]. pt will be transferred for high level of care. (2) Pneumonia due to 2019 novel coronavirus Improved. pt has no fever, and now she has 94-97% sat on room air. pt was di agnosis Covid 19 positive in [facility] one week ago. (3) HCAP (healthcare-associated pneumonia) pt's WBC became normal now from previous elevated. pt was treated with anti biotics Cefepime and Vancomycin (4) Respiratory failure with hypoxia Improved/resolve, she has 94-97% sat on room air without respiratory distress (5) Acute kidney injury superimposed on CKD resolved (6) COPD without exacerbation stable (7) Anemia stable (8) DM type 2 (diabetes mellitus, type 2) stable. A1C 9.5 (9) Low back pain chronic/stable (10) Bipolar 1 disorder chronic/stable (11) Hypothyroidism chronic/stable (12) Dehydration resolved (13) poor appetite improved - HPI History of Present Illness: pt was admitted for respiratory failure with hypoxia. pt was diagnosis of Covid 19 positive in [facility]. pt has hx of DM2, COPD, bipolar disorder, chronic anemia, HTN, hypothyroidism, and glaucoma. pt present ER with 87% sats on room air with shortness of breath, and hypotension. CXR reveals no infiltrates. pt is required supplement of O2 to remain her sats. pt is full code. - HOSPITAL COURSE Hospital Course: pt present ER with 87% sats on room air with shortness of breath, and hypotension. pt also was found MALCOLM and dehydration. pt require O2 supplement and IVF. pt has elevated WBC. pt also was treated with antibiotics for HCAP. pt has no fever and gradually pt has not required to have supplement of O2 and without respiratory distress. pt also was treated with hydroxychloroquine for Covid 19. pt developed cardiac distress with chest pain. EKG reveals novel multiple leads ST depressions and elevated Troponin. pt was given Lovenox and Aspirin. ECHO reveals 30-35% EF. lead software tester and hospitalist was called and pt was accepted for high level care at [facility]. Thank both Dr. Padilla and Dr. Sun to accept pt. The detail hospital course is as the below. (1) Acute non-ST elevation myocardial infarction (NSTEMI) pt complaint chest pain in morning, now she is better. EKG reveals novel multiple leads ST depressions and elevated Troponin. pt was given Lovenox and Aspirin. ECHO reveals 30-35% EF. Called Dr. Sun Freight And Passenger Agent and Dr. Vera, hospitalist, both accepted in [facility] in [place]. pt will be transferred for high level of care. (2) Pneumonia due to 2019 novel coronavirus Improved. pt has no fever, and now she has 94-97% sat on room air. pt was di agnosis Covid 19 positive in [facility] one week ago. (3) HCAP (healthcare-associated pneumonia) pt's WBC became normal now from previous elevated. pt was treated with anti biotics Cefepime and Vancomycin (4) Respiratory failure with hypoxia Improved/resolve, she has 94-97% sat on room air without respiratory distress (5) Acute kidney injury superimposed on CKD resolved (6) COPD without exacerbation stable (7) Anemia stable (8) DM type 2 (diabetes mellitus, type 2) stable. A1C 9.5 (9) Low back pain chronic/stable (10) Bipolar 1 disorder chronic/stable (11) Hypothyroidism chronic/stable (12) Dehydration resolved (13) poor appetite improved - ALLERGIES Allergies/Adverse Reactions: Allergies Allergy/AdvReac Type Severity Reaction Status Date / Time No Known Drug Allergies Allergy Verified 03/27/20 11:20 - MEDICATIONS Home Medications: Ambulatory Orders Medication Instructions Recorded Confirmed Clonazepam 0.25 mg PO DAILY PRN 03/14/13 06/17/19 Gabapentin [Neurontin] 300 mg PO QID 03/14/13 06/17/19 Metoprolol Tartrate [Lopressor] 25 mg PO BIDWM 03/14/13 06/17/19 OLANZapine [ZyPREXA] 15 mg PO QPM 03/14/13 06/17/19 Travoprost 0.004% Ophth Drops 1 drops EACHEYE QPM 03/14/13 06/17/19 [Travatan Z] Ascorbic Acid [Vitamin C] 500 mg PO BID 04/25/14 06/17/19 Ipratropium/Albuterol [Combivent 1 puffs INH QID 05/27/14 06/17/19 Respimat] Acetaminophen [Tylenol] 650 mg PO DAILY 06/17/19 06/17/19 Acetaminophen [Tylenol] 650 mg PO Q4H PRN 06/17/19 06/17/19 Aspirin Chewable [St Cricket 81 mg PO DAILY 06/17/19 06/17/19 Aspirin] Brimonidine Tartrate 1 drops EACHEYE BID 06/17/19 06/17/19 Enalapril Maleate 10 mg PO DAILY 06/17/19 06/17/19 Ferrous Gluconate [Iron] 240 mg PO DAILY 06/17/19 06/17/19 Insulin Glargine [Lantus Solostar] 38 unit SUBQ QPM 06/17/19 06/17/19 Levothyroxine [Synthroid] 75 mcg PO QDAC 06/17/19 06/17/19 Magnesium 250 mg PO DAILY 06/17/19 06/17/19 Metformin HCl 1,000 mg PO BIDWM 06/17/19 06/17/19 Multivitamin [Theragran] 1 tab PO DAILY 06/17/19 06/17/19 Simvastatin 40 mg PO QPM 06/17/19 06/17/19 clonazePAM [Clonazepam] 0.5 mg PO DAILY 06/17/19 06/17/19 oxyCODONE/ACET 5/325 [Percocet 5 0.5 tab PO 0800,1200 06/17/19 06/17/19 mg/325 mg] oxyCODONE/ACET 5/325 [Percocet 5 1 tab PO QPM 06/17/19 06/17/19 mg/325 mg] oxyCODONE/ACET 5/325 [Percocet 5 2 tab PO Q6H PRN 06/17/19 06/17/19 mg/325 mg] - PHYSICAL EXAM AT DISCHARGE General Appearance: positive: Alert, Mild distress. negative: Lethargic Eyes Bilateral: positive: Normal inspection, PERRL, No lid inflammation ENT: positive: ENT inspection nml, Pharynx nml, No signs of dehydration. negative: Purulent nasal drainage Neck: positive: Nml inspection, Thyroid nml, No JVD. negative: Trachea midline, Thyromegaly, Lymphadenopathy (R), Lymphadenopathy (L), Stiff neck, Tracheal deviation Respiratory: positive: Chest non-tender, No respiratory distress, Rhonchi. negative: Breath sounds nml, Wheezes, Rales Cardiovascular: positive: Regular rate & rhythm, No murmur, No gallop. negative: Irregularly irregular, Extrasystoles, Tachycardia, Bradycardia, JVD present, Systolic murmur, Diastolic murmur Peripheral Pulses: positive: 2+ Abdomen: positive: Non-tender, No organomegaly, Nml bowel sounds, No distention. negative: Tenderness, Guarding, Rebound Back: positive: Nml inspection Skin: positive: Color nml, No rash, Warm, Dry. negative: Cyanosis, Diaphoresis, Pallor Extremities: positive: Non-tender, Nml appearance. negative: Calf tenderness Neurologic/Psychiatric: positive: Oriented x3, Sensation nml. negative: Weakness, Sensory loss, Facial droop, Slurred/abnml speech, Depressed mood/affect - LABS Result Diagrams: 06/23/19 05:02 06/23/19 05:02 - FOLLOW UP Follow Up: pt was accepted for high level care at [facility] - TIME SPENT Time Spent in Discharge (Minutes): 40
[2019-06-23] MEDS ORDERED: INSULIN ASPART 300 UNIT/3 ML PEN SUBQ ONE (12:02)
[2019-06-23 14:11] VITALS: BP 173/70
== END 2019-06-23 14:20 | disposition short-term general hospital (02) | DRG 193 ==
LOC: EDBD → EDUNIT# → ED 11:12 → MS2 12:54 → ICU 06-19 15:48 → MS2 06-20 14:00
PROVIDERS: ADMIT Internal Medicine; ATTEND Nurse Practitioner Gerontology
PROC: 02H633Z Insertion of Infusion Device into Right Atrium, Percutaneous Approach (ICD-10-PCS; principal; 2019-06-19)
DX: J12.89 Other viral pneumonia (principal); J96.91 Respiratory failure, unspecified with hypoxia; I21.4 Non-ST elevation (NSTEMI) myocardial infarction; R40.20 Unspecified coma; R09.02 Hypoxemia; R57.9 Shock, unspecified; I10 Essential (primary) hypertension; E11.9 Type 2 diabetes mellitus without complications; N17.9 Acute kidney failure, unspecified; E78.00 Pure hypercholesterolemia, unspecified; E87.1 Hypo-osmolality and hyponatremia; I13.0 Hypertensive heart and chronic kidney disease with heart failure and stage 1 through stage 4 chronic kidney disease, or unspecified chronic kidney disease; I50.20 Unspecified systolic (congestive) heart failure; E11.22 Type 2 diabetes mellitus with diabetic chronic kidney disease; N18.9 Chronic kidney disease, unspecified; B97.29 Other coronavirus as the cause of diseases classified elsewhere; E86.0 Dehydration; J44.9 Chronic obstructive pulmonary disease, unspecified; D50.9 Iron deficiency anemia, unspecified; E03.9 Hypothyroidism, unspecified; F31.9 Bipolar disorder, unspecified; F41.9 Anxiety disorder, unspecified; R63.0 Anorexia; Z68.23 Body mass index [BMI] 23.0-23.9, adult; R32 Unspecified urinary incontinence; K59.00 Constipation, unspecified; H40.9 Unspecified glaucoma; G89.29 Other chronic pain; M54.5 Low back pain; M85.80 Other specified disorders of bone density and structure, unspecified site; Y95 Nosocomial condition; Z79.82 Long term (current) use of aspirin; Z79.4 Long term (current) use of insulin; Z79.891 Long term (current) use of opiate analgesic; Z85.828 Personal history of other malignant neoplasm of skin
CPT/HCPCS: 36415; 70450; 71045; 80048; 80053; 81003; 82570; 82607; 82728; 83036; 83540; 83605; 83615; 83690; 83735; 83880; 84100; 84133; 84300; 84443; 84466; 84484; 85025; 85045; 85610; 86140; 87150; 93005; 93306; 94640; 99284; 99285; A9270; J0131; J1650; J1815; J3370; 81001; 87086

== ENCOUNTER 2019-06-23 14:22 | Outpatient (CLI) | payer MEDICARE, MEDICAID | END 2019-06-23 14:23 | disposition short-term general hospital (02) | LOC: EMS 14:22 | PROVIDERS: ATTEND Surgery | DX: I21.4 Non-ST elevation (NSTEMI) myocardial infarction (principal); U07.1 COVID-19 | CPT/HCPCS: A0425; A0426 ==

== ENCOUNTER 2019-07-08 18:00 | Outpatient (CLI) | payer MEDICARE, MEDICAID ==
[2019-07-08 18:42] LABS: BASOPHILS # (AUTO) 0.1 10^3/uL (0.0-0.1); BASOPHILS % (AUTO) 0.4 %; EOSINOPHILS # (AUTO) 0.2 10^3/uL (0.0-0.7); EOSINOPHILS % (AUTO) 1.4 %; HGB - HEMOGLOBIN 9.3 g/dL (12.0-16.0); LYMPHOCYTES # (AUTO) 2.5 10^3/uL (1.5-3.5); LYMPHOCYTES % (AUTO) 19.6 %; MEAN CORPUSCULAR HEMOGLOBIN 28.2 pg (27.0-31.0); MEAN CORPUSCULAR HGB CONC 30.7 g/dL (32.0-36.0); MEAN CORPUSCULAR VOLUME 91.8 fL (81.0-99.0); MEAN PLATELET VOLUME 9.2 fL (7.9-10.8); MONOCYTES # (AUTO) 1.2 10^3/uL (0.0-1.0); NEUTROPHILS # (AUTO) 8.9 10^3/uL (1.5-6.6); NEUTROPHILS % (AUTO) 68.6 %; PLT - PLATELET COUNT 396 10^3/uL (130-450); RED CELL DISTRIBUTION WIDTH 15.9 % (12.0-15.0)
[2019-07-08 18:54] LABS: ALBUMIN/GLOBULIN RATIO 0.8 (1.0-2.2); BILIRUBIN,TOTAL 0.6 mg/dL (0.2-1.0); CREATININE 1.1 mg/dL (0.4-1.0); TOTAL PROTEIN 6.8 g/dL (6.7-8.2)
== END 2019-07-08 23:59 | disposition home or self-care (01) ==
LOC: LAB.R 18:00
DX: D64.9 Anemia, unspecified (principal); E11.9 Type 2 diabetes mellitus without complications
CPT/HCPCS: 80053; 85025

== ENCOUNTER 2019-08-08 21:40 | Outpatient (CLI) | payer MEDICARE, MEDICAID ==
[2019-08-08 22:43] LABS: BASOPHILS # (AUTO) 0.1 10^3/uL (0.0-0.1); BASOPHILS % (AUTO) 0.5 %; EOSINOPHILS # (AUTO) 0.2 10^3/uL (0.0-0.7); EOSINOPHILS % (AUTO) 1.2 %; HGB - HEMOGLOBIN 9.6 g/dL (12.0-16.0); LYMPHOCYTES # (AUTO) 3.2 10^3/uL (1.5-3.5); LYMPHOCYTES % (AUTO) 24.4 %; MEAN CORPUSCULAR HEMOGLOBIN 28.8 pg (27.0-31.0); MEAN CORPUSCULAR HGB CONC 32.4 g/dL (32.0-36.0); MEAN CORPUSCULAR VOLUME 88.9 fL (81.0-99.0); MEAN PLATELET VOLUME 9.2 fL (7.9-10.8); MONOCYTES # (AUTO) 1.1 10^3/uL (0.0-1.0); MONOCYTES % (AUTO) 8.1 %; NEUTROPHILS # (AUTO) 8.5 10^3/uL (1.5-6.6); PLT - PLATELET COUNT 369 10^3/uL (130-450); RED BLOOD COUNT 3.33 10^6/uL (4.20-5.40); RED CELL DISTRIBUTION WIDTH 15.1 % (12.0-15.0)
[2019-08-08 22:47] LABS: CREATININE 1.2 mg/dL (0.4-1.0)
== END 2019-08-08 23:59 | disposition home or self-care (01) ==
LOC: EMS 21:40
DX: D64.9 Anemia, unspecified (principal); E11.9 Type 2 diabetes mellitus without complications
CPT/HCPCS: 80048; 82728; 85025

== ENCOUNTER 2019-08-18 07:00 | Outpatient (CLI) | payer MEDICARE, MEDICAID | END 2019-08-18 23:59 | disposition home or self-care (01) | LOC: LAB.R 07:00 | PROVIDERS: ATTEND Family Medicine | DX: E87.1 Hypo-osmolality and hyponatremia (principal) | CPT/HCPCS: 84295 ==

== ENCOUNTER 2019-09-17 15:40 | Outpatient (CLI) | payer MEDICARE, MEDICAID ==
[2019-09-17 17:09] LABS: CHOL/HDL RATIO 2.6 (<4.4); CHOLESTEROL 92 mg/dL; HDL CHOLESTEROL 35 mg/dL; LDL CHOLESTEROL,CALCULATED 13 mg/dL; LDL/HDL RATIO 0.4 (<4.4); VLDL CHOLESTEROL 44 mg/dL
== END 2019-09-17 23:59 | disposition home or self-care (01) ==
LOC: LAB.R 15:40
PROVIDERS: ATTEND Family Medicine
DX: E78.5 Hyperlipidemia, unspecified (principal)
CPT/HCPCS: 80061; 83721

== ENCOUNTER 2020-05-11 08:00 | Outpatient (CLI) | payer MEDICARE, MEDICAID ==
[2020-05-11 12:25] LABS: BASOPHILS % (AUTO) 0.4 %; EOSINOPHILS # (AUTO) 0.2 10^3/uL (0.0-0.7); EOSINOPHILS % (AUTO) 1.7 %; HGB - HEMOGLOBIN 10.1 g/dL (12.0-16.0); LYMPHOCYTES # (AUTO) 2.9 10^3/uL (1.5-3.5); LYMPHOCYTES % (AUTO) 30.3 %; MEAN CORPUSCULAR HEMOGLOBIN 28.8 pg (27.0-31.0); MEAN CORPUSCULAR HGB CONC 30.6 g/dL (32.0-36.0); MEAN PLATELET VOLUME 9.3 fL (7.9-10.8); MONOCYTES # (AUTO) 0.7 10^3/uL (0.0-1.0); MONOCYTES % (AUTO) 7.7 %; NEUTROPHILS # (AUTO) 5.6 10^3/uL (1.5-6.6); NEUTROPHILS % (AUTO) 58.9 %; PLT - PLATELET COUNT 323 10^3/uL (130-450); RED BLOOD COUNT 3.51 10^6/uL (4.20-5.40); WHITE BLOOD COUNT 9.4 x10^3/uL (4.8-10.8)
[2020-05-11 12:59] LABS: ALBUMIN 3.5 g/dL (3.2-5.5); ALBUMIN/GLOBULIN RATIO 1.1 (1.0-2.2); BILIRUBIN,TOTAL 0.2 mg/dL (0.2-1.0); CALCIUM 9.9 mg/dL (8.5-10.3); CREATININE 0.8 mg/dL (0.4-1.0); TOTAL PROTEIN 6.7 g/dL (6.7-8.2)
== END 2020-05-11 23:59 | disposition home or self-care (01) ==
LOC: LAB.R 08:00
DX: E78.5 Hyperlipidemia, unspecified (principal); D50.9 Iron deficiency anemia, unspecified
CPT/HCPCS: 80053; 85025

== ENCOUNTER 2020-09-17 16:20 | Outpatient (CLI) | payer MEDICARE, MEDICAID ==
[2020-09-17 17:01] LABS: BILIRUBIN,URINE NEGATIVE (NEGATIVE); GLUCOSE, URINE (UA) NEGATIVE (NEGATIVE); KETONES,URINE (UA) NEGATIVE (NEGATIVE); LEUKOCYTE ESTERASE, URINE LARGE (NEGATIVE); NITRITE,URINE POSITIVE (NEGATIVE); OCCULT BLOOD,URINE SMALL (NEGATIVE); PROTEIN,URINE TRACE mg/dL (NEGATIVE); UROBILINOGEN,URINE 0.2 (NORMAL) E.U./dL (NORMAL)
[2020-09-17 17:04] LABS: CLARITY,URINE CLOUDY (CLEAR)
[2020-09-17 17:11] LABS: AMORPHOUS SEDIMENT,UR Marked /LPF; BACTERIA,URINE Many /HPF (None Seen); SQUAMOUS EPITHELIAL CELL,UR NONE SEEN (<= Few)
== END 2020-09-17 23:59 | disposition home or self-care (01) ==
LOC: LAB.R 16:20
PROVIDERS: ATTEND Family Medicine
DX: R46.89 Other symptoms and signs involving appearance and behavior (principal)
CPT/HCPCS: 81001; 87086

== ENCOUNTER 2020-09-19 07:00 | Outpatient (CLI) | payer MEDICARE, MEDICAID ==
[2020-09-19 16:22] LABS: BILIRUBIN,URINE NEGATIVE (NEGATIVE); CLARITY,URINE SL. CLOUDY (CLEAR); GLUCOSE, URINE (UA) NEGATIVE (NEGATIVE); KETONES,URINE (UA) NEGATIVE (NEGATIVE); LEUKOCYTE ESTERASE, URINE MODERATE (NEGATIVE); NITRITE,URINE NEGATIVE (NEGATIVE); OCCULT BLOOD,URINE TRACE-INTA (NEGATIVE); PH,URINE 5.5 PH (5.0-7.5); PROTEIN,URINE TRACE mg/dL (NEGATIVE); UROBILINOGEN,URINE 0.2 (NORMAL) E.U./dL (NORMAL)
[2020-09-19 16:29] LABS: BACTERIA,URINE Many /HPF (None Seen); MUCUS,URINE Few Strands; RBC,URINE 0-5 /HPF (0-5); SQUAMOUS EPITHELIAL CELL,UR FEW Squamous (<= Few); WBC,URINE >25 /HPF (0-5)
== END 2020-09-19 23:59 | disposition home or self-care (01) ==
LOC: LAB.R 07:00
DX: N39.3 Stress incontinence (female) (male) (principal); N31.9 Neuromuscular dysfunction of bladder, unspecified; N18.9 Chronic kidney disease, unspecified
CPT/HCPCS: 81001; 81003; 87077; 87086; 87181

== ENCOUNTER 2020-09-21 18:50 | Outpatient (CLI) | payer MEDICARE, MEDICAID ==
[2020-09-21 20:18] LABS: BASOPHILS # (AUTO) 0.1 10^3/uL (0.0-0.1); BASOPHILS % (AUTO) 0.5 %; EOSINOPHILS # (AUTO) 0.2 10^3/uL (0.0-0.7); EOSINOPHILS % (AUTO) 1.6 %; HCT - HEMATOCRIT 30.4 % (37.0-47.0); HGB - HEMOGLOBIN 9.7 g/dL (12.0-16.0); LYMPHOCYTES # (AUTO) 3.2 10^3/uL (1.5-3.5); LYMPHOCYTES % (AUTO) 30.5 %; MEAN CORPUSCULAR HEMOGLOBIN 29.3 pg (27.0-31.0); MEAN CORPUSCULAR HGB CONC 31.9 g/dL (32.0-36.0); MEAN CORPUSCULAR VOLUME 91.8 fL (81.0-99.0); MEAN PLATELET VOLUME 9.4 fL (7.9-10.8); MONOCYTES # (AUTO) 0.8 10^3/uL (0.0-1.0); MONOCYTES % (AUTO) 7.3 %; NEUTROPHILS # (AUTO) 6.2 10^3/uL (1.5-6.6); NEUTROPHILS % (AUTO) 59.2 %; PLT - PLATELET COUNT 390 10^3/uL (130-450); RED BLOOD COUNT 3.31 10^6/uL (4.20-5.40); RED CELL DISTRIBUTION WIDTH 15.2 % (12.0-15.0); WHITE BLOOD COUNT 10.5 x10^3/uL (4.8-10.8)
[2020-09-21 20:27] LABS: ALBUMIN 3.5 g/dL (3.2-5.5); ALBUMIN/GLOBULIN RATIO 1.1 (1.0-2.2); BILIRUBIN,TOTAL 0.4 mg/dL (0.2-1.0); CALCIUM 9.1 mg/dL (8.5-10.3); CREATININE 0.9 mg/dL (0.4-1.0); POTASSIUM 4.7 mmol/L (3.5-5.0); TOTAL PROTEIN 6.7 g/dL (6.7-8.2)
== END 2020-09-21 23:59 | disposition home or self-care (01) ==
LOC: LAB.R 18:50
DX: N18.9 Chronic kidney disease, unspecified (principal); E78.5 Hyperlipidemia, unspecified; I50.20 Unspecified systolic (congestive) heart failure; D50.9 Iron deficiency anemia, unspecified
CPT/HCPCS: 80053; 85025

== ENCOUNTER 2020-09-24 07:50 | Outpatient (CLI) | payer MEDICARE, MEDICAID | END 2020-09-24 07:51 | disposition EMS.NT | LOC: EMS 07:50 | DX: R46.89 Other symptoms and signs involving appearance and behavior (principal) ==

== ENCOUNTER 2020-12-19 08:00 | Outpatient (CLI) | payer MEDICARE, MEDICAID ==
[2020-12-19 20:40] LABS: BASOPHILS # (AUTO) 0.1 10^3/uL (0.0-0.1); BASOPHILS % (AUTO) 0.4 %; EOSINOPHILS # (AUTO) 0.2 10^3/uL (0.0-0.7); EOSINOPHILS % (AUTO) 1.1 %; HCT - HEMATOCRIT 28.9 % (37.0-47.0); HGB - HEMOGLOBIN 8.6 g/dL (12.0-16.0); LYMPHOCYTES # (AUTO) 2.3 10^3/uL (1.5-3.5); LYMPHOCYTES % (AUTO) 16.4 %; MEAN CORPUSCULAR HEMOGLOBIN 27.7 pg (27.0-31.0); MEAN CORPUSCULAR HGB CONC 29.8 g/dL (32.0-36.0); MEAN CORPUSCULAR VOLUME 93.2 fL (81.0-99.0); MONOCYTES # (AUTO) 0.8 10^3/uL (0.0-1.0); MONOCYTES % (AUTO) 5.7 %; NEUTROPHILS # (AUTO) 10.6 10^3/uL (1.5-6.6); NEUTROPHILS % (AUTO) 75.3 %; PLT - PLATELET COUNT 422 10^3/uL (130-450); RED CELL DISTRIBUTION WIDTH 15.8 % (12.0-15.0); WHITE BLOOD COUNT 14.1 x10^3/uL (4.8-10.8)
[2020-12-19 20:56] LABS: CALCIUM 9.6 mg/dL (8.5-10.3); CREATININE 0.9 mg/dL (0.4-1.0); POTASSIUM 4.5 mmol/L (3.5-5.0)
[2020-12-19 21:46] LABS: ESTIMATED AVERAGE GLUCOSE 166 mg/dL (70-100); HEMOGLOBIN A1c% 7.4 % (4.27-6.07)
== END 2020-12-19 23:59 | disposition home or self-care (01) ==
LOC: LAB.R 08:00
PROVIDERS: ATTEND Family Medicine
DX: E11.42 Type 2 diabetes mellitus with diabetic polyneuropathy (principal); E11.22 Type 2 diabetes mellitus with diabetic chronic kidney disease; N18.9 Chronic kidney disease, unspecified
CPT/HCPCS: 80048; 83036; 85025

== ENCOUNTER 2020-12-21 08:00 | Outpatient (CLI) | payer MEDICARE, MEDICAID ==
[2020-12-21 13:07] LABS: BASOPHILS % (AUTO) 0.4 %; EOSINOPHILS # (AUTO) 0.2 10^3/uL (0.0-0.7); EOSINOPHILS % (AUTO) 2.1 %; HCT - HEMATOCRIT 28.5 % (37.0-47.0); HGB - HEMOGLOBIN 8.7 g/dL (12.0-16.0); LYMPHOCYTES # (AUTO) 2.8 10^3/uL (1.5-3.5); LYMPHOCYTES % (AUTO) 28.2 %; MEAN CORPUSCULAR HEMOGLOBIN 28.5 pg (27.0-31.0); MEAN CORPUSCULAR HGB CONC 30.5 g/dL (32.0-36.0); MEAN CORPUSCULAR VOLUME 93.4 fL (81.0-99.0); MEAN PLATELET VOLUME 9.2 fL (7.9-10.8); MONOCYTES # (AUTO) 0.9 10^3/uL (0.0-1.0); MONOCYTES % (AUTO) 9.5 %; NEUTROPHILS # (AUTO) 5.8 10^3/uL (1.5-6.6); NEUTROPHILS % (AUTO) 58.3 %; PLT - PLATELET COUNT 347 10^3/uL (130-450); RED BLOOD COUNT 3.05 10^6/uL (4.20-5.40); RED CELL DISTRIBUTION WIDTH 16.1 % (12.0-15.0); RETICULOCYTE COUNT % (AUTO) 2.28 % (0.5-2.3); WHITE BLOOD COUNT 9.9 x10^3/uL (4.8-10.8)
== END 2020-12-21 23:59 | disposition home or self-care (01) ==
LOC: LAB.R 08:00
PROVIDERS: ATTEND Family Medicine
DX: E86.0 Dehydration (principal); D50.9 Iron deficiency anemia, unspecified; D64.9 Anemia, unspecified; E56.9 Vitamin deficiency, unspecified; E78.5 Hyperlipidemia, unspecified
CPT/HCPCS: 82728; 85025; 85045

== ENCOUNTER 2021-01-08 09:51 | Outpatient (CLI) | payer MEDICARE, MEDICAID ==
[2021-01-08 09:56] LABS: BASOPHILS # (AUTO) 0.1 10^3/uL (0.0-0.1); BASOPHILS % (AUTO) 0.5 %; EOSINOPHILS # (AUTO) 0.3 10^3/uL (0.0-0.7); EOSINOPHILS % (AUTO) 2.6 %; HCT - HEMATOCRIT 28.9 % (37.0-47.0); HGB - HEMOGLOBIN 8.9 g/dL (12.0-16.0); LYMPHOCYTES # (AUTO) 3.7 10^3/uL (1.5-3.5); LYMPHOCYTES % (AUTO) 33.8 %; MEAN CORPUSCULAR HEMOGLOBIN 28.3 pg (27.0-31.0); MEAN CORPUSCULAR HGB CONC 30.8 g/dL (32.0-36.0); MEAN PLATELET VOLUME 9.5 fL (7.9-10.8); MONOCYTES # (AUTO) 0.9 10^3/uL (0.0-1.0); MONOCYTES % (AUTO) 8.5 %; NEUTROPHILS # (AUTO) 5.7 10^3/uL (1.5-6.6); NEUTROPHILS % (AUTO) 52.2 %; PLT - PLATELET COUNT 349 10^3/uL (130-450); RED BLOOD COUNT 3.14 10^6/uL (4.20-5.40); RED CELL DISTRIBUTION WIDTH 16.2 % (12.0-15.0)
== END 2021-01-08 09:52 | disposition home or self-care (01) ==
LOC: LAB.R 09:51
PROVIDERS: ATTEND Family Medicine
DX: D50.9 Iron deficiency anemia, unspecified (principal)
CPT/HCPCS: 85025

== ENCOUNTER 2021-04-10 14:44 | Outpatient (CLI) | payer MEDICARE, MEDICAID ==
[2021-04-10 14:56] LABS: BASOPHILS # (AUTO) 0.1 10^3/uL (0.0-0.1); BASOPHILS % (AUTO) 0.5 %; EOSINOPHILS # (AUTO) 0.2 10^3/uL (0.0-0.7); EOSINOPHILS % (AUTO) 1.9 %; HCT - HEMATOCRIT 29.1 % (37.0-47.0); HGB - HEMOGLOBIN 8.8 g/dL (12.0-16.0); LYMPHOCYTES % (AUTO) 28.8 %; MEAN CORPUSCULAR HEMOGLOBIN 27.4 pg (27.0-31.0); MEAN CORPUSCULAR HGB CONC 30.2 g/dL (32.0-36.0); MEAN CORPUSCULAR VOLUME 90.7 fL (81.0-99.0); MEAN PLATELET VOLUME 9.6 fL (7.9-10.8); MONOCYTES # (AUTO) 0.8 10^3/uL (0.0-1.0); MONOCYTES % (AUTO) 7.2 %; NEUTROPHILS # (AUTO) 6.4 10^3/uL (1.5-6.6); PLT - PLATELET COUNT 297 10^3/uL (130-450); RED BLOOD COUNT 3.21 10^6/uL (4.20-5.40); RED CELL DISTRIBUTION WIDTH 16.6 % (12.0-15.0); WHITE BLOOD COUNT 10.5 x10^3/uL (4.8-10.8)
[2021-04-11 17:35] LABS: ESTIMATED AVERAGE GLUCOSE 174 mg/dL (70-100); HEMOGLOBIN A1c% 7.7 % (4.27-6.07)
== END 2021-04-10 14:45 | disposition home or self-care (01) ==
LOC: LAB.R 14:44
DX: E56.9 Vitamin deficiency, unspecified (principal); D50.9 Iron deficiency anemia, unspecified; D64.9 Anemia, unspecified; E78.5 Hyperlipidemia, unspecified; E86.0 Dehydration; E11.42 Type 2 diabetes mellitus with diabetic polyneuropathy; R11.2 Nausea with vomiting, unspecified
CPT/HCPCS: 82728; 83036; 85025

== ENCOUNTER 2021-05-21 15:11 | Outpatient (CLI) | payer MEDICARE, MEDICAID | END 2021-05-21 15:12 | disposition home or self-care (01) | LOC: LAB.R 15:11 | DX: L03.032 Cellulitis of left toe (principal) | CPT/HCPCS: 87070; 87205 ==

== ENCOUNTER 2021-07-09 15:23 | Outpatient (CLI) | payer MEDICARE, MEDICAID | END 2021-07-09 15:24 | disposition home or self-care (01) | LOC: LAB 15:23 | PROVIDERS: ATTEND Hospitalist | DX: L03.90 Cellulitis, unspecified (principal) | CPT/HCPCS: 87070; 87077; 87181; 87205 ==